=== PATIENT | female | born 1950 | race Caucasian/White ===

== ENCOUNTER 2020-09-27 13:38 | Outpatient (CLI) | payer MEDICARE, SELFPAY ==
--- NOTE | ~2020-09-27 | DEXA_ITS ---
Bone Density Report Name: Araceli Rider Age: 70 Sex: Female Ethnicity: White Date of : 1950 Indication: postmenopausal; parental hip fracture; height loss; asthma or emphysema; hysterectomy; Referring Provider: Breana Munson Study: Bone densitometry was performed. Exam Date: September 27, 2020 Accession number: [id number] Bone Density: Region BMD T-score Z-score Classification AP Spine (L1-L4) 0.927 -1.1 1.0 Osteopenia Femoral Neck (Left) 0.598 -2.3 -0.5 Osteopenia Total Hip (Left) 0.728 -1.8 -0.3 Osteopenia Total Hip Bilateral Avg 0.728 -1.8 -0.3 Osteopenia Femoral Neck (Right) 0.598 -2.3 -0.5 Osteopenia Total Hip (Right) 0.728 -1.8 -0.3 Osteopenia World Health Organization criteria for BMD impression classify patients as: Normal (T-score at or above -1.0), Osteopenia (T-score between -1.0 and -2.5), or Osteoporosis (T-score at or below -2.5). 10-year Fracture Risk(1): Major Osteoporotic Fracture 23% Hip Fracture 9.5% Reported Risk Factors: [place] (), Neck BMD=0.598, BMI=28.7, parental fracture, smoking (1) FRAX(R) Version 3.08. Fracture probability calculated for an untreated patient. Fracture probability may be lower if the patient has received treatment. Previous Exams: Region Exam Age BMD T-score BMD Change BMD Change Date g/cm2 vs Baseline vs Previous AP Spine(L1-L4) 09/27/2020 70 0.927 -1.1 -0.182(-16.4%) -0.182(-16.4%) 09/18/2001 50 1.110 0.6 Total Hip(Left) 09/27/2020 70 0.728 -1.8 -0.188(-20.5%) -0.188(-20.5%) 09/18/2001 50 0.916 -0.2 Total Hip(Right) 09/27/2020 70 0.728 -1.8 -0.219(-23.1%) -0.219(-23.1%) 09/18/2001 50 0.947 0.0 *Denotes significance at 95% confidence level, LSC for AP Spine = 0.022 g/cm2, LSC for Total Hip = 0.027 g/cm2 Clinical Information Provided by Patient: Parent has had a hip fracture Smokes Has used the following medications: Vitamin D Has the following medical conditions: Asthma or Emphysema, Hysterectomy Patient maximum height was 63 Menopause Age: 40 No regular weight bearing exercise Does not regularly consume dairy products Drinks caffeinated beverages Onset of menses at age 12 Number of children 3 Impression: The patient has low bone mass, based on the Left Femoral Neck T-score. The patient has an estimated ten-year risk of hip fracture of 9.5% and an estimated ten-year risk of major fracture of 23%, based on the WHO FRAX algorithm. The misty
--- NOTE | ~2020-09-27 | MM_ITS ---
EXAMINATION: MM screening mimi BI w rianna HISTORY: Screening mammogram TECHNIQUE: Craniocaudal and mediolateral oblique 3-D tomosynthesis images were obtained and synthetic 2-D images were generated. CAD analysis was submitted and interpreted. COMPARISON: 03/03/2010 BREAST PARENCHYMAL COMPOSITION: The breasts are heterogeneously dense, which may obscure small masses . FINDINGS: There is no evidence of suspicious mass, calcification, or architectural distortion to sugg est malignancy in either breast. There has been no suspicious interval change. IMPRESSION: 1. No mammographic evidence of malignancy. 2. Recommend routine screening mammography in one year. BI-RADS Category 1: Negative Reviewed, dictated and finalized at location A.
== END 2020-09-27 13:39 | disposition home or self-care (01) ==
PROVIDERS: PCP Internal Medicine; Visit Provider Nurse Practitioner
DX: Z12.31 Encounter for screening mammogram for malignant neoplasm of breast (principal); Z78.0 Asymptomatic menopausal state; M85.89 Other specified disorders of bone density and structure, multiple sites
CPT/HCPCS: 77063; 77067; 77080

== ENCOUNTER 2021-03-27 15:12 | Outpatient (CLI) | payer MEDICARE, SELFPAY ==
--- NOTE | ~2021-03-27 | CT_ITS ---
EXAMINATION: CT lung screening DATE: 03/27/2021 15:42 INDICATION: Personal history of tobacco dependence TECHNIQUE: Computed tomography (CT) of the chest was performed without intravenous contrast. The dose -length product was 67.58 mGy-cm. Automated exposure control and iterative reconstruction technique w ere employed. COMPARISON: Chest x-ray dated 12/06/2007 FINDINGS: No thoracic lymphadenopathy. Small pericardial effusion. No significant pleural effusion. T he upper abdomen is unremarkable. Status post cholecystectomy. There is emphysema. There is apical sc arring/pleural thickening. There is right lower lobe atelectasis/scarring. There are small bilateral pulmonary nodules measuring 4 mm or less. No endobronchial lesions. There is mild thoracic spondylosi s. No lytic or blastic lesions. IMPRESSION: 1. Lung-RADS category 2: Benign appearance or behavior. Continue annual screening with noncontrast lo w-dose chest CT in 12 months. Reviewed, dictated and finalized at location A. IMPRESSION: 1. Lung-RADS category 2: Benign appearance or behavior. Continue annual screeni ng with noncontrast low-dose chest CT in 12 months.
== END 2021-03-27 15:13 | disposition home or self-care (01) ==
LOC: ANHIMG 15:13
PROVIDERS: PCP Internal Medicine; Visit Provider Internal Medicine
DX: Z87.891 Personal history of nicotine dependence (principal)
CPT/HCPCS: 71271

== ENCOUNTER 2021-11-10 14:13 | Outpatient (CLI) | payer MEDICARE, SELFPAY ==
--- NOTE | ~2021-11-10 | US_ITS ---
EXAMINATION: US arterial ankle brachial ind DATE: 11/10/2021 15:59 INDICATION: Peripheral vascular disease, unspecified. TECHNIQUE: Segmental pressures and plethysmographic and Doppler waveforms of the brachial and lower e xtremity arteries were obtained. COMPARISON: None. FINDINGS: Right and left brachial artery pressures of 163 mm Hg and 163 mm Hg, respectively, are concordant (no rmal difference <= 30 mmHg). The right ankle-brachial index (DAISY) is 1.07 (normal >= 0.9-1.0). The right great toe-brachial index (TBI) is 0.44 (normal >= 0.65). Arterial Doppler waveforms are biphasic at the ankle. The left DAISY is 1.07. The left TBI is 0.50. Arterial Doppler waveforms are biphasic at the ankle. IMPRESSION: 1. Decreased TBIs and normal ABIs, consistent with arterial occlusive disease. Note that ABIs may be overestimated if arteries are calcified. Reviewed, dictated and finalized at location A.
== END 2021-11-10 14:14 | disposition home or self-care (01) ==
LOC: ANHIMG 14:16
PROVIDERS: PCP Internal Medicine; Visit Provider Nurse Practitioner
DX: I73.9 Peripheral vascular disease, unspecified (principal); M79.671 Pain in right foot; M79.672 Pain in left foot
CPT/HCPCS: 93922

== ENCOUNTER 2022-11-15 10:19 | Outpatient (CLI) | payer MEDICARE, SELFPAY ==
--- NOTE | ~2022-11-15 | DEXA_ITS ---
Bone Density Report Name: SANJU MCDANIEL Age: 72 Sex: Female Ethnicity: White Date of : 1950 Indication: osteopenia; monitoring treatment; parental hip fracture; height loss; asthma or emphysema; hysterectomy; postmenopausal Referring Provider: SUSANA, [facility] Study: Bone densitometry was performed. Exam Date: November 15, 2022 Accession number: [id number] Bone Density: Region BMD T-score Z-score Classification AP Spine(L1-L4) 0.949 -0.9 1.3 Normal Femoral Neck (Left) 0.591 -2.3 -0.4 Osteopenia Total Hip (Left) 0.778 -1.3 0.3 Osteopenia Femoral Neck (Right) 0.636 -1.9 0.0 Osteopenia Total Hip (Right) 0.760 -1.5 0.1 Osteopenia Total Hip Mean 0.769 -1.4 0.2 Osteopenia World Health Organization criteria for BMD impression classify patients as: Normal (T-score at or above -1.0), Osteopenia (T-score between -1.0 and -2.5), or Osteoporosis (T-score at or below -2.5). 10-year Fracture Risk: FRAX not reported because: Treated for osteoporosis Previous Exams: Region Exam Age BMD T-score BMD Change BMD Change Date g/cm2 vs Baseline vs Previous AP Spine (L1-L4) 11/15/2022 72 0.949 -0.9 0.022 (2.4%) 0.022 (2.4%) 09/27/2020 70 0.927 -1.1 Total Hip(Left) 11/15/2022 72 0.778 -1.3 0.050 (6.8%)* 0.050 (6.8%)* 09/27/2020 70 0.728 -1.8 Total Hip(Right) 11/15/2022 72 0.760 -1.5 0.031 (4.3%)* 0.031 (4.3%)* 09/27/2020 70 0.728 -1.8 *Denotes significance at 95% confidence level, LSC for AP Spine = 0.022 g/cm2, LSC for Total Hip = 0.027 g/cm2 Clinical Information Provided by Patient: Parent has had a hip fracture Smokes Is being treated for osteoporosis Has used the following medications: Fosamax (i.e. alendronate), Vitamin D Has the following medical conditions: Asthma or Emphysema, Hysterectomy Patient maximum height was 63 Menopause Age: 40 Does not regularly consume dairy products Drinks caffeinated beverages Onset of menses at age 12 Number of children 3 Impression: The patient has low bone mass, based on the Left Femoral Neck T-score. The patient has risk factors, including: parental hip fracture, smoking. No significant bone loss was observed. Discussion: PATIENT UNDER TREATMENT WITH NO SIGNIFICANT BMD LOSS SINCE LAST EXAM. In an untreated patient, BMD typically declines with age. A lack of decline or gain is usually a sign that treatment is efficacious and fracture risk is reduced. It is important
--- NOTE | ~2022-11-15 | CT_ITS ---
CT Scan of the Chest without Contrast: Clinical Indication: Lung cancer screening, smoking history Technique: Contiguous sections were acquired throughout the chest without intravenous contrast. Dose reduction technique was used on this scan by utilizing automated exposure control and iterative recon struction technique. The dose-length product (DLP) was 87.68 mGy-cm. COMPARISON: 03/27/2021 Findings: There is no evidence of any significant mediastinal, hilar or axillary lymphadenopathy. The mediastin al soft tissues appear normal. Minimal pericardial fluid noted. No pleural effusions. Biapical scarring is present. There is mild emphysema in the upper lobes. Focal areas of scarring at the right middle lobe and right lower lobe are noted. Images through the upper abdomen reveal atherosclerotic calcifications of the aorta. Impression: Lung RADS 2: Benign appearance. 12 month follow-up screening CT advised. Mild emphysema. Reviewed, dictated and finalized at [facility]. Impression: Lung RADS 2: Benign appearance. 12 month follow-up screening CT advised. Mild emphysema.
--- NOTE | ~2022-11-15 | MM_ITS ---
EXAMINATION: MM screening [facility] BI w rianna HISTORY: Screening mammogram TECHNIQUE: Craniocaudal and mediolateral oblique 3-D tomosynthesis images were obtained and synthetic 2-D images were generated. CAD analysis was submitted and interpreted. COMPARISON: 09/27/2020, 03/03/2010 BREAST PARENCHYMAL COMPOSITION: The breasts are heterogeneously dense, which may obscure small masses . FINDINGS: No suspicious mass, calcification, or architectural distortion are identified in either steph ast to suggest malignancy. There has been no suspicious interval change. IMPRESSION: 1. No mammographic evidence of malignancy. 2. Recommend routine screening mammography in one year. BI-RADS Category 1: Negative Reviewed, dictated and finalized at location A.
== END 2022-11-15 10:20 | disposition home or self-care (01) ==
PROVIDERS: PCP Family Medicine; Visit Provider Family Medicine
DX: Z12.31 Encounter for screening mammogram for malignant neoplasm of breast (principal); Z12.2 Encounter for screening for malignant neoplasm of respiratory organs; F17.210 Nicotine dependence, cigarettes, uncomplicated; J43.9 Emphysema, unspecified; M85.89 Other specified disorders of bone density and structure, multiple sites
CPT/HCPCS: 71271; 77063; 77067; 77080

== ENCOUNTER 2023-11-18 14:06 | Outpatient (CLI) | payer MEDICARE, SELFPAY ==
--- NOTE | ~2023-11-18 | CT_ITS ---
CT Scan of the Chest without Contrast: Clinical Indication: Lung cancer screening, nicotine dependence Technique: Contiguous sections were acquired throughout the chest without intravenous contrast. Dose reduction technique was used on this scan by utilizing automated exposure control and iterative recon struction technique. The dose-length product (DLP) was 76.21 mGy-cm. COMPARISON: 11/15/2022 Findings: There is no evidence of any significant mediastinal, hilar or axillary lymphadenopathy. The mediastin al soft tissues appear normal. Possible pericardial effusion. No pleural effusions. Stable biapical scarring and subcentimeter right apical pulmonary nodules. Mild to moderate emphysema present in the upper lobes. Stable focal scarring right middle lobe and right lower lobe. Images through the upper abdomen reveal no abnormalities. Impression: Lung RADS 2: Benign appearance. 12 month follow-up screening CT advised. Reviewed, dictated and finalized at [facility]. Impression: Lung RADS 2: Benign appearance. 12 month follow-up screening CT advised.
== END 2023-11-18 14:07 | disposition home or self-care (01) ==
PROVIDERS: PCP Family Medicine; Visit Provider Family Medicine
DX: Z12.2 Encounter for screening for malignant neoplasm of respiratory organs (principal); F17.210 Nicotine dependence, cigarettes, uncomplicated
CPT/HCPCS: 71271

== ENCOUNTER 2024-02-12 14:07 | Outpatient (CLI) | payer MEDICARE, SELFPAY ==
--- NOTE | ~2024-02-12 | MM_ITS ---
EXAMINATION: MM screening mimi BI w rianna HISTORY: Screening TECHNIQUE: Craniocaudal and mediolateral oblique 3-D tomosynthesis images were obtained and synthetic 2-D images were generated. CAD analysis was submitted and interpreted. COMPARISON: Comparison to multiple prior studies sequentially, with oldest reviewed study dated 09/27. BREAST PARENCHYMAL COMPOSITION: Dense: The breasts are heterogeneously dense, which may obscure small masses FINDINGS: There is no evidence of suspicious mass, calcification, or architectural distortion to sugg est malignancy in either breast. There has been no suspicious interval change. IMPRESSION: 1. No mammographic evidence of malignancy. 2. Recommend routine screening mammography in one year. BI-RADS Category 1: Negative Reviewed, dictated and finalized at location B.
== END 2024-02-12 14:08 | disposition home or self-care (01) ==
LOC: ANHIMG 14:08
PROVIDERS: PCP Family Medicine; Visit Provider Family Medicine
DX: Z12.31 Encounter for screening mammogram for malignant neoplasm of breast (principal)
CPT/HCPCS: 77063; 77067

== ENCOUNTER 2024-09-12 12:09 | Emergency (ER) | payer MEDICARE, SELFPAY ==
--- NOTE | ~2024-09-12 | XR_ITS ---
EXAMINATION: XR chest 2V DATE: 09/12/2024 12:34 INDICATION: Shortness of breath. TECHNIQUE: Frontal and lateral views of the chest were obtained. COMPARISON: Chest 2 views 12/06/2007, chest CT 11/18/2023 FINDINGS: There is mild scarring at the lung apices. There are lucencies in the lungs, consistent wit h emphysema. No pleural effusion or pneumothorax. The heart size is normal. Surgical clips in the rig ht upper quadrant are likely from cholecystectomy. IMPRESSION: 1. Emphysema. Reviewed, dictated and finalized at location A. ASTRUCTURE CONSULTANT IMPRESSION: 1. Emphysema.
--- OUTSIDE RECORDS SUMMARY | 2024-09-12 12:13 | XMS_ITS | Data Portability ---
Author Organization [place] [facility] [employer], Main Office Address [address] [place] [address] Care Team Providers Care Beadworker Name Role Phone JARETT BLACK Primary Care Provider [phone] Assessment Encounter Date Assessment Date Assessment LastModified by Organization Details LastModified Time 01/15/2024 01/15/2024 73 yo F with - HLD - EMPHYSEMA, mild - DEPRESSION - ANXIETY - CHRONIC INSOMNIA - HTN - RLS - OSTEOPOROSIS - SMOKER - OVERWEIGHT LDCT chest: 11/18/23. Annual labs: 09/25/23. LDCT chest: 11/15/22. Annual labs: 09/12/22. D/w pt in detail about her conditions, recent labs & imagines and further plan of care. Will do random UDS today. [place]. [place] declined to do any changes in her Anxiety meds. Meds as directed. Diet and exercise explained in detail. BP diary education given and call us if any concerns. Cont f/u with Derm at [facility] [facility] as per schedule. Offered to refer to Counsellor/Psych ; but pt declined. Offered to refer for PFT/Pulmo; but pt declined. HM: WWE - 10/09/22, normal. Cont f/u as needed. Mammo - 11/15/22, normal. Ordered. Colonoscopy - Pt declined. Cologuard 09/20/22 - neg. DEXA - 11/15/22, osteopenia ++. Flu - Pt declined. Tdap - Pt declined. Pneumo - Pt declined. Shingrix - At pharmacy/HD. F/u in 1-2 months. Lipids before next visit. Annual labs in 09/29. [email or web address] Not available 01/15/2024 14:27:44 02/19/2024 02/19/2024 73 yo F with - HLD - EMPHYSEMA, mild - DEPRESSION - ANXIETY - CHRONIC INSOMNIA - HTN - RLS - OSTEOPOROSIS - SMOKER - OVERWEIGHT LDCT chest: 11/18/23. Annual labs: 09/25/23. LDCT chest: 11/15/22. Annual labs: 09/12/22. D/w pt in detail about her conditions, recent labs & imagines and [place] of care. [place]. Pt declined to do any changes in her Anxiety meds. Meds as directed. Diet and exercise explained in detail. BP diary education given and call us if any concerns. Cont f/u with Derm at [facility] [facility] as per schedule. Offered to refer to Counsellor/Psych ; but pt declined. Offered to refer for PFT/Pulmo; but pt declined. HM: WWE - 10/09/22, normal. Cont f/u as needed. Mammo - 02/12/24, normal. Colonoscopy - Pt declined. Cologuard 09/20/22 - neg. DEXA - 11/15/22, osteopenia ++. Flu - Pt declined. Tdap - Pt declined. Pneumo - Pt declined. Shingrix - At pharmacy/HD. F/u in 3 months. Lipids before next visit. Annual labs in 09/29. [email or web address] Not available 02/19/2024 14:37:18 05/21/2024 05/21/2024 73 yo F with - HLD - EMPHYSEMA, mild - DEPRESSION - ANXIETY - CHRONIC INSOMNIA - HTN - RLS - OSTEOPOROSIS - SMOKER - OVERWEIGHT LDCT chest: 11/18/23. Annual labs: 09/25/23. LDCT chest: 11/15/22. Annual labs: 09/12/22. D/w pt in detail about her conditions, recent labs & imagines and [place] of care. [place]. Pt declined to do any changes in her Anxiety meds. Meds as directed. Diet and exercise explained in detail. BP diary education given and call us if any concerns. Cont f/u with Derm at [facility] [facility] as per schedule. Offered to refer to Counsellor/Psych ; but pt declined. Offered to refer for PFT/Pulmo; but pt declined. HM: WWE - 10/09/22, normal. Cont f/u as needed. Mammo - 02/12/24, normal. Colonoscopy - Pt declined. Cologuard 09/20/22 - neg. DEXA - 11/15/22, osteopenia ++. Flu - Pt declined. Tdap - Pt declined. Pneumo - Pt declined. Shingrix - At pharmacy/HD. F/u in 3 months. Annual labs in 09/29. Not available 05/21/2024 14:11:20 08/24/2024 08/24/2024 73 yo F with - HLD - EMPHYSEMA, mild - DEPRESSION - ANXIETY - CHRONIC INSOMNIA - HTN - RLS - OSTEOPOROSIS - SMOKER - OVERWEIGHT LDCT chest: 11/18/23. Annual labs: 09/25/23. LDCT chest: 11/15/22. Annual labs: 09/12/22. D/w pt in detail about her conditions, recent labs & imagines and further plan of care. Will do random UDS today. Last dose was today morning. [place] Pt declined to do any changes in her Anxiety meds. Meds as directed. Diet and exercise explained in detail. BP diary education given and call us if any concerns. Cont f/u with Derm at [place] [facility] as per schedule. Offered to refer to Counsellor/Psych ; but pt declined. Offered to refer for PFT/Pulmo; but pt declined. HM: WWE - 10/09/22, normal. Cont f/u as needed. Mammo - 02/12/24, normal. Colonoscopy - Pt declined. Cologuard 09/20/22 - neg. DEXA - 11/15/22, osteopenia ++. Flu - Pt declined. Tdap - Pt declined. Pneumo - Pt declined. Shingrix - At pharmacy/HD. F/u in 2 months. Annual labs in 09/29. [email or web address] Not available 08/24/2024 14:48:41 09/09/2024 09/09/2024 The patient gave verbal consent using TelePhonic services and the consent is documented in the medical record prior to using the service. The patient has been informed of what a TeleMedicine visit is. Patient is located at home. Provider is located at office. Names and roles of persons in addition to the patient and provider participating in telemedicine services include staff. The patient had a 11 minute TeleMedicine consultation via phone call to discuss the following: Not available 09/09/2024 16:33:47 Plan of Treatment Reminders Order Date Submit Date Provider Last Modified By Organization Details Last Modified Time Details Appointments Medicare Wellness 30 2024 10:30A M Jarett Black MD Not available Not available Not available Lab drug screen, urine - To check for listed controlle d medicatio n [address] (Lab), [address] [place], [address], 09/04/2024 11:54:32 lipid panel, serum [address] (Lab), [address] [place], [address], 08/20/2024 13:57:48 drug screen, urine - To check for listed controlle d medicatio n 2023 024 [facility] (Lab), [address] [place], [address], 01/15/2024 22:14:45 lipid panel, serum 2023 024 [facility] (Lab), [address] [place], [address], 02/19/2024 19:50:51 Referral None recorded. Procedures None recorded. Surgeries None recorded. Imaging None recorded. Medication Orders azithromy shyla 250 mg tablet 2024 025 [facility] #01981, [address] [place], [place], [id number], 09/09/2024 16:38:49 prednison e 10 mg tablet 2024 025 [facility] #03297, [address] [place], [place], [id number], 09/09/2024 16:38:51 benzonata te 200 mg capsule 2024 025 [facility] #68449, [address] [place], [place], [id number], 09/09/2024 16:38:50 alendrona te 70 mg tablet 2024 025 [facility] #81352, [address] [place], [place], [id number], 08/24/2024 14:44:24 lisinopri l 20 mg-hydroc hlorothia zide 12.5 mg tablet 2024 025 [facility] #53498, [address] [place], [place], [id number], 08/24/2024 14:44:25 hydrocort isone 2.5 % topical cream 2024 025 [facility] #33020, [address] [place], [place], [id number], 08/24/2024 14:44:23 Calcium 600 + D(3) 600 mg-10 mcg (400 unit) tablet 2024 025 [facility] #51986, [address] [place], [place], [id number], 08/24/2024 14:44:24 rosuvasta tin 10 mg tablet 2024 025 [facility] #36979, [address] [place], [place], [id number], 08/24/2024 14:44:23 trazodone 150 mg tablet 2024 025 [facility] #20535, [address] [place], [place], [id number], 08/24/2024 14:44:34 albuterol sulfate HFA 90 mcg/actua tion aerosol inhaler 2024 025 [facility] #80277, [address] [place], [place], [id number], 08/24/2024 14:44:25 gabapenti n 300 mg capsule 2024 025 [facility] #24107, [address] [place], [place], [id number], 08/24/2024 14:44:26 alendrona te 70 mg tablet 2023 024 [facility] #12542, [address] [place], [place], [id number], 05/21/2024 14:18:12 lisinopri l 20 mg-hydroc hlorothia zide 12.5 mg tablet 2023 024 [facility] #41834, [address] [place], [place], [id number], 05/21/2024 14:18:41 nicotine 14 mg/24 hr daily transderm al patch 2023 024 [facility] #79217, [address] [place], [place], [id number], 05/21/2024 14:18:14 alprazola m 1 mg tablet 2023 024 [facility] #96822, [address] [place], [place], [id number], 05/21/2024 14:22:34 hydrocort isone 2.5 % topical cream 2023 024 [facility] #85393, [address] [place], [place], [id number], 05/21/2024 14:18:16 Calcium 600 + D(3) 600 mg-10 mcg (400 unit) tablet 2023 [facility] #16119, [address] [place], [place], [id number], 05/21/2024 14:18:21 rosuvasta tin 10 mg tablet 2023 [facility] #20107, [address] [place], [place], [id number], 05/21/2024 14:18:15 trazodone 150 mg tablet 2023 [facility] #93247, [address] [place], [place], [id number], 05/21/2024 14:18:14 albuterol sulfate HFA 90 mcg/actua tion aerosol inhaler 2023 [facility] #05503, [address] [place], [place], [id number], 05/21/2024 14:18:15 gabapenti n 300 mg capsule 2023 [facility] #24332, [address] [place], [place], [id number], 05/21/2024 14:18:31 alendrona te 70 mg tablet 2023 [facility] #08751, [address] [place], [place], [id number], 02/19/2024 14:32:09 lisinopri l 20 mg-hydroc hlorothia zide 12.5 mg tablet 2023 024 [facility] #85279, [address] [place], [place], [id number], 02/19/2024 14:32:08 nicotine 14 mg/24 hr daily transderm al patch 2023 024 [facility] #51302, [address] [place], [place], [id number], 02/19/2024 14:38:44 hydrocort isone 2.5 % topical cream 2023 024 [facility] #28482, [address] [place], [place], [id number], 02/19/2024 14:32:10 Calcium 600 + D(3) 600 mg-10 mcg (400 unit) tablet 2023 024 [facility] #34255, [address] [place], [place], [id number], 02/19/2024 14:32:11 rosuvasta tin 10 mg tablet 2023 024 [facility] #43805, [address] [place], [place], [id number], 02/19/2024 14:32:12 trazodone 150 mg tablet 2023 024 [facility] #31837, [address] [place], [place], [id number], 02/19/2024 14:32:13 albuterol sulfate HFA 90 mcg/actua tion aerosol inhaler 2023 024 [facility] #61785, [address] [place], [place], [id number], 02/19/2024 14:32:11 gabapenti n 300 mg capsule 2023 024 [facility] #88025, [address] [place], [place], [id number], 02/19/2024 14:32:10 alendrona te 70 mg tablet 2023 024 [facility] #06299, [address] [place], [place], [id number], 01/15/2024 14:11:24 Chantix Starting Month Box 0.5 mg (11)-1 mg (42) tablets in dose pack 2023 [facility] #20316, [address] [place], [place], [id number], 01/15/2024 14:11:25 nicotine 14 mg/24 hr daily transderm al patch 2023 [facility] #97437, [address] [place], [place], [id number], 01/15/2024 14:11:46 hydrocort isone 2.5 % topical cream 2023 [facility] #25758, [address] [place], [place], [id number], 01/15/2024 14:11:27 albuterol sulfate HFA 90 mcg/actua tion aerosol inhaler 2023 024 [facility] #83683, [address] [place], [place], [id number], 01/15/2024 14:11:27 gabapenti n 300 mg capsule 2023 024 [facility] #06932, [address] [place], [place], [id number], 01/15/2024 14:11:28 meclizine 25 mg tablet 2023 024 [facility] #72823, [address] [place], [place], [id number], 01/15/2024 14:11:28 lisinopri l 20 mg-hydroc hlorothia zide 12.5 mg tablet 2023 [facility] #33140, [address] [place], [place], [id number], 01/15/2024 14:11:28 alprazola m 1 mg tablet 2023 [facility] #32156, [address] [place], [place], [id number], 01/15/2024 14:11:46 Calcium 600 + D(3) 600 mg-10 mcg (400 unit) tablet 2023 [facility] #91421, [address] [place], [place], [id number], 01/15/2024 14:11:26 rosuvasta tin 10 mg tablet 2023 [facility] #18506, [address] [place], [place], [id number], 01/15/2024 14:11:26 trazodone 150 mg tablet 2023 [facility] #26406, [address] [place], [place], [id number], 01/15/2024 14:11:27 Patient TargetsNo targets recorded. Patient Instructions Encounter Date Encounter Id Patient Instructions Last Modified By Organization Details Last Modified Time 09/09/2024 [id number] Due to the COVID-19 (Novel Coronavirus) pandemic, it is within this context (and with the understanding that this method of patient encounter is in the patient s best interest as well as the health and safety of other patients and the public) that veterans health administration is being provided for this patient encounter rather than a [id number] visit. This patient encounter is appropriate at this time. This patient has been advised of the potential risks and limitations of this mode of treatment (including, but not limited to, the absence of in-person examination) and has agreed to be treated in a remote fashion despite these risks. Any and all of the patient s /patient s family s questions on this issue have been answered, and I have made no promises or guarantees to the patient. The patient has also been advised to contact this office for worsening conditions or problems, and seek emergency medical treatment and/or call 911 if the patient deems either necessary. HPI and/or vitals, if listed, were provided by the patient. Not available 09/09/2024 16:33:15 Reason for Referral None Reported. Results Created Date Observation Date Name Description Value Unit Range Abnormal Flag Note LastModifiedBy Organization Detail LastModifiedTime 01/15/20 24 01/15/2024 URINE DRUG SCREE N amphetamines NEGATI VE Amphe tamin e cut off 500 ng/mL Not Available [facility] (Lab) [address] [place], [address], 01/15/2024 22:14:45 01/15/20 24 01/15/2024 URINE DRUG SCREE N barbiturates NEGATI VE Adelina turat e cut off 200 ng/mL Not Available [facility] (Lab) [address] [place], [address], 01/15/2024 22:14:45 01/15/20 24 01/15/2024 URINE DRUG SCREE N benzodiazepi jasmeet POSITI VE abnormal Benzo diaze pine cut off 200 ng/mL Not Available [facility] (Lab) [address] [place], [address], 01/15/2024 22:14:45 01/15/20 24 01/15/2024 URINE DRUG SCREE N cocaine NEGATI VE Cocai ne metab olite cut off 150 ng/mL Not Available [facility] (Lab) [address] [place], [address], 01/15/2024 22:14:45 01/15/20 24 01/15/2024 URINE DRUG SCREE N fentanyl NEGATI VE Fenta nyl cut off 1.0 ng/mL Not Available [facility] (Lab) [address] [place], [address], 01/15/2024 22:14:45 01/15/20 24 01/15/2024 URINE DRUG SCREE N methadone NEGATI VE Metha done cutof f 300 ng/mL . Not Available [facility] (Lab) [address] [place], [address], 01/15/2024 22:14:45 01/15/20 24 01/15/2024 URINE DRUG SCREE N opiates NEGATI VE Opiat e cut off 300 ng/mL Not Available [facility] (Lab) [address] [place], [address], 01/15/2024 22:14:45 01/15/20 24 01/15/2024 URINE DRUG SCREE N oxycodone NEGATI VE Oxyco done cut off 100 ng/mL Not Available [facility] (Lab) [address] [place], [address], 01/15/2024 22:14:45 01/15/20 24 01/15/2024 URINE DRUG SCREE N phencyclidin e NEGATI VE PCP cut off 25 ng/mL Not Available [facility] (Lab) [address] [place], [address], 01/15/2024 22:14:45 01/15/20 24 01/15/2024 URINE DRUG SCREE N marijuana POSITI VE abnormal Marij uana cut off 50 ng/mL ANY POSIT BRICE RESUL TS REPOR BILLIE ARE UNCON FIRME D, AND SUCH, SHOUL D BE USED FOR MEDIC AL TREAT MENT PURPO SES ONLY. Not Available [facility] (Lab) [address] [place], [address], 01/15/2024 22:14:45 02/19/20 24 02/19/2024 LIPID PANEL cholesterol 130 mg/dL 140-19 9 low NIH ROLO NSUS RECOM MENDA TION FOR SHRUTHI STERO L: ADULT CHILD LOW RISK: <200 <170 BORDE RLINE : <200- 239 ----- HIGH RISK: >240 >200 Not Available [facility] (Lab) [address] [place], [address], 02/19/2024 19:50:51 02/19/20 24 02/19/2024 LIPID PANEL triglyceride s 91 mg/dL 0-150 NIH ROLO NSUS REPOR T RECOM MENDA TION FOR TRIGL YCERI ELSA: ADULT CHILD LOW RISK: <150 ----- BODER LINE: 150-1 99 ----- HIGH RISK: >200 ----- Not Available [facility] (Lab) [address] [place], [address], 02/19/2024 19:50:51 02/19/20 24 02/19/2024 LIPID PANEL HDL cholesterol 66 mg/dL 40- Not Available [facility] (Lab) [address] [place], [address], 02/19/2024 19:50:51 02/19/20 24 02/19/2024 LIPID PANEL LDL cholesterol, calculated 46 mg/dL 0-130 NIH ROLO NSUS REPOR T RECOM MENDA TIONS FOR LDL: ADULT CHILD LOW RISK <130 <110 (OPTI MAL LDL) <100 ----- BORDE RLINE : 130-1 59 ----- HIGH RISK: >160 >130 A TRIGL YCERI DE RESUL T >400 INVAL IDATE S THE CALCU LATIO N FOR LDL FRACT IONAT ION - THE LDL RESUL T WILL NOT BE REPOR BILLIE. Not Available [facility] (Lab) [address] [place], [address], 02/19/2024 19:50:51 02/12/20 24 02/12/2024 MAMMO , scree ameena, bilat eral No observ ation record ed. [facility] [address], [place], [address], 02/19/2024 14:28:06 Result Notes None recorded. Problems Name Problem SNOMED Code Status Onset Date Resolution Date Notes Provider Name and Address Organization Details Recorded Time Anxiety disorder 298216426 Active 2022 Not Available [facility] 3 01:47:45 Restless legs 59388547 Active 2022 Not Available [facility] 3 01:47:45 Depressive disorder 14153084 Active 2022 Not Available [facility] 3 01:47:45 Hypertensi ve disorder 75607040 Active 2022 Not Available [facility] 3 01:47:45 Hyperlipid emia 74406797 Active 2022 Not Available [facility] 3 01:47:45 Osteoporos is 63965317 Active 2022 Not Available [facility] 3 01:47:45 194199557 Active 2022 Not Available [facility] 3 01:47:46 Chronic insomnia 139121100 Active 2022 Not Available [facility] 3 01:47:46 Smoker 95618394 Active 2022 Not Available [facility] 3 01:47:46 Overweight 460414427 Active 2022 Jarett Black MD [address], [place], [address] , [employer] [facility] [employer] 3 10:13:45 Screening for malignant neoplasm of colon Active 2022 Sil Garner NP [address], [address], [place], [address] , [employer] 3 14:53:49 Osteopenia 496527575 Active 2022 Jarett Black MD [address], [address], [place], [address] , [employer] [facility] [employer] 3 08:22:33 Pulmonary emphysema 47906208 Active 2022 Jarett Black MD [address], [address], [place], [address] , [employer] 3 14:16:30 Herpes labialis 8159893 Active 2022 Jarett Black MD [address], [address], [place], [address] , [employer] 3 15:10:57 Lesion of skin of face 917999888729 Active 2022 Jarett Black MD [address], [address], [place], [address] , [employer] 3 15:11:42 Bronchitis 84947974 Active 2023 Jarett Black MD [address], [address], [place], [address] , [employer] 4 14:55:53 Acute urinary tract infection 914888834 Active 2023 SAVITA Dutta [address], [address], [place], [address] , [employer] 4 14:08:44 Bilateral earache 324935358 Active 2023 Jarett Black MD [address], [address], [place], [address] , [employer] 4 14:29:02 Allergic contact dermatitis 451971823 Active 2023 Jarett Black MD [address], [address], [place], [address] , [employer] 4 14:07:02 Motion sickness 45352364 Active 2023 Jarett Black MD [address], [address], [place], [address] , [employer] [facility] 4 14:07:25 Cough 72639797 Active 2024 JarettMD Love [address], [place], [address] , [place] [facility] 16:35:17 Fever 628018482 Active 2024 MD Love Weaver [address], [place], [address] , [place] [facility] 16:38:35 Problem Notes None recorded. Procedures Surgical History Date Name Laterality Status Provider Name and Address Organization Details Recorded Time 08/24/19 25 Smoking Cessation completed MD Love Weaver [address], [place], [address], [employer] [place] [facility] 08/24/2024 14:38:39 05/21/20 24 Smoking Cessation completed MD Love Weaver [address], [place], [address], [place] [facility] [employer] 05/21/2024 14:12:23 09/17/19 24 Medicare Wellness CPT Code, Initial completed October VENUS Beckham [place] [facility] 09/16/2023 15:09:23 09/17/19 24 Smoking Cessation completed MD Love Weaver [address], [place], [address], [place] [facility] 09/17/2023 12:46:57 06/18/20 23 Smoking Cessation completed MD Love Weaver [address], [place], [address], [place] [facility] 06/18/2023 12:47:33 03/12/20 23 Smoking Cessation completed MD Love Weaver [address], [place], [address], [employer] [place] [facility] 03/12/2023 14:30:09 12/11/19 23 Smoking Cessation completed MD Love Weaver [address], [place], [address], [place] [facility] 12/10/2022 14:17:07 09/13/19 23 Smoking Cessation completed Jarett Black MD [address], [address], [place], [address], [facility] [employer] 09/12/2022 10:23:27 07/08/19 22 Most Recent Bone Density completed Not Available [facility] 09/06/2022 01:47:18 07/08/19 03 Hysterectomy completed Not Available [facility] 09/06/2022 01:47:19 cholecystectomy completed Not Available [facility] 09/06/2022 01:47:19 Tonsillectomy completed Not Available [facility] 09/06/2022 01:47:19 Imaging Results Imaging Date Name Status LastModified by Organiz ation Details LastModified Time 02/12/2024 MAMMO, screening, bilateral completed [id number], [place], [address], 02/19/2024 14:28:06 Procedure Notes None recorded. Medical Equipment None Reported. Allergies No known drug allergies Medications Name Sig Start Date Stop Date Status Note LastModified by Organization Details LastModified Time bupropion HCl SR 150 mg tablet,12 hr sustained-r elease Take 1 tablet twice a day by oral route as directed for 90 days. 09/16 completed Not Available Not Available Not Available prednisone 10 mg tablet Take 1 tablet every day by oral route as directed for 7 days. 2024 active Not Available Not Available Not Avai lable nicotine 14 mg/24 hr daily transdermal patch Apply 1 patch every day by transderm al route as directed for 30 days. 2023 active Not Available Not Available Not Avai lable trazodone 50 mg tablet Take 1 tablet every day by oral route at bedtime for 90 days. 09/27 completed Not Available Not Available Not Available lisinopril 20 mg-hydrochl orothiazide 12.5 mg tablet Take 1 tablet every day by oral route in the morning for 90 days. 2024 active Not Available Not Available Not Avai lable azithromyci n 250 mg tablet TAKE 2 TABLETS (500 MG) BY ORAL ROUTE ONCE DAILY FOR 1 DAY THEN 1 TABLET (250 MG) BY ORAL ROUTE ONCE DAILY FOR 4 DAYS 2024 active Not Available Not Available Not Avai lable alprazolam 1 mg tablet TAKE 1 TABLET BY MOUTH EVERY 12 HOURS NEEDED 2024 active Not Available Not Available Not Avai lable benzonatate 200 mg capsule Take 1 capsule every 8 hours by oral route as needed for 5 days. 2024 active Not Available Not Available Not Avai lable hydrocodone 5 mg-acetamin ophen 325 mg tablet 10/15 completed Not Available Not Available Not Available alendronate 70 mg tablet Take 1 tablet every week by oral route as directed. 2024 active Not Available Not Available Not Avai lable sertraline 100 mg tablet Take 1 tablet every day by oral route in the morning for 90 days. 01/14 completed Not Available Not Available Not Available valacyclovi r 500 mg tablet Take 1 tablet 3 times a day by oral route as directed for 7 days. active Not Available Not Available No t Available ondansetron 8 mg disintegrat ing tablet 10/15 completed Not Available Not Available Not Available hydrocortis one 2.5 % topical cream with perineal applicator 08/02 completed Not Available Not Available Not Available meclizine 25 mg tablet Take 1 tablet every 8 hours by oral route as needed for 10 days. active Not Available Not Available No t Available cephalexin 500 mg capsule 10/15 completed Not Available Not Available Not Available trazodone 150 mg tablet Take 1 tablet every day by oral route at bedtime for 90 days. 2024 active Not Available Not Available Not Avai lable nicotine 21 mg/24 hr daily transdermal patch Apply 1 patch every day by transderm al route as directed for 30 days. 2022 active Not Available Not Available Not Avai lable gabapentin 300 mg capsule Take 1 capsule every 12 hours by oral route as directed for 90 days. 2024 active Not Available Not Available Not Avai lable hydrocortis one 2.5 % topical cream APPLY A THIN LAYER TO THE AFFECTED AREA(S) BY TOPICAL ROUTE 2 TIMES PER DAY 2024 active Not Available Not Available Not Avai lable zolpidem 10 mg tablet 10/09 completed Not Available Not Available Not Available albuterol sulfate HFA 90 mcg/actuati on aerosol inhaler Inhale 2 puffs every 6 hours by inhalatio n route as needed for 15 days. 2024 active Not Available Not Available Not Avai lable sertraline 50 mg tablet Take 1 tablet every day by oral route in the morning for 90 days. 09/27 completed Not Available Not Available Not Available neomycin-po lymyxin-hyd rocort 3.5 mg-10,000 unit/mL-1 % ear drops,susp INSTILL 3 DROPS INTO AFFECTED EAR(S) BY OTIC ROUTE 3 TIMES PER DAY 01/14 completed Not Available Not Available Not Available rosuvastati n 5 mg tablet Take 1 tablet every day by oral route at bedtime for 90 days. 10/15 completed Not Available Not Available Not Available rosuvastati n 10 mg tablet Take 1 tablet every day by oral route at bedtime for 90 days. 2024 active Not Available Not Available Not Avai lable nitrofurant oin monohydrate /macrocryst als 100 mg capsule Take 1 capsule every 12 hours by oral route as directed for 5 days. 01/14 completed Not Available Not Available Not Available Vitamin C 2022 active Not Available Not Available Not Avai lable Oysco 500/D 2022 active Not Available Not Available Not Avai lable Fish Oil 2022 active Not Available Not Available Not Avai lable varenicline tartrate 0.5 mg (11)-1 mg (42) tablets in a dose pack Take 1 startr pk every day by oral route as directed. active Not Available Not Available No t Available Calcium 600 + D(3) 600 mg-10 mcg (400 unit) tablet Take 1 tablet twice a day by oral route as directed for 90 days. 2024 active Not Available Not Available Not Avai lable Paxlovid 300 mg (150 mg x 2)-100 mg tablets in a dose pack 08/02 completed Not Available Not Available Not Available Vitals Date Recorded Body height Body mass index (BMI) Body weight Body temperature Heart rate Oxygen saturation Oxygen saturation in Arterial blood by Pulse oximetry Systolic blood pressure Diastolic blood pressure Provider Name and Address Organization Details Last Updated DateTime 4 160.02 cm 27.5 kg/m2 54689.2 5 g 96.9 [degF] 68 /min 98 % 98 % 116 mm[Hg] 78 mm[Hg] Yadira Patel RN [facility] 4 14:00:58 Date Recorded Body height Body mass index (BMI) Body weight Body temperature Heart rate Respiratory rate Oxygen saturation Oxygen saturation in Arterial blood by Pulse oximetry Systolic blood pressure Diastolic blood pressure Provider Name and Address Organization Details Last Updated DateTime 4 160.02 cm 27.1 kg/m2 49477.6 3 g 97.1 [degF] 62 /min 20 /min 98 % 98 % 122 mm[Hg] 66 mm[Hg] Mervin Thompson [facility] [employer] 4 14:19:52 Date Recorded Body height Body mass index (BMI) Body weight Body temperature Heart rate Oxygen saturation Oxygen saturation in Arterial blood by Pulse oximetry Provider Name and Address Organization Details Last Updated DateTime 4 160.02 cm 25.8 kg/m2 88943.7 7 g 97.3 [degF] 80 /min 95 % 95 % Yadira Patel RN [facility] 4 14:06:50 Date Recorded Systolic blood pressure Diastolic blood pressure Provider Name and Address Organization Details Last Updated DateTime 05/21/2024 130 mm[Hg] 82 mm[Hg] Jarett Black MD [address], [place], [address] [employer] [facility] [employer] 05/21/2024 14:21:19 Date Recorded Body height Body mass index (BMI) Body weight Body temperature Oxygen saturation Oxygen saturation in Arterial blood by Pulse oximetry Heart rate Provider Name and Address Organization Details Last Updated DateTime 5 160.02 cm 27.3 kg/m2 32023.9 7 g 97.3 [degF] 97 % 97 % 94 /min Disha Andrews RN [facility] 5 14:35:25 Date Recorded Systolic blood pressure Diastolic blood pressure Provider Name and Address Organization Details Last Updated DateTime 08/24/2024 170 mm[Hg] 90 mm[Hg] Jarett Black MD [address], [address], [place], [address], [facility] 08/24/2024 14:46:03 Social History Question Answer Notes LastModified by Organization Details LastModified Time Tobacco Smoking Status Current Every Day Smoker Not Available [facility] 09/06/2022 01:47:07 Do You Have An Advance Directive? No MIGRATION.0301 [id number] Information not available 09/06/2022 What Is Your Level Of Alcohol Consumption? None MIGRATION.030 [id number] Information not available 09/06/2022 Are You Blind Or Do You Have Difficulty Seeing? No MIGRATION.030 [id number] Information not available 09/06/2022 Is Blood Transfusion Acceptable In An Emergency? No Information not available 10/09/2022 What Is Your Code Status? Full Code MIGRATION.030 [id number] Information not available 09/06/2022 In The 14 Days Before Symptom Onset, Have You Had Close Contact With A Laboratory-confi rmed COVID-19 While That Case Was Ill? No MIGRATION.030 [id number] Information not available 09/06/2022 In The 14 Days Before Symptom Onset, Have You Had Close Contact With A Person Who Is Under Investigation For COVID-19 While That Person Was Ill? No MIGRATION.0301 [id number] Information not available 09/06/2022 Are You Currently Employed? No Information not available 10/09/2022 Are You Deaf Or Do You Have Serious Difficulty Hearing? No MIGRATION.030 [id number] Information not available 09/06/2022 What Type Of Diet Are You Following? REGULAR MIGRATION.030 [id number] Information not available 09/06/2022 What Is The Highest Grade Or Level Of School You Have Completed Or The Highest Degree You Have Received? PB99205-4 MIGRATION.030 [id number] Information not available 09/06/2022 Have There Been Any Changes To Your Family Or Social Situation? Yes On 07/15/22 MIGRATION.0301 [id number] Information not available 09/06/2022 Do You Use Insect Repellent Routinely? No Information not available 10/09/2022 Where Do You Live? [facility] MIGRATION.030 [id number] Information not available 09/06/2022 Do You Have A Medical Power Of Security Shift Manager? No MIGRATION.030 054183 Information not available 09/06/2022 What Was The Date Of Your Most Recent Tobacco Screening? 09/17/2023 Long Time Ago [email or web address] Information not available 09/17/2023 Do You Have Any Pets? Yes 2 Dogs And Cat MIGRATION.0301 [id number] Information not available 09/06/2022 What Is Your Relationship Status? MIGRATION.0301 [id number] Information not available 09/06/2022 Do You Use Your Seat Belt Or Car Seat Routinely? No Information not available 10/09/2022 Do You Have Smoke And Carbon Monoxide Detectors In Your Home? Yes MIGRATION.0301 [id number] Information not available 09/06/2022 At What Age Did You Start Smoking Tobacco? 16 MIGRATION.0301 [id number] Information not available 09/06/2022 Are You Passively Exposed To Smoke? Yes MIGRATION.0301 [id number] Information not available 09/06/2022 Are There Any Smokers In Your House? Yes MIGRATION.0301 382110 Information not available 09/06/2022 How Much Tobacco Do You Smoke? 1 PPD MIGRATION.0301 [id number] Information not available 09/06/2022 Do You Participate In Social Media? Yes Information not available 10/09/2022 Do You Feel Stressed (tense, Restless, Nervous, Or Anxious, Or Unable To Sleep At Night)? [id number] MIGRATION.0301 [id number] Information not available 09/06/2022 Do You Use Sunscreen Routinely? No Information not available 10/09/2022 Have You Recently Traveled Abroad? No MIGRATION.0301 [id number] Information not available 09/06/2022 Are You Currently In School? No MIGRATION.0301 612243 Information not available 09/06/2022 Sex: Unknown Functional Status Question Answer Note LastModified by Organizat ion Details LastModified Time Do you have difficulty walking or climbing stairs? No MIGRATION.52345 63654 Information not available 09/06/2022 Do you have transportation difficulties? Yes drives MIGRATION.69928 51673 Information not available 09/06/2022 Are you able to walk? YESWOREST MIGRATION.36049 81301 Information not available 09/06/2022 Do you have difficulty doing errands alone? No MIGRATION.36973 32045 Information not available 09/06/2022 Are you able to care for yourself? Yes MIGRATION.29165 74524 Information not available 09/06/2022 Do you have difficulty dressing or bathing? No MIGRATION.97319 05114 Information not available 09/06/2022 What is your exercise level? Occasional stairs to basement MIGRATION.37880 32470 Information not available 09/06/2022 Mental Status Question Answer Note LastModified by Organizat ion Details LastModified Time Do you have difficulty concentrating, remembering or making decisions? No MIGRATION.[id number] Information not available 09/06/2022 Family History Relationship Description Onset Age of this Age Resolved Age Notes LastModified by Organization Details LastModified Time Mother Diabetes mellitus MIGRATION.[id number] Not available 09/06/2022 01:47:21 Medical History Condition Response DEPRESSION (INCLUDING POST ) Y INSOMNIA Y HYPERTENSION Y HIGH CHOLESTEROL / HYPERLIPIDEMIA Y Gynecological History Statement/Question Response How many live births 3 If Post Menopausal, Age at Menopause 52 Date of Last Mammogram 07/08/2021 Date of Last Colonoscopy Most Recent Mammogram Most Recent Bone Density 07/08/2021 Obstetrics History GPAL:G 3 P 0 0 0 3 Type Value Living 3 Total 3 Past Encounters Encounter ID Performer Location Encounter Start Date Encounter Closed Date Diagnosis/Indication Diagnosis SNOMED-CT Code Diagnosis ICD10 Code Diagnosis Note [id number] [address] [address] 08/02/2022 00:00:00 08/02/2022 17:24:37 [id number] Jarett Black MD [address] [address] 09/12/2022 09:56:49 09/12/2022 10:47:33 Hypertensive disorder 89519164 I10 Hyperlipidemia 08312807 E78.5 Chronic insomnia 8452145 04 F51.04 Anxiety disorder 3633587 06 F41.9 Osteoporosis 64631930 M8 1.0 Restless legs 06225185 G 25.81 Smoker 09357675 F17.200 Depressive disorder 3548 9007 F32.A Overweight 157144261 E66 .3 Screening mammography 24 656771 Z12.31 Screening for osteoporosis 832419865 Z13.820 Screening for malignant neoplasm of colon 736272343 Z12.11 [id number] Jarett Black MD [address] [address] 09/27/2022 11:23:24 09/27/2022 12:12:50 Hypertensive disorder 85857859 I10 Hyperlipidemia 68140589 E78.5 Chronic insomnia 4790950 04 F51.04 Anxiety disorder 06 F41.9 Osteoporosis 00012670 M8 1.0 Restless legs 56338065 G 25.81 Depressive disorder 3548 9007 F32.A Overweight 474789319 E66 .3 [id number] Sil Garner NP [address] [address] 10/09/2022 14:05:18 10/09/2022 15:09:33 Gynecologic examination 92844937 Z01.419 Encouraged well balanced meals, active lifestyle, and routine vision and dental appts.Mamm ogram scheduled for 11/15/22 Screening for malignant neoplasm of colon 276686958 Z12.11 Pt states she did cologuard September 2022. Nurse locating results to add to chart. [id number] Jarett Black MD [address] [address] 12/10/2022 13:49:46 12/10/2022 14:24:48 Hypertensive disorder 03916998 I10 Hyperlipidemia 85842223 E78.5 Chronic insomnia 8677522 04 F51.04 Depressive disorder 3548 9007 F32.A Anxiety disorder F41.9 Osteoporosis 52239498 M8 1.0 Restless legs 33977600 G 25.81 Overweight 622267477 E66 .3 Osteopenia 460001744 M85 .80 Medication monitoring 39 3412968 Z51.81 Pulmonary emphysema 8743 3001 J43.9 Smoker 38988248 F17.200 [id number] Jarett Black MD [address] [address] 01/29/2023 14:57:35 01/29/2023 15:31:08 Herpes labialis 2678990 B00.1 Lower Lesion of skin of face 1801171851 06 L98.9 Rt [id number] Jarett Black MD [place] [address] 03/12/2023 14:08:18 03/12/2023 14:37:24 Medication monitoring 903089662 Z51.81 Hypertensive disorder 38 229307 I10 Hyperlipidemia 87315460 E78.5 Chronic insomnia 5068941 04 F51.04 Depressive disorder 3548 9007 F32.A Anxiety disorder F41.9 Osteoporosis 56752392 M8 1.0 Restless legs 59944125 G 25.81 Overweight 567707070 E66 .3 Osteopenia 560448459 M85 .80 Pulmonary emphysema 8743 3001 J43.9 Smoker 43378644 F17.996 [id number] Jarett Black MD [place] [address] 1 06/18/2023 12:35:40 06/18/2023 13:06:21 Medication monitoring 674342698 Z51.81 Anxiety disorder F41.9 Depressive disorder 3548 9007 F32.A Chronic insomnia 9238737 04 F51.04 Hypertensive disorder 38 520127 I10 Hyperlipidemia 09073263 E78.5 Osteoporosis 47986797 M8 1.0 Restless legs 30087838 G 25.81 Overweight 275958068 E66 .3 Osteopenia 522179597 M85 .80 Pulmonary emphysema 8743 3001 J43.9 Smoker 20093972 F17.823 [id number] Jarett Black MD [address] [address] 09/17/2023 12:21:47 09/17/2023 12:56:31 Adult health examination 922776173 Z00.00 Screening for disorder 290008293 Z13.9 Anxiety disorder 06 F41.9 Depressive disorder 3548 9007 F32.A Chronic insomnia 1968800 04 F51.04 Hypertensive disorder 38 935699 I10 Hyperlipidemia 55813490 E78.5 Osteoporosis 41995939 M8 1.0 Restless legs 75353933 G 25.81 Overweight 346277358 E66 .3 Osteopenia 919017916 M85 .80 Pulmonary emphysema 8743 3001 J43.9 Smoker 86123206 F17.200 Screening mammography 24 170716 Z12.31 [id number] SAVITA Dutta [address] [address] 09/25/2023 12:41:57 09/25/2023 14:48:08 [id number] Jarett Black MD [place] [id number] 10/16/2023 14:12:40 10/16/2023 14:42:18 Anxiety disorder 532165174 F41.9 Depressive disorder 3548 9007 F32.A Chronic insomnia 5857703 04 F51.04 Hypertensive disorder 38 658206 I10 Hyperlipidemia 95287473 E78.5 Osteoporosis 94978313 M8 1.0 Restless legs 53361446 G 25.81 Overweight 960265275 E66 .3 Osteopenia 707556935 M85 .80 Pulmonary emphysema 8743 3001 J43.9 Smoker 17815929 F17.200 Bilateral earache 394233 003 H92.03 [id number] Jarett Black MD [place] [address] 01/15/2024 13:52:19 01/15/2024 14:31:47 Anxiety disorder 080267120 F41.9 Depressive disorder 3548 9007 F32.A Chronic insomnia 4482628 04 F51.04 Hypertensive disorder 38 862114 I10 Hyperlipidemia 82160248 E78.5 Osteoporosis 09350592 M8 1.0 Restless legs 80092654 G 25.81 Overweight 156306447 E66 .3 Osteopenia 335143336 M85 .80 Pulmonary emphysema 8743 3001 J43.9 Smoker 19765547 F17.200 Motion sickness 02491119 T75.3XXD Allergic c ontact dermatitis 320727735 L23.9 Medication monitoring 39 9120331 Z51.81 [id number] Jarett Black MD [place] [id number] 02/19/2024 14:06:28 02/19/2024 14:41:30 Anxiety disorder 279875118 F41.9 Depressive disorder 3548 9007 F32.A Chronic insomnia 2651679 04 F51.04 Hypertensive disorder 38 015634 I10 Hyperlipidemia 74699879 E78.5 Osteoporosis 56649994 M8 1.0 Restless legs 38046908 G 25.81 Overweight 254043685 E66 .3 Osteopenia 815691410 M85 .80 Pulmonary emphysema 8743 3001 J43.9 Smoker 80122987 F17.200 Allergic c ontact dermatitis 237276020 L23.9 [id number] [place] [address] 05/21/2024 13:59:45 05/21/2024 14:26:54 Hyperlipidemia 64702419 E78.5 Anxiety disorder 3907023 06 F41.9 Depressive disorder 3548 9007 F32.A Chronic insomnia 5913201 04 F51.04 Hypertensive disorder 38 953040 I10 Osteoporosis 79425051 M8 1.0 Restless legs 60163990 G 25.81 Overweight 564279118 E66 .3 Osteopenia 027037085 M85 .80 Pulmonary emphysema 8743 3001 J43.9 Smoker 54154128 F17.200 Allergic c ontact dermatitis 651375111 L23.9 [id number] Jarett Black MD [place] [id number] 08/24/2024 14:25:15 08/24/2024 14:58:00 Anxiety disorder 833336182 F41.9 Chronic insomnia 9346048 04 F51.04 Hyperlipidemia 42778474 E78.5 Depressive disorder 3548 9007 F32.A Hypertensive disorder 38 845282 I10 Osteoporosis 87051093 M8 1.0 Restless legs 71053609 G 25.81 Overweight 341920955 E66 .3 Osteopenia 320070684 M85 .80 Pulmonary emphysema 8743 3001 J43.9 Smoker 28881647 F17.200 Allergic c ontact dermatitis 973120973 L23.9 Medication monitoring 39 6633995 Z51.81 [id number] Jarett Black MD [facility] [address] [place] [address] 09/09/2024 16:33:01 09/09/2024 17:19:11 Cough 82780882 R05.9 Bronchitis 25110410 J40 Smoker 21085117 F17.200 Fever 512959941 R50.9 Health Concerns Section Related Observation LastModified by Organization Detai ls LastModified Time None Recorded Concern Status LastModified by Organization Details LastModified Time None Recorded Advance Directives Directive N: Payers Encounter Date Sequence Insurance Name Policy Number Policy Cid Covered Member ID Cid Member ID Guarantor Name 01/15/2024 2 [facility] (MEDICARE SUPPLEMENT) Araceli Adry [id number] Araceli Adry 01/15/2024 1 [facility] (MEDICARE REPLACEMENT/ ADVANTAGE - HMO) [id number] Araceli Adry [id number] Araceli Adry 02/19/2024 2 [facility] (MEDICARE SUPPLEMENT) Araceli Adry [id number] Araceli Adry 02/19/2024 1 [facility] (MEDICARE REPLACEMENT/ ADVANTAGE - HMO) [id number] Araceli Adry [id number] Araceli Adry 05/21/2024 2 [facility] (MEDICARE SUPPLEMENT) Araceli Adry [id number] Araceli Adry 05/21/2024 1 [facility] (MEDICARE REPLACEMENT/ ADVANTAGE - HMO) [id number] Araceli Adry [id number] Araceli Adry 08/24/2024 1 [facility] (MEDICARE REPLACEMENT/ ADVANTAGE - HMO) [id number] Araceli Adry [id number] Araceli Adry 09/09/2024 1 [facility] (MEDICARE REPLACEMENT/ ADVANTAGE - HMO) [id number] Araceli Adry [id number] Araceli Adry Notes Date Note Type Note Provider Name and Address Organization Details Recorded Time 01/15/2024 text/html Pt is here for f/u on her lab, meds and chronic conditions. Doing overall well. Denies any problem with mes. Denies any new concern. Pt has not gone for lab yet. Pt is going on a cruise and is requesting meds for it. Needs refill on her Alprazolam. Denies any mood swings/SI/HI. Pt has good family support and someone checks on her on a daily basis.Pt has chronic depression, anxiety and insomnia for last many yrs. Pt is on Alprazolam 1mg bid for last 30+ yrs and doesn't want to do any changes with it.Pt has chronic RLS and is on Gabapentin for it. Pt is f/u with Derm at [facility] for her skin cancer and got surgery with them. Jarett Black MD [address] [facility], [facility] [address], [place], [address], [employer] 01/15/2024 14:28:17 02/19/2024 text/html Pt is here for f/u on her lab, meds and chronic conditions. Doing overall well. Denies any problem with mes. Denies any new concern. Pt has not gone for lab yet. Pt wants to do it today. Doing overall well with her mood and anxiety. Denies any mood swings/SI/HI. Pt has good family support and someone checks on her on a daily basis.Pt has chronic depression, anxiety and insomnia for last many yrs. Pt is on Alprazolam 1mg bid for last 30+ yrs and doesn't want to do any changes with it.Pt has chronic RLS and is on Gabapentin for it. Pt is f/u with Derm at [facility] for her skin cancer and got surgery with them. Jarett Black MD [address] [facility], [facility] [address], [place], [address], [employer] 02/19/2024 14:38:50 05/21/2024 text/html Pt is here for f/u on her lab, meds and chronic conditions. Doing overall well. Denies any problem with mes. Denies any new concern. Doing overall well with her mood and anxiety. Denies any mood swings/SI/HI. Pt has good family support and someone checks on her on a daily basis.Pt has chronic depression, anxiety and insomnia for last many yrs. Pt is on Alprazolam 1mg bid for last 30+ yrs and doesn't want to do any changes with it.Pt has chronic RLS and is on Gabapentin for it. Pt is f/u with Derm at [facility] for her skin cancer and got surgery with them. Jarett Black MD [address], [facility] [address], [place], [address], [employer] 05/21/2024 14:23:09 08/24/2024 text/html Pt is here for f/u on her meds and chronic conditions. Doing overall well. Denies any problem with mes. Denies any new concern. Pt says she is checking her BP at home and its good as per pt. No concern with it. Doing overall well with her mood and anxiety. Denies any mood swings/SI/HI. Pt has good family support and someone checks on her on a daily basis.Pt has chronic depression, anxiety and insomnia for last many yrs. Pt is on Alprazolam 1mg bid for last 30+ yrs and doesn't want to do any changes with it.Pt has chronic RLS and is on Gabapentin for it. Pt is f/u with Derm at [facility] for her skin cancer and got surgery with them. Jarett Black MD [address], [place], [address], [employer] 08/24/2024 14:49:31 09/09/2024 text/html Telephone visit:ACV. C/o cough, fever, chills, congestion, fatigue for last 2-3 days. Pt says everyone around her is sick, no Flu. Pt has been doing otc meds, but still not getting better. Smoking ++. Jarett Black MD [address], [place], [address], [employer] 09/09/2024 16:58:07 OBGyn Episode No OBEpisode recorded.
--- OUTSIDE RECORDS SUMMARY | 2024-09-12 12:13 | XMS_ITS | Data Portability ---
Author Organization [facility] FERMINLeobardo Address [address] [place] [address] Assessment No assessment recorded. Plan of Treatment Reminders Order Date Submit Date Provider Last Modified By Organization Details Last Modified Time Details Appointments None recorded. Lab CBC 2015 016 [place] [facility], [address] [place] [address], [address], [place], [address], 6 09:24:52 CMP, serum or plasma 2015 016 [facility], [address] [place] [address], [address], [place], [address], 6 09:24:52 lipid panel, serum 2015 016 [facility], [address] [place] [address], [address], [place], [address], 6 09:24:53 TSH + free T4, serum 2015 016 [facility], [address] [place] [address], [address], [place], [address], 6 09:24:51 Referral gastroente rologist referral - history of polyps overdue for colonoscop y 2015 016 [facility] (Admitting), [address] [facility], [place], [address], 6 15:58:00 Procedures None recorded. Surgeries None recorded. Imaging None recorded. Medication Orders lovastatin 40 mg tablet 2015 016 [facility], [address] [place], [address], 6 15:49:20 lisinopril 20 mg-hydroch lorothiazi de 12.5 mg tablet 2015 016 [facility], [address] [place], [address], 6 15:35:13 lovastatin 40 mg tablet 2015 016 [facility], [address] [place], [address], 6 15:35:11 alprazolam 1 mg tablet 2015 016 [facility], [address] [place], [address], 6 16:15:45 zolpidem 5 mg tablet 2015 016 [facility], [address] [place], [address], 6 16:15:45 codeine 10 mg-guaifen esin 100 mg/5 mL oral liquid 2014 015 [facility], [address] [place], [address], 5 15:24:07 Cipro 500 mg tablet 2014 015 [facility], [address] [place], [address], 5 15:24:58 zolpidem 5 mg tablet 2014 015 [facility], [address] [place], [address], 5 16:33:32 alprazolam 1 mg tablet 2014 015 [facility], [address] [place], [address], 5 15:55:21 Patient TargetsNo targets recorded. Patient Instructions Encounter Date Encounter Id Patient Instructions Last Modified By Organization Details Last Modified Time 03/21/2015 [id number] bronchitis: care instructions Not available 03/21/2015 15:20:14 09/08/2015 [id number] learning about high blood pressure Not available 09/08/2015 15:31:50 09/26/2015 [id number] colon polyps: care instructions Not available 09/26/2015 15:44:23 learning about high blood pressure jnanney Not available 09/26/2015 15:44:12 Reason for Referral history of polyps overdue fo r colonoscopy Referring Physician: Felice Rizo, Family Medicine, Encounter Date: 09/26/2015 Results Created Date Observation Date Name Description Value Unit Range Abnormal Flag Note LastModifiedBy Organization Detail LastModifiedTime 09/09/19 16 09/10/2015 TSH + free T4, serum TSH 0.925 uIU/m L 0.450- 4.500 Not Available [facility] ([facility]) [address] [place], [address], 09/10/2015 09:24:51 09/09/19 16 09/10/2015 TSH + free T4, serum T4,free(dire ct) 1.05 NG/dL 0.82-1 .77 Not Available [facility] ([facility]) [address] [place], [address], 09/10/2015 09:24:51 09/09/19 16 09/10/2015 CBC WBC 7.9 x10e3 /uL 3.4-10 .8 Not Available [facility] ([facility]) [address] [place], [address], 09/10/2015 09:24:51 09/09/19 16 09/10/2015 CBC RBC 4.61 x10e6 /uL 3.77-5 .28 Not Available [facility] ([facility]) [address] [place], [address], 09/10/2015 09:24:51 09/09/19 16 09/10/2015 CBC hemoglobin 14.6 g/dL 11.1-1 5.9 Not Available [facility] ([facility]) [address] [place], [address], 09/10/2015 09:24:51 09/09/19 16 09/10/2015 CBC hematocrit 42.0 % 34.0-4 6.6 Not Available [facility] ([facility]) [address] [place], [address], 09/10/2015 09:24:51 09/09/19 16 09/10/2015 CBC MCV 91 fL 79-97 Not Available [facility] ([facility]) [address] [place], [address], 09/10/2015 09:24:51 09/09/1909/10/2015 CBC MCH 31.7 pg 26.6-3 3.0 Not Available [facility] ([facility]) [address] [place], [address], 09/10/2015 09:24:51 09/09/19 16 09/10/2015 CBC MCHC 34.8 g/dL 31.5-3 5.7 Not Available [facility] ([facility]) [address] [place], [address], 09/10/2015 09:24:51 09/09/19 16 09/10/2015 CBC RDW 12.9 % 12.3-1 5.4 Not Available [facility] ([facility]) [address] [place], [address], 09/10/2015 09:24:51 09/09/1909/10/2015 CBC platelets 197 x10e3 /uL 150-37 9 Not Available [facility] ([facility]) [address] [facility], [place], [address], 09/10/2015 09:24:51 09/09/19 16 09/10/2015 CBC neutrophils 63 % Not Avai lable [facility] ([facility]) [address] [facility], [place], [address], 09/10/2015 09:24:51 09/09/19 16 09/10/2015 CBC lymphs 30 % Not Available [facility] ([facility]) [address] [facility], [place], [address], 09/10/2015 09:24:51 09/09/19 16 09/10/2015 CBC monocytes 6 % Not Availa ble [facility] ([facility]) [address] [facility], [place], [address], 09/10/2015 09:24:51 09/09/19 16 09/10/2015 CBC eos 1 % Not Available [facility] ([facility]) [address] [facility], [place], [address], 09/10/2015 09:24:51 09/09/19 16 09/10/2015 CBC basos 0 % Not Available [facility] ([facility]) [address] [facility], [place], [address], 09/10/2015 09:24:51 09/09/19 16 09/10/2015 CBC immature cells SOFTWARE PROGRAMMER Not Available [facility] ([facility]) [address] [facility], [place], [address], 09/10/2015 09:24:51 09/09/19 16 09/10/2015 CBC neutrophils (absolute) 4.9 x10e3 /uL 1.4-7. 0 Not Available [facility] ([facility]) [address] [place], [address], 09/10/2015 09:24:51 09/09/19 16 09/10/2015 CBC lymphs (absolute) 2.4 x10e3 /uL 0.7-3. 1 Not Available [facility] ([facility]) [address] [place], [address], 09/10/2015 09:24:51 09/09/19 16 09/10/2015 CBC monocytes(ab solute) 0.5 x10e3 /uL 0.1-0. 9 Not Available [facility] ([facility]) [address], [place], [address], 09/10/2015 09:24:51 09/09/19 16 09/10/2015 CBC eos (absolute) 0.1 x10e3 /uL 0.0-0. 4 Not Available [facility] ([facility]) [address], [place], [address], 09/10/2015 09:24:51 09/09/19 16 09/10/2015 CBC baso (absolute) 0.0 x10e3 /uL 0.0-0. 2 Not Available [facility] ([facility]) [address], [place], [address], 09/10/2015 09:24:51 09/09/19 16 09/10/2015 CBC immature granulocytes 0 % Not Available [facility]) [address] [facility], [place], [address], 09/10/2015 09:24:51 09/09/1909/10/2015 CBC immature grans (abs) 0.0 x10e3 /uL 0.0-0. 1 Not Available [facility] ([facility]) [address] [place], [address], 09/10/2015 09:24:51 09/09/1909/10/2015 CBC NRBC SOFTWARE PROGRAMMER Not Available [facility] ([facility]) [address] [facility], [place], [address], 09/10/2015 09:24:51 09/09/19 16 09/10/2015 CBC hematology comments: SOFTWARE PROGRAMMER Not Available [facility] ([facility]) [address] [place], [address], 09/10/2015 09:24:51 09/09/19 16 09/10/2015 CMP, serum or plasm a glucose, serum 99 mg/dL 65-99 Not Available [facility] ([facility]) [address] [place], [address], 09/10/2015 09:24:52 09/09/1909/10/2015 CMP, serum or plasm a BUN 9 mg/dL 8-27 Not Available [facility] ([facility]) [address] [place], [address], 09/10/2015 09:24:52 09/09/19 16 09/10/2015 CMP, serum or plasm a creatinine, serum 0.73 mg/dL 0.57-1 .00 Not Available [facility] ([facility]) [address] [place], [address], 09/10/2015 09:24:52 09/09/19 16 09/10/2015 CMP, serum or plasm a eGFR if nonafricn AM 87 mL/mi n/1.7 3 >59 Not Available [facility] ([facility]) [address] [place], [address], 09/10/2015 09:24:52 09/09/1909/10/2015 CMP, serum or plasm a eGFR if africn AM 101 mL/mi n/1.7 3 >59 Not Available [facility] ([facility]) [address] [place], [address], 09/10/2015 09:24:52 09/09/1909/10/2015 CMP, serum or plasm a BUN/creatini ne ratio 12 11-26 Not Available [facility] ([facility]) [address] [place], [address], 09/10/2015 09:24:52 09/09/19 16 09/10/2015 CMP, serum or plasm a sodium, serum 141 mmol/ L 134-14 4 Not Available [facility] ([facility]) [address] [place], [address], 09/10/2015 09:24:52 09/09/19 16 09/10/2015 CMP, serum or plasm a potassium, serum 4.2 mmol/ L 3.5-5. 2 Not Available [facility] ([facility]) [address] [place], [address], 09/10/2015 09:24:52 09/09/1909/10/2015 CMP, serum or plasm a chloride, serum 99 mmol/ L 97-108 Not Available [facility] ([facility]) [address] [place], [address], 09/10/2015 09:24:52 09/09/1909/10/2015 CMP, serum or plasm a carbon dioxide, total 27 mmol/ L 18-29 Not Available [facility] ([facility]) [address] [place], [address], 09/10/2015 09:24:52 09/09/1909/10/2015 CMP, serum or plasm a calcium, serum 9.6 mg/dL 8.7-10 .3 Not Available [facility] ([facility]) [address] [place], [address], 09/10/2015 09:24:52 09/09/1909/10/2015 CMP, serum or plasm a protein, total, serum 6.5 g/dL 6.0-8. 5 Not Available [facility] ([facility]) [address] [place] [address], [address], 09/10/2015 09:24:52 09/09/1909/10/2015 CMP, serum or plasm a albumin, serum 4.1 g/dL 3.6-4. 8 Not Available [facility] ([facility]) [address] [place], [address], 09/10/2015 09:24:52 09/09/1909/10/2015 CMP, serum or plasm a globulin, total 2.4 g/dL 1.5-4. 5 Not Available [facility] ([facility]) [address] [place], [address], 09/10/2015 09:24:52 09/09/1909/10/2015 CMP, serum or plasm a A/G ratio 1.7 1.1-2. 5 Not Available [facility] ([facility]) [address] [place], [address], 09/10/2015 09:24:52 09/09/1909/10/2015 CMP, serum or plasm a bilirubin, total 0.3 mg/dL 0.0-1. 2 Not Available [facility] ([facility]) [address] [place], [address], 09/10/2015 09:24:52 09/09/1909/10/2015 CMP, serum or plasm a alkaline phosphatase, S 78 IU/L 39-117 Not Available [facility]) [address] [place], [address], 09/10/2015 09:24:52 09/09/1909/10/2015 CMP, serum or plasm a AST (SGOT) 18 IU/L 0-40 Not Available [facility] ([facility]) [address] [place], [address], 09/10/2015 09:24:52 09/09/1909/10/2015 CMP, serum or plasm a ALT (SGPT) 17 IU/L 0-32 Not Available [facility] ([facility]) [address] [place], [address], 09/10/2015 09:24:52 09/09/19 16 09/10/2015 lipid panel , serum cholesterol, total 253 mg/dL 100-19 9 above high normal Not Available [facility] ([facility]) [address] [place], [address], 09/10/2015 09:24:53 09/09/19 16 09/10/2015 lipid panel , serum triglyceride s 139 mg/dL 0-149 Not Available [facility] ([facility]) [address] [facility], [place], [address], 09/10/2015 09:24:53 09/09/19 16 09/10/2015 lipid panel , serum HDL cholesterol 62 mg/dL >39 ACCOR DING TO ATP-I II GUIDE LINES , HDL-C >59 MG/DL IS CONSI DERED A NEGAT BRICE RISK FACTO R FOR CHD. Not Available [facility] ([facility]) [address] [facility], [place], [address], 09/10/2015 09:24:53 09/09/19 16 09/10/2015 lipid panel , serum VLDL cholesterol dania 28 mg/dL 5-40 Not Available [facility] ([facility]) [address] [place], [address], 09/10/2015 09:24:53 09/09/19 16 09/10/2015 lipid panel , serum LDL cholesterol calc 163 mg/dL 0-99 above high normal Not Available [facility] ([facility]) [address] [place], [address], 09/10/2015 09:24:53 09/09/19 16 09/10/2015 lipid panel , serum comment: SOFTWARE PROGRAMMER Not Available [facility] ([facility]) [address] [place], [address], 09/10/2015 09:24:53 09/09/19 16 09/10/2015 lipid panel , serum LDL/HDL ratio 2.6 ratio _unit s 0.0-3. 2 LDL/H DL RATIO MEN WOMEN 1/2 AVG.R ISK 1.0 1.5 AVG.R ISK 3.6 3.2 2X AVG.R ISK 6.2 5.0 3X AVG.R ISK 8.0 6.1 Not Available [facility] ([facility]) [address] [facility], [place], [address], 09/10/2015 09:24:53 09/09/19 16 09/10/2015 cardi ovasc ular asses sment panel , serum interpretati on NOTE SUPPL EMENT REPOR T IS AVAIL ABLE. Not Available [facility] ([facility]) [address] [facility], [place], [address], 09/10/2015 09:24:54 09/09/19 16 09/10/2015 cardi ovasc ular asses sment panel , serum pdf image . Not Available [facility] ([facility]) [address] [facility], [place], [address], 09/10/2015 09:24:54 Result Notes None recorded. Problems Name Problem SNOMED Code Status Onset Date Resolution Date Notes Provider Name and Address Organization Details Recorded Time Anxiety 94377915 Active SURINDER Mccray, [place] - [facility] 6 15:12:52 Acute bronchitis 78790938 Active Yris Watson [place] null, [place] - [facility] 6 15:12:52 Essential hypertension 62140041 Active Felice Rizo PA-C Attn: Yahir allred,[address] [place], [address], [place] - [facility] 6 15:44:11 Hyperlipidemia 35762018 Active Felice Rizo PA-C Attn: Yahir g,[address] [facility], [place], [place], [address] [place] [address] 2, [place] - [facility] 6 15:44:11 Polyp of colon 22833308 Active Felice Rizo PA-C Attn: Yahir g,[address] [facility], [place], [address], [place] - [facility] 6 15:44:11 Problem Notes None recorded. Procedures Surgical History Date Name Laterality Status Provider Name and Address Organization Details Recorded Time Tonsillectomy completed Cassia Monson MA [place] - [facility] 09/16/2014 15:24:55 Hysterectomy completed Cassia Monson MA [facility] 09/16/2014 15:24:55 Imaging Results None recorded. Procedure Notes None recorded. Medical Equipment None Reported. Allergies No known drug allergies Medications Name Sig Start Date Stop Date Status Note LastModified by Organization Details LastModified Time lisinopril 20 mg-hydrochlo rothiazide 12.5 mg tablet TAKE ONE TABLET DAILY active Not Available Not Available No t Available alprazolam 1 mg tablet TAKE ONE TABLET 3 TIMES DAILY 2015 active Not Available Not Available Not Avai lable lovastatin 40 mg tablet TAKE ONE TABLET DAILY 2015 active Not Available Not Available Not Avai lable tramadol 50 mg tablet TAKE ONE TABLET 3 TIMES DAILY NEEDED FOR PAIN 2015 active Not Available Not Available Not Avai lable ciprofloxaci n 0.3 % eye drops 3 drops to affected eye tid for 7 days 2014 active Not Available Not Available Not Avai lable Cipro 500 mg tablet Take 1 tablet every 12 hours by oral route for 10 days. 2014 active Not Available Not Available Not Avai lable pramipexole 0.125 mg tablet TAKE 2 TABLETS EVERY DAY active Not Available Not Available No t Available codeine 10 mg-guaifenes in 100 mg/5 mL oral liquid TAKE ONE TEASPOONFUL THREE TIMES DAILY NEEDED FOR COUGH 2014 active Not Available Not Available Not Avai lable zolpidem 5 mg tablet TAKE 1 TABLET DAILY AT BEDTIME NEEDED 2015 active Not Available Not Available Not Avai lable azithromycin 500 mg tablet Take 1 tablet every day by oral route for 3 days. 2014 active Not Available Not Available Not Avai lable Vitals Date Recorded Body height Body weight Oxygen saturation Oxygen saturation in Arterial blood by Pulse oximetry Body mass index (BMI) Systolic blood pressure Diastolic blood pressure Provider Name and Address Organization Details Last Updated DateTime 5 157.48 cm 89344.0 25354 g 94 % 94 % 30.1 kg/m2 120 mm[Hg] 80 mm[Hg] Yris Watson, MA [facility] 5 15:04:20 Date Recorded Body height Body weight Body mass index (BMI) Provider Name and Address Organization Details Last Updated DateTime 09/26/2015 157.48 cm 76133.94299 5 g 30.3 kg/m2 Yrisari Watson MA [facility] 09/26/2015 15:18:57 Date Recorded Body height Body mass index (BMI) Body weight Systolic blood pressure Diastolic blood pressure Provider Name and Address Organization Details Last Updated DateTime 09/16/2014 157.48 cm 31.5 kg/m2 07269.93 6209 g 144 mm[Hg] 90 mm[Hg] Cassia Monson MA [facility] 5 15:27:42 Social History Question Answer Notes LastModified by Organizat ion Details LastModified Time Tobacco Smoking Status Current Every Day Smoker Cassia Monson MA null, [facility] 09/16/2014 15:24:56 How Many Years Have You Smoked Tobacco? 40 [email or web address] Information not available 09/16/2014 Sex: Unknown Functional Status None recorded. Mental Status None recorded. Family History Relationship Description Onset Age of this Age Resolved Age Notes LastModified by Organization Details LastModified Time Mother Diabetes mellitus Not available 2015 15:12:52 Medical History Condition Response Anxiety Disorder Y High Blood Pressure Y High Cholesterol Y Headaches Y COPD Y Gynecological HistoryNo gynecological history recorded. Obstetrics History GPAL:G 0 P 0 0 0 0 Past Encounters Encounter ID Performer Location Encounter Start Date Encounter Closed Date Diagnosis/Indication Diagnosis SNOMED-CT Code Diagnosis ICD10 Code Diagnosis Note [id number] MAYANK Stringer [facility] [address] [place] [address] 09/16/2014 15:22:57 09/16/2014 15:50:43 Anxiety 50842579 193628 [facility] [address] [place] [address] 03/21/2015 14:57:15 03/21/2015 15:37:55 Acute bronchitis 46534705 [id number] MAYANK Stringer [address] [place] [address] 09/08/2015 15:10:42 09/08/2015 15:57:21 Essential hypertension 07446619 I10 Anxiety 75924902 F41.9 [id number] Felice Rizo PA-C [facility] [address] [place] [address] 09/26/2015 15:08:46 09/26/2015 15:57:59 Hyperlipidemia 34108673 E78.5 Essential hypertension 86335801 I10 Polyp of colon 89522653 K63.5 Health Concerns Section Related Observation LastModified by Organization Detai ls LastModified Time None Recorded Concern Status LastModified by Organization Details LastModified Time None Recorded Advance Directives Directive None Recorded Payers Encounter Date Sequence Insurance Name Policy Number Policy Cid Covered Member ID Cid Member ID Guarantor Name 09/16/2014 1 *SELF PAY* Jessica Alvesjohn 03/21/2015 1 *SELF PAY* Jessica Alvesjohn 09/08/2015 1 [place] Aracelithiago Alvesjohn [id number] Araceli Adry 09/08/2015 2 [facility] (MEDICARE SUPPLEMENT) Araceli Adry [id number] Araceli Adry 09/26/2015 1 [place] Araceli Adry [id number] Araceli Adry 09/26/2015 2 [facility] (MEDICARE SUPPLEMENT) Araceli Adry [id number] Araceli Adry Notes Date Note Type Note Provider Name and Address Organization Details Recorded Time 09/16/2014 text/html 6 mos check on anxiety. Felice Rizo PA-C Attn: [address] [place], [address], [facility] 09/16/2014 15:45:17 03/21/2015 text/html productive cough 100 degree fever at night. sinus pain Felice Rizo PA-C Attn: [address] [place], [address], [facility] 03/21/2015 15:17:12 09/08/2015 text/html needs labs and meds Felcie Rizo PA-C Attn: [address] [place], [address], [facility] 09/08/2015 15:30:54 09/26/2015 text/html was out of cholesterol meds 1 week prior to these labs. see labs lovastatin 40 mg. needs a GI referral Felice Rizo PA-C Attn: [address] [place], [address], [facility] 09/26/2015 15:47:02 OBGyn Episode No OBEpisode recorded.
--- OUTSIDE RECORDS SUMMARY | 2024-09-12 12:13 | XMS_ITS | CONTINUITY OF CARE DOCUMENT ---
Author Name jacquie siddharthjesu Address Unknown Organization [facility] Address [address] [address] [place] [address] Phone [phone] Care Team Providers Care Newspaper Photojournalist Name Role Phone Naldo Anne MD Unavailable [phone] PATRICIA AVELAR DO Unavailable [phone] PATRICIA AVELAR DO Unavailable [phone] PROBLEMS Condition Status Date Provider Notes Exposure to SARS-associated coronavirus active Naldo Anne MD CHEST PAIN-07/18 NUC FALSE -POS completed - Naldo Anne MD Dyslipidemia active Naldo Anne MD Hypertension active Naldo Anne MD ANXIETY DISORDER active ? Naldo Anne MD Tobacco abuse active Naldo Anne MD Shortness of breath active Naldo Anne MD Pericardial effusion - small 07/2010 active Naldo Anne MD Emphysema active Connor Luis MD COPD active Connor Luis MD ENCOUNTERS Date Type Provider Location Encounter Diag nosis - In-person encounter Office Visit Connor Luis MD [facility] EmphysemaCOPD - In-person encounter Office Visit Naldo Anne MD [facility] CHEST PAIN-07/18 NUC FALSE -POSDyslipidemiaHyperten sionTobacco abuseShortness of breathPericardial effusion - small 07/2010 - In-person encounter Office Visit Naldo Anne MD [facility] - In-person encounter Office Visit Naldo Anne MD [facility] CHEST PAIN-07/18 NUC FALSE -POSDyslipidemiaHyperten sionANXIETY DISORDER VITAL SIGNS Date Observation Value Provider Body Mass Index (Ratio) 30.72 kg/m2 Heydi Luis MD blood pressure, diastolic 80 mm[Hg] [facility] blood pressure, systolic 130 mm[Hg] Zachery ardon [place] oxygen saturation, oximetry 96 % [facility] respiratory rate E&M 16 /min [facility] pulse rate 96 /min [facility] weight E&M 168 [lb_av] [facility] height E&M 62 [in_i] [facility] Body Mass Index (Ratio) 30.72 kg/m2 Nestor Clark blood pressure, resting Yes Rigo tity Taylor oxygen saturation, oximetry 97 % Chastity Taylor pulse rate 79 /min Chastity Taylor respiratory rate E&M 16 /min Chastit y Taylor blood pressure, diastolic 78 mm[Hg] Ch astity Taylor blood pressure, systolic 132 mm[Hg] Isis stity Taylor weight E&M 168 [lb_av] Chastity Taylor height E&M 62 [in_i] Chastity Taylor blood pressure, diastolic, left arm 92 mm [Hg] Taylor [facility] blood pressure, systolic, left arm 158 mm [Hg] Taylor [facility] blood pressure, diastolic, right arm 98 m m[Hg] Taylor [facility] blood pressure, systolic, right arm 146 m m[Hg] Taylor [facility] blood pressure, diastolic 92 mm[Hg] Etelvina mastha [facility] blood pressure, systolic 158 mm[Hg] Mary rain [facility] pulse rate 84 /min [facility] oxygen saturation, oximetry 97 % [facility] respiratory rate E&M 16 /min [facility] weight E&M 153 [lb_av] Taylor [facility] blood pressure, diastolic, left arm 104 m m[Hg] Taylor [facility]iel blood pressure, systolic, left arm 166 mm [Hg] Taylor [facility] blood pressure, diastolic, right arm 100 mm[Hg] Taylor [facility]iel blood pressure, systolic, right arm 175 m m[Hg] Taylor O'Yuniel blood pressure, diastolic 100 mm[Hg] [facility] O'Yuniel blood pressure, systolic 175 mm[Hg] [facility] O[facility]uniel pulse rate 100 /min [facility]uniel oxygen saturation, oximetry 97 % [facility] O'Yuniel respiratory rate E&M 18 /min Taylor O'[facility]un[facility] weight E&M 134 [lb_av] Taylor [facility] ALLERGIES No Known Drug Allergies HISTORY OF MEDICATION USE Medication Status Instructions Dates Provider Indications Com ments GABAPENTIN 300 MG ORAL CAPSULE active one tab daily Tiffany Vazquez AMBIEN 5 MG ORAL TABLET active one tab daily Tiffany Vazquez LISINOPRIL-HYDROCHLORO THIAZIDE 20-12.5 MG ORAL TABLET active one tab daily ShoshanaVarVee Taylor ASPIRIN ADULT LOW DOSE 81 MG ORAL TABLET DELAYED RELEASE active One Tab By Mouth Daily Tiffany Vazquez FISH OIL CAPSULE active ONE TAB. DAILY Tiffany Vazquez HYDROCHLOROTHIAZIDE 25 MG ORAL TABLET completed 1 tab daily - Isisstmatt Vazquez TRAZODONE HCL 50 MG ORAL TABLET completed 1 tab by mouth 3 times daily - Tiffany Vazquez ALPRAZOLAM 1 MG ORAL TABLET active 1 tab by mouth 3 taimes daily [facility] CRESTOR 5 MG ORAL TABLET active ONE TAB. DAILY Tiffany Vazquez LISINOPRIL 40 MG ORAL TABLET completed 1 tab by mouth daily - Tiffany Vazquez SOCIAL HISTORY Date Observation Value Provider social history E&M Marital Statu s: Farida cobian with family/friends E thnicity: Smoking History: [place] currently smokes every day. P attricia has been counseled to quit. Connor Luis MD social history reviewed E&M revi ewed - no changes required Connor Luis MD number of grandchildren Connor Luis MD [facility] alcohol use, average drinks per day 1-3 drinks per day [facility] smoking/tobacco cess ation, patient education and counseling yes [facility] caffeine use, averag e drinks per day 1+ [facility] number of years as a smoker 40-50 [facility] smoking history, tot al pack/day 1 [facility] cigarette use yes [facility] smoking status Current every day smoker Tish darrinrobby Gr social history reviewed E&M revi ewed - no changes required Bassem Clark social history E&M Marital Statu s: Farida cobian with family/friends E thnicity: Smoking History: [place] currently smokes every day. P attricia has been counseled to quit. Bassem Clark smoking/tobacco cess ation, patient education and counseling yes Bassem Clark caffeine use, averag e drinks per day 1+ Naldo Anne MD smoking history, tot al pack/day 1 Naldo Anne MD number of years as a smoker 40-50 Bassem Clark cigarette use yes Tiffany Vazquez smoking status Current every day smoker Hong Vazquez social history reviewed E&M reviewed Avery Epstein RN smoking/tobacco cess ation, patient education and counseling yes Avery Epstein RN social history E&M Marital Statu s: Farida cobian with family/friends E thnicity: Avery Epstein RN social history reviewed E&M reviewed Avery Epstein RN caffeine use, averag e drinks per day yes [employer] alcohol use, average drinks per day 1-3 drinks per day [employer] smoking status Smoker [employer] MENTAL STATUS Date Observation Value Provider assessment of judgme nt and insight E&M Alert and oriented to time, place and person. Mood and affect are normal. Avery Epstein RN assessment of judgme nt and insight E&M Alert and oriented to time, place and person. Mood and affect are normal. Avery Epstein RN FAMILY HISTORY Family Member Condition Mother Family History of Di abetes: INSURANCE PROVIDERS Payer name Policy type / Coverage type [place] red green party ID [facility] Accept Software [id number] [place] Medicare [id number] ADVANCE DIRECTIVES Name Date DISCUSSED - NO DECISION MADE TREATMENT PLAN Date Name Performer Cardiology: t rivial pericardial effusion per echo Connor Luis MD Cardiology: c essation strongly enouraged. COPD + emphysema per PFTs and low-dose CT. Connor Luis MD Cardiology: B P today: 130/80 P rior BP: 132/78 (08/13/2018) Her updated medication list for this problem includes: Lisinopril-hydrochlorothiazide 20-12.5 Mg Oral Tablet (Lisinopril-hydrochlorothiazide) ..... One tab daily Aspirin Adult Low Dose 81 Mg Oral Tablet Delayed Release (Aspirin) ..... One tab by mouth daily Connor Luis MD Cardiology: H er updated medication list for this problem includes: Lisinopril-hydrochlorothiazide 20-12.5 Mg Oral Tablet (Lisinopril-hydrochlorothiazide) ..... One tab daily Aspirin Adult Low Dose 81 Mg Oral Tablet Delayed Release (Aspirin) ..... One tab by mouth daily Connor Luis MD Cardiology: P FTs revealed M oderately severe Obstructive Airways Disease R estriction -Probable S evere Diffusion Defect Lod-dose CT revealed: i mpression COPD. no disscrete nodules however there is a biapical pleural and parenchymal scarring and a groundlgass infiltrate and in [facility]. f /u study in 6 months was recommneded she does have a hx of exposure to asbestos. f/u CT lungs in 6 months. Connor Luis MD Cardiology:Her [facility] ed medication list for this problem includes: Crestor 5 Mg Oral Tablet (Rosuvastatin calcium) ..... One tab. daily Bassem Clark Cardiology:BP today: 132/78 P rior BP: 158/92 (07/19/2010) Her updated medication list for this problem includes: Lisinopril-hydrochlorothiazide 20-12.5 Mg Oral Tablet (Lisinopril-hydrochlorothiazide) ..... One tab daily Bassem Clark Cardiology:Encourage d to quit. The patient is between 55-77 years old and has smoked at least 30 pack years. The patient is either a current smoker or has quit within the past 15 years. T he patient is recommended to have low dose CT scan for lung cancer screening. Has been counseled regarding the importance of tobacco cessation and abstinence. Shared decision making during this office visit included discussion of the benefits and harms of screening, possible future recommendations of follow-up diagnostic testing, and total amount of radiation exposure. The patient was recommended to have annual low dose CT scan for lung cancer screening and is willing to undergo diagnosis and treatment. Bassem Clark Cardiology:Orders: E KG (CPT-52632) C omplete Echo (CPT-86727) S tress Exercise Cardiolite (CPT-79725) F VC - 71923 (73157) F RC - 10690 (84656) D LCO - 41446 (11996) Bassem Clark Date Name Covid Antibody IgA ( LC) Covid Antibody IgM ( LC) Covid Antibody Igg CT Chest without con trast Low Dose Lung CT DLCO - 31912 FRC - 67013 FVC - 23675 Stress Exercise Card iolite Complete Echo Complete Echo Stress Test - Nuclea r Complete Echo HISTORY OF PROCEDURES Procedure Date Procedure Name Provider Procedure Notes S tatus Stress EKG Thanh Friedman MD completed Cardiolite, 2 units Thanh Friedman MD completed SPECT Images Thanh Friedman MD completed FVC / MVV with bronchodilator - 19853 Naldo Anne MD completed BLOOD COUNT HEMOGLOBIN Naldo Anne MD completed FRC - 64664 Naldo Anne MD completed SpO2 w/o 6min walk/titration Naldo Anne MD completed DLCO - 40019 Naldo Anne MD complete d Counseling LDCT Naldo Anne MD compl eted EKG Naldo Anne MD completed EKG Naldo Anne MD completed
--- OUTSIDE RECORDS SUMMARY | 2024-09-12 12:13 | XMS_ITS | Clinical Summary ---
Author Organization [facility] Address [address] [place] [address] Care Team Providers Care Ob/Gyn Nurse Name Role Phone Jarett Black MD Primary Care Provider [phone] Allergies No known active allergies Medications ALPRAZolam (XANAX) 1 mg tablet alprazolam 1 mg tablet TAKE ONE TABLET 3 TIMES DAILY 0 Active lisinopril-hydroCH LOROthiazide (ZESTORETIC) 20-12.5 mg per tablet daily 9 Active gabapentin (NEURONTIN) 300 mg capsule Take 1 capsule (300 mg total) by mouth 2 (two) times a day 2 Active rosuvastatin (CRESTOR) 5 mg tablet Take by mouth daily 9 Active alendronate (FOSAMAX) 70 mg tablet Take 1 tablet (70 mg total) by mouth every 7 days 2 Active traZODone (DESYREL) 150 mg tablet Take 1 tablet (150 mg total) by mouth nightly 3 Active calcium carbonate (CALCIUM 500 ORAL) Take by mouth daily Active cholecalciferol (Vitamin D3) 2000 unit capsule 1 capsule (2,000 Units total) daily Active ascorbic acid (vitamin C) 1,000 mg tablet Take 1 tablet (1,000 mg total) by mouth daily Active HYDROcodone-acetam inophen (NORCO) 5-325 mg per tabletIndications: Pain Take 1 tablet by mouth every 6 (six) hours as needed for pain 12 tablet 4 Active ondansetron ODT (ZOFRAN-ODT) 8 mg disintegrating tabletIndications: Prevention of Post-Operative Nausea and Vomiting Take 1 tablet (8 mg total) by mouth every 8 (eight) hours as needed for nausea or vomiting 12 tablet 1 4 Active varenicline tartrate (CHANTIX DANILO) 0.5 mg (11)- 1 mg (42) tablet 4 Active albuterol HFA (PROVENTIL HFA,VENTOLIN HFA,PROAIR HFA) 90 mcg/actuation inhaler 4 Active sertraline (ZOLOFT) 100 mg tablet 4 Active Active Problems Problem Noted Date Diagnosed Date SCC (squamous cell carcinoma), leg, left 023 Herpes labialis 01/29/2023 Lesion of skin of face 01/29/2023 Osteopenia 11/18/2022 Overweight 09/11/2022 Chronic insomnia 08/01/2022 Depressive disorder 08/01/2022 Osteoporosis 08/01/2022 Restless legs 08/01/2022 Smoker 08/01/2022 Acute bronchitis 11/30/2021 Anxiety disorder 11/30/2021 Chest pain, unspecified 11/30/2021 Hyperlipidemia 11/30/2021 Polyp of colon 11/30/2021 Chronic obstructive pulmonary disease 10/13/2018 Shortness of breath 08/13/2018 Tobacco dependence syndrome 08/13/2018 Pericardial effusion 07/17/2010 Dyslipidemia 04/24/2010 Hypertension 04/24/2010 Immunizations Immunization Administration Dates Next Due Hep A, Adult 11/21/2016 Pneumococcal Conjugate PCV 13 11/18/2016 Surgical History Surgery Date Site/Laterality Comments HYSTERECTOMY CHOLECYSTECTOMY Medical History Medical History Date Comments Dyslipidemia Hyperlipidemia HTN (hypertension) Anxiety COPD (chronic obstructive pulmonary disease) (HC C) PONV (postoperative nausea and vomiting) Cancer (HCC) squamous cell ca ncer Family History Medical History Relation Name Comments Throat cancer Father Diabetes Mother Relation Name Status Comments Father Mother Social History Tobacco Use Types Packs/Day Years Used Date Smoking Tobacco: Every Day Cigarettes Smokeless Tobacco: Former Chew Tobacco Cessation:Ready to Q uit: Not Asked; Counseling Given: Not Answered AUDIT-C Answer Date Recorded Q1: How often do you have a drink containing alcohol? Never 08/08/2023 Q2: How many drinks containi ng alcohol do you have on a typical day when you are drinking? Patient does not drink Frequency of Binge Drinking Not on file 07/2023 Personal Safety Answer Date Recorded Have you ever been in or are you currently in a harmful physical or emotional relationship or is someone making you feel afraid or unsafe? Denies 08/08/2023 Comments Unknown Sex and Gender Information Value Date Recorded Sex Assigned at Not on file Legal Sex Female 7:58 AM [employer] Gender Identity Not on file Sexual Orientation Not on file Obstetrics History Last Filed Vital Signs Vital Sign Reading Time Taken Comments Blood Pressure 138/68 08/08/2023 2:19 PM [facility] Pulse 68 08/08/2023 2:19 PM [facility] Temperature 36.1 C (96.9 F) 08/08/2023 2:19 PM [facility] Respiratory Rate 18 08/08/2023 2:19 PM [facility] Oxygen Saturation 95% 08/08/2023 2:19 PM [facility] Inhaled Oxygen Concentration - - Weight 67.5 kg (148 lb 13 oz) 08/08/2023 10:42 A M [facility] [employer] Height 157.5 cm (5' 2 ) 08/08/2023 10:42 AM [facility] Body Mass Index 27.22 08/08/2023 10:42 AM [facility] Plan of Treatment Health Maintenance Due Date Last Done Comments Colon Cancer Screening-Colonoscopy 1950 Depression Screening 1950 Hepatitis C Screening 1950 Osteoporosis Screening-Bone Density Scan 1950 DTaP/Tdap/Td Vaccine (1 - Tdap) 1961 Hepatitis B Screening 1968 Zoster Vaccine (1 of 2) 2000 Well Visit 65+ 09/23/2015 Pneumococcal vaccine 65+ (2 of 2 - PPSV23) 01/13/2017 11/18/2016 Breast Cancer Screening-Mammogram 11/16/2023 023 Influenza Vaccine (#1) 2024 Fall Risk Assessment 06/13/2024 06/13/2023 Insurance MEDICARE COMMERCIAL GENERIC MEDICARE COMMERCIAL GENERIC MEDICARE [place] [address] Care Teams Ob/Gyn Nurse Relationship Specialty Start Date End Date Jarett Black MD Isaias [facility] [place] [address] PCP - General Family Medicine 03/22/23
--- OUTSIDE RECORDS SUMMARY | 2024-09-12 12:13 | XMS_ITS | Continuity of Care Document ---
Author Organization [facility] Address [address] [place] [address] [place] [address] Phone Care Team Providers Care Cadastral Engineer Name Role Phone Johnny Glynn MD Unavailable Unavailable Allergies, Adverse Reactions, Alerts Substance Reaction Status Criticality No Known Allergies Active No Inform ation Medications Medication Instructions Dosage Effective Dates (start - stop) Status Comments Artificial Tears (polyvinyl alcohol) 1.4 % eye drops instill 1 drop by ophthalmic route 4 times every day 1 drop - Active ZOLPIDEM TARTRATE (unknown strength) take 2 tablet by oral route every day at bedtime Not Available - Active LISINOPRIL (unknown strength) take 1 tablet by oral route every day Not Available - Active CRESTOR (unknown strength) take 2 tablet by oral route every day Not Available - Active ALPRAZOLAM (unknown strength) take 1 tablet by oral route 3 times every day Not Available - Active Vigamox 0.5 % eye drops Instill 1 drop in the operated eye QID x 1 week, and then TID until bottle runs out - No Longer Active ok to substitute Polytrim qty 1 QID x7days if Vigamox too expensive prednisolone acetate 1 % eye drops,suspension instill 1 drop in the operated eye QID x 1 week, TIDx 1 week, BID x 1 week then Qday x 1 week then stop - No Longer Active diclofenac 0.1 % eye drops Instill 1 drop in the operated eye TID x 4 weeks - No Longer Active Procedures Procedure Date Eye Exam & Treatment No Charge Refraction Post-op Follow-up Visit Post-op Follow-up Visit Post-op Follow-up Visit Remove Cataract, Post Op Care 7 Remove Cataract, Insert Lens,Comanaged N IOLMaster-Professional No Charge Refraction Post-op Follow-up Visit No Charge Refraction Post-op Follow-up Visit No Charge GDX Retina Post-op Follow-up Visit Remove Cataract, Post Op Care 7 Remove Cataract, Insert Lens,Comanaged O Astigmatism Correcting Toric IOL 2016 IOLMaster-Professional No Charge Refraction Office/outpatient Visit, Est No Charge IOL Master No Charge Refraction No Charge Orbscan Office/outpatient Visit, Est IOLMaster-Technical No Charge Refraction Office/outpatient Visit, New Advance Directives Directive Yes / No Effective Date File Name No Information Encounters Encounter Description Practice Location Reason(s) For Visit Diagnoses Date Provider Providers Copied on Encounter [facility], [address], [place], [place], [id number], [place] tel:[phone] SEC Kb MCKEON Professional Complete Exam (chief complaint) Superficial punctate keratitis of both eyesBilatera l artificial lens implantOther secondary cataract, bilateral 8 Renard Turner. [address] [facility], [facility] [address], [place], [place], [address], [place]. tel:[phone] Referring Provider: Johnny Bryan, [address] [facility] [address], [place], [address] . tel:[phone] [facility], [address], [place], [place], [address], [place] tel:[phone] SEC [place] Professional Post-Op (chief complaint) Encntr for f/u exam aft trtmt for cond oth than malig neoplm Dec-2 7 Renard Turner. [address] [facility], [address], [place], [place], [address], [place]. tel:[phone] Referring Provider: Johnny Bryan, [address] [facility] [address], [place], [address] . tel:[phone] [facility], [address], [place], [place], [address], [place] tel:[phone] [place] Professional Post-Op (chief complaint) Encntr for f/u exam aft trtmt for cond oth than malig neoplm Jun-0 7 Mary Rosales. [address] [facility], [place], [address], [place]. tel:[phone] Referring Provider: Johnny Bryan, [address] [facility] [address], [place], [address] . tel:[phone] [facility], [address], [place], [place], [address], [place] tel:[phone] SEC Kb LINDA Professional 2 day PC IOL po (chief complaint) Encntr for f/u exam aft trtmt for cond oth than malig neoplm Jun-0 7 Renard Turner. [address] [facility], [address], [place], [place], [address], [place]. tel:[phone] Referring Provider: Johnny Bryan, [address] [facility] [address], [place], [address] . tel:[phone] [facility], [address], [place], [place], [address], [place] tel:[phone] [facility] No Information Renard Turner. [address] [facility], [address] [place], [address], [place]. tel:[phone] Referring Provider: Johnny Bryan, [address] [facility] [place], [address] . tel:[phone] [facility], [address], [place], [place], [address], [place] tel:[phone] SEC [facility] No Information Renard Turner. [address] [facility], [address] [place], [address], [place]. tel:[phone] Referring Provider: Johnny Bryan, [address] [facility] [place], [address] . tel:[phone] [facility], [address], [place], [place], [address], [place] tel:[phone] SEC Kb MCKEON Professional No Information Renard Turner. [address] [facility], [address] [place], [address], . tel:[phone] [facility], [address], [place], [place], [address], [place] tel:[phone] [place] Professional 2 wk Toric CE PO (chief complaint) Post-op cataract surgery left eye Renard Turner. [address] [facility], [address] [place], [address], [place]. tel:[phone] Referring Provider: Johnny Bryan, [address] [facility] [place], [address] . tel:[phone] [facility], [address], [place], [place], [address], [place] tel:[phone] SEC [place]b MCKEON Professional Post-Op (chief complaint) Post-op cataract surgery left eye Oct-3 1- 7 Renard Turner. [address] [place] [address] [place], [address], . tel:[phone] Referring Provider: Johnny Bryan, [address] [facility] [address], [place], [address] . tel:[phone] [facility], [address], [place], [place], [address], tel:[phone] SEC Kb MCKEON Professional 1 wk Toric CE PO (chief complaint) Post-op cataract surgery left eye Oct-3 0-201 7 Mary Rosales. [address] [place] [address], [address], . tel:[phone] Referring Provider: Johnny Bryan, [address] [facility] [address], [place], [address] . tel:[phone] [facility], [address], [place], [place], [address], tel:[phone] [place] Professional 1 day PO PCIOL TORIC (chief complaint) No Information Oct-1 9 7 Klaus Orozco. [address] [facility], [address], [place], [place], [address], . tel:[phone] Referring Provider: Johnny Bryan, [address] [place], [address] . tel:[phone] [facility], [address], [place], [place], [address], [phone] [place] [address] No Information Oct-1 8 7 Renard Turner. [address] [place] [address] [place], [address], . tel:[phone] Referring Provider: Johnny Bryan, [address], [place], [address] . tel:[phone] [facility], [address] [place] [address] [address], [place], [place], [address], tel:[phone] SEC [place] [facility] No Information Oct-1 7 Renard Turnre. [address], [place], [place], [address], [place]. tel:[phone] Referring Provider: Johnny Bryan, [address] [facility] [address], [place], [address] . tel:[phone] [place] [facility] [address] [place] [address] [address], [place], [place], [address], tel:[phone] SEC [place] Professional Cataract check/repeat measurements (chief complaint) No Information Oct-0 3 7 Renard Turner. [address], [address] [place], [address], [place]. tel:[phone] Referring Provider: Johnny Bryan, [address], [place], [address] . tel:[phone] [place]pa [place], [facility], [address] [place] [address] [address], [place], [place], [address], [place] tel:[phone] [place] Professional Follow up visit (chief complaint) No Information Sep- 7 Renard Turner. [address], [place], [address], . tel:[phone] Referring Provider: Johnny Bryan, [address], [place], [address] . tel:[phone] Office/outpa tient Visit, [facility], [address] [place] [address] [address], [place], [place], [address], [place] tel:[phone] SEC Kb LIN[place] Professional Cataract evaluation (chief complaint) No Information 7 Renard Loveson. [address], [address], [place], [place], [address], [place]. tel:[phone] Family History Family Member Type Diagnosis Age At Onset No Information Payers Payer name Insurance type Covered republican ID Authoriza tiestela(s) Medicare [facility] [id number] [facility] Life Insurance [id number] Social History Type Description Quantity Date Captured Comments Alcohol Use Details No Caffeine Use Details Tobacco Use Status Current non-smoker 18 Smoking Status Never smoker Non-Smoking Tobacco Use Details : No Details Available : No Details Available Sex Female Chief Complaint And Reason For Visit From encounter dated '01/27/2018 14:30'. Complete Exam (chief complaint). Description: The 67 year old female presents for evaluation of Complete Exam in the right eye and left eye. 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 Pt reports she sees well, DV and NV, OU. Pt reports she uses AFT QHS OU. Pt reports she has crustiness in the cornersof OU and OU is irritated, x couple mos. Pt reports she feels pressure behind OU, worse in the evenings, and this was happening at last appt too. Reason For Referral Reason For Referral No Information Plan Of Treatment Date Type Action Status Goal Tobacco cessation counseling completed History Of Present Illness Encounter Date Complaint History Of Prese nt Illness Complete Exam The 67 year old female presents for evaluation of Complete Exam in the right eye and left eye. 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 Pt reports she sees well, DV and NV, OU. Pt reports she uses AFT QHS OU. Pt reports she has crustiness in the corners of OU and OU is irritated, x couple mos. Pt reports she feels pressure behind OU, worse in the evenings, and this was happening at last appt too. Post-Op The 66 year old female presents for a 1 month post op CE OD. Patient is pseudo OS with toric IOL. Patient c/o she feels pressure behind ou and states she has been on an antibiotic for 10 days. Patient states she is finished with drops. Post-Op The 66 year old female presents for a 1 week post op CE OD. Patient to begin Pred qid, Diclofenac tid and vigamoc qid OD. Patient states OD is doing good. 2 day PC IOL po The 66 year old female presents for 2 day PC IOL po in the right eye. All medications reviewed and PO instructions understood. Pt using Vig qid, PF1% qid, and Diclo tid. Pt was sick on her 1 day PO yesterday. Pt was vomiting all day, but denies pain or discomfort in her eye. Pt is feeling better today. Pt used all her gtts yesterday, but has not used them today. She thought it would skew the results of our tests today. Pt states vision has improved. 2 wk Toric CE PO The 66 year old female presents for 2 wk Toric CE PO in the left eye. Pt reports she is using Pred BID OS, Diclo BID OS, and Vigamox BID OS. Pt reports VA is better since CE, OS. Pt reports she still has a hard time driving at night due to glare from oncoming headlights, OD, x few mos. Pt also reports hard time reading small print, OD, x few mos, even when she is wearing her gls. Pt reports no pain, irritation or discomfort today, OU. Post-Op The 66 year old female presents for 13 day post op CE OS with toric IOL. Patient saw Dr. Hernandez yesterday and thought patient should be seeing better. Patient is using Pred, Vigamox and Diclofenac OS as directed. Patient states OS is doing ok just vision OS seems a little blurry at distance. 1 wk Toric CE PO The 66 year old female presents for 1 wk Toric CE PO in the left eye. Pt reports she is using Pred QID OS, Vigamox QID OS, and Diclo TID OS. Pt reports no pain, irritation or discomfort today, OU. Pt reports everything is much brighter, OS, since CE, but she thinks things are just a tad blurry, DV and NV. Pt reports it may be her OD throwing her off, making her think OS is blurry 1 day PO PCIOL TORIC The 66 year old female presents for 1 day PO PCIOL TORIC in the left eye. Pt using Pred and Vigamox QID OS and Diclo TID. Pt states OS feels like something is in it. States no pain or discomfort. VA is still blurred from dilation Cataract check/repeat measuremen ts The 66 year old female presents for Cataract check/repeat measurements in the right eye and left eye. Hx of CAT OU, ELSA OU, and PVD OD. Pt reports she has been using AFT BID and not very often TID, OU. Pt reports she hasn't noticed any difference in OU, since last visit. Follow up visit The 66 year old female presents for a 6 month cataract check ou. Patient c/o vision is horrible ou. Patient c/o halos around lights at night. Patient c/o hard to read small print. Cataract evaluation The 65 year old female presents for Cataract evaluation in the right eye and left eye. Pt reports the eye dr told her she had Cataracts 1 year ago. Pt denies any other eye disease, injury, or Sx. Pt reports no pain, irritation, or discomfort OU. Pt reports she doesn't use any gtts. Pt reports she has had blurry VA, OU, x several months and it is gradually getting worse. Pt reports it is worse at nighttime and with glare from oncoming headlights, OU. Functional Status Date Functional Assessmen t No Information Instructions Date Instruction Additional Infor ayah Impression/Plan Educational material given Relat ed to Bilateral artificial lens implant Follow up - Return i n 6 months for complete exam, sooner if problems Impression/Plan - 1 Month Post-op s/p CE/PCIOL OD- Patient healed well OU- Vision and IOP stable- Post-op drops completed at this time- Discussed bifocals vs. OTC readers and their benefits to improve vision - The patient is currently happy with OTC readers- Continue ATs PRN for irritation- Educated on PCO, signs, symptoms, and treatment option in future if needed- Return in 6 months for complete exam, sooner if problems Encntr for f/u exam aft trtmt for cond oth than malig neoplm - Post op instructions reviewed and understood by patient Related to Encntr for f/u exam aft trtmt for cond oth than malig neoplm as scheduled Related to Encnt r for f/u exam aft trtmt for cond oth than malig neoplm Follow up - as scheduled Related to Encntr for f/u exam aft trtmt for cond oth than malig neoplm Impression/Plan - On e week post-op s/p CE/PCIOL OD- IOL in good position; healing well; IOP well controlled. - Activities restrictions reviewed. - Medication instillation and post op instructions reviewed. - Patient will return in 2 weeks or sooner with problems. Related to Encntr for f/u exam aft trtmt for cond oth than malig neoplm Return to clinic as scheduled or sooner with problems. Related to Encntr for f/u exam aft trtmt for cond oth than malig neoplm Follow up - Return t o clinic as scheduled or sooner with problems. Related to Encntr for f/u exam aft trtmt for cond oth than malig neoplm Impression/Plan - 2 Day Post-Op s/p phaco and PCIOL OD- PCIOL in good position.- Patient is healing well.- Vision and IOP stable.- Patient noted nausea and vomiting yesterday, feeling better today.- Discussed continued improvement in vision as eye continues to heal.- Medication instillation, shield use and restrictions reviewed with patient.- Return to clinic as scheduled or sooner with problems. Related to Encntr for f/u exam aft trtmt for cond oth than malig neoplm Encntr for f/u exam aft trtmt for cond oth than malig neoplm - Post op instructions reviewed and understood by patient Related to Encntr for f/u exam aft trtmt for cond oth than malig neoplm Encntr for f/u exam aft trtmt for cond oth than malig neoplm - Medication use reviewed Related to Encntr for f/u exam aft trtmt for cond oth than malig neoplm Continue with CE OD on 06/05 as scheduled, RTC sooner if any problems Related to Post-op cataract surgery left eye Follow up - Continue with CE OD on 06/05 as scheduled, RTC sooner if any problems Related to Post-op cataract surgery left eye Post-op cataract valerie keo left eye - Medication use reviewed Related to Post-op cataract surgery left eye Post-op cataract valerie keo left eye - Post op instructions reviewed and understood by patient Related to Post-op cataract surgery left eye Impression/Plan - 2 Week PO CE Phaco With Toric PCIOL OS- Toric IOL in good position, patient healing well - Vision and IOP stable today- Mild myopic correction present- Medication instillation and post-op instructions reviewed - Continue with CE OD on 06/05 as scheduled Related to Post-op cataract surgery left eye Impression/Plan - 2 week PO s/p Phaco with Toric IOL OS:- Toric IOL in good position; healing well- Vision improved today compared to measured vision yesterday- MRx today shows no residual astigmatism; mild myopic outcome at -0.50.- re-assured patient vision may continue to improve as eye continues to heal- OCT MAC performed yesterday was normal without CME- Medication instillation and post op instructions reviewed- Patient will return as scheduled or sooner with problems Follow up - as scheduled Impression/Plan - On e week post-op s/p CE/PCIOL OS- Toric IOL in good position- Healing well- IOP well controlled- Activities restrictions reviewed. Medication instillation and post op instructions reviewed - OCT Mac WNL - Discussed that I would expect her vision to be a little better than what it is today- Instructed patient to follow up with Dr Glynn within 1 week Follow up - Return w zacharyin 1 week with Johnny Glynn M.D. for post op exam. Post-op cataract valerie keo left eye - Post op instructions reviewed and understood by patient Related to Post-op cataract surgery left eye Impression/Plan - Po st-op instructions given. Instructed to continue Vigamox and Prednisolone qid and Diclofenac tid in left eye.Return in 1 week. Related to Post-op cataract surgery left eye Post-op cataract valerie keo left eye - Medication use reviewed Related to Post-op cataract surgery left eye Impression/Plan - Ca taracts OU:- Discussed all R/B/A pertaining to cataract surgery at last visit and answered additional questions today- Lifestyle lens options discussed.- The possibility that patient may still need to wear glasses to correct astigmatism and/or for reading vision following surgery reviewed in great detail and is understood by patient.- Patient elects to proceed with Toric IOL OS for distance first and then Standard IOL OD for distance. Age-related nuclear cataract of both eyes - Educational material given Related to Age-related nuclear cataract of both eyes Follow up - Patient will be returning in 2 weeks for repeat testing for accuracy due to dryness Impression/Plan - Ca taract OU:- Cataracts account for patient's visual complaints.- Discussed all R/B/A pertaining to cataract surgery.- The procedure and recovery from cataract extraction were discussed.- Recommend phacoemulsification with intraocular lens implant.- Lifestyle lens options discussed.- The possibility that patient may still need to wear glasses to correct astigmatism and/or for reading vision following surgery reviewed in great detail and is understood by patient.- Patient elects to proceed with,Toric IOL OS for distance first and then Standard IOL OD for distance.- Start AT's 3-4 times per day.- Follow up in 2 weeks for repeat testing due to ELSA and interest in Toric IOL Impression/Plan - Ca taract OU:- Cataracts are affecting the vision and causing trouble with glare. - Best corrected vision meets the legal requirements to drive without restrictions.- Cataracts currently do not meet insurance qualifications for CE.- Recommend patient return in 6 months or sooner with problems. Follow up - Return t o clinic in 6 months for cataract check (measurements if vision has changed) Assessments Type Assessment Date assessment Superficial punctate keratitis o f both eyes assessment Bilateral artificial lens implan t assessment Other secondary cataract, bilate ral Patient Care Teams Name Effective Dates (start - stop) Status Members No Information
--- OUTSIDE RECORDS SUMMARY | 2024-09-12 12:13 | XMS_ITS | Referral Summary ---
Author Organization [facility] Address [address] [place] [address] Care Team Providers Care Workplace Trainer And Assessor Name Role Phone Jarett Black MD Primary Care Provider [phone] Allergies No known active allergies Medications ALPRAZolam [...] Adult 11/21/2016 Pneumococcal Conjugate PCV 13 11/18/2016 Social History Tobacco Use Types Packs/Day Years [...] on file Legal Sex Female 7:58 AM [employer] Gender Identity Not on file Sexual Orientation Not on file Last Filed Vital Signs Vital Sign Reading Time Taken Comments Blood Pressure 138/68 08/08/2023 2:19 PM [employer]EL[employer] Pulse 68 08/08/2023 2:19 PM [employer]EL[employer] Temperature 36.1 C (96.9 F) 08/08/2023 2:19 PM [employer]EL[employer] Respiratory Rate 18 08/08/2023 2:19 PM [employer]EL[employer] Oxygen Saturation 95% 08/08/2023 2:19 PM [employer]EL[employer] Inhaled Oxygen Concentration - - Weight 67.5 kg (148 lb 13 oz) 08/08/2023 10:42 A M [employer]EL[employer] Height 157.5 cm (5' 2 ) 08/08/2023 10:42 AM [employer]EL[employer] Body Mass Index 27.22 08/08/2023 10:42 AM [employer]ELOPER Plan of Treatment Not on file Insurance MEDICARE COMMERCIAL GENERIC MEDICARE COMMERCIAL GENERIC MEDICARE SOLUTIONS MEDICARE SOLUTIONS [facility] Address: [facility] [address] [place] [address] Care Teams Workplace Trainer And Assessor Relationship Specialty Start Date End Date Jarett Black MD [address] [place] [address] PCP - General Family Medicine 03/22/23
[2024-09-12 12:16] VITALS: BP 153/78; PULSE 103; RESP 20; TEMP 36.8; O2SAT 93
--- NOTE | 2024-09-12 12:22 | ECG_ITS ---
Test Date: 2024-09-12 12:38:48 Measurements Intervals [place] Rate: 102 P: 79 SD: 152 QRS: 88 QRSD: 74 T: 91 QT: 299 QTc: 391 Interpretive Statements SINUS TACHYCARDIA WITH OCCASIONAL SUPRAVENTRICULAR PREMATURE COMPLEXES NONSPECIFIC ST & T-WAVE ABNORMALITY ABNORMAL RHYTHM ECG No previous ECG available for comparison Electronically Signed On 09-12-2024 16:02:56 TELEPHONE SURVEYOR by Jose Booth M.D.
[2024-09-12 12:56] LABS: Basophils Percent Auto 0.4 % (0.2-1.2); Hematocrit 42.5 % (37.0-47.0); Hemoglobin 14.7 g/dL (12.0-15.0); Immature Granulocyte Absolute 0.02 K/mm3 (0.00-0.031); Immature Granulocyte Percent A 0.2 % (0-0.5); Immature Platelet Fraction Pct 3.5 % (0.9-11.2); Lymphocytes Absolute Auto 0.65 K/mm3 (0.9-3.2); Lymphocytes Percent Auto 8.1 % (18.3-44.2); Mean Corpuscular HGB Conc 34.6 g/dl (32-36); Mean Corpuscular Hemoglobin 31.6 pg (26-34); Mean Corpuscular Volume 91.4 fl (80-100); Mean Platelet Volume 9.7 fl (7.4-10.4); Monocytes Absolute Auto 0.4 K/mm3 (0.1-0.6); Monocytes Percent Auto 4.3 % (2.6-8.5); Platelet Count Result 139 k/mm3 (150-375); Red Blood Count 4.65 M/mm3 (4.2-5.4); Red Cell Distribution Width 12.4 % (11.5-14.5); White Blood Count 8.1 K/mm3 (4.5-10.0)
[2024-09-12 13:03] LABS: Alanine Aminotransferase 31 U/L (6-35); Albumin Level 4.5 g/dL (3.5-5.1); Alkaline Phosphatase 69 U/L (38-126); Anion Gap 10 mmol/L (4-12); Aspartate Amino Transferase 45 U/L (14-36); Bilirubin,Total 0.4 mg/dL (0.2-1.3); Blood Urea Nitrogen 7 mg/dL (7-17); Calcium 8.6 mg/dL (8.4-10.2); Carbon Dioxide 31 mmol/L (22-30); Chloride 99 mmol/L (98-107); Estimated CRCL calculation 70 ml/min; Estimated Glomerular Filt Rate > 60; Glucose 104 mg/dL (65-110); Potassium 3.4 mmol/L (3.4-5.0); Sodium 140 mmol/L (137-145)
[2024-09-12 13:04] LABS: Prothrombin Time 13.7 Seconds (11.1-14.7)
[2024-09-12 13:05] LABS: Partial Thromboplastin Time 31.4 Seconds (22.3-36.8)
--- OUTSIDE RECORDS SUMMARY | 2024-09-12 13:13 | XMS_ITS | Continuity of Care Document ---
Author Organization [employer] [facility] [place] Address [address] Burgos [address] [place] [address] Phone Care Team Providers Care 3D Animator Name Role Phone Johnny Glynn MD Unavailable [...] Diagnoses Date Provider Providers Copied on Encounter [facility], Dead [facility] [address], [place], [place], [address], [place] tel:[phone] SEC Kb MCKEON Professional Complete Exam (chief complaint) Superficial punctate keratitis of both eyesBilatera l artificial lens implantOther secondary cataract, bilateral 8 Renard Turner. [address] [facility] [facility] [address], [place], [place], [address], [place]. tel:[phone] Referring Provider: Johnny Bryan, [address] [facility] [address], [place], [address] . tel:[phone] [facility], [facility] [address], [place], [place], [address], [place] tel:[phone] SEC [place] Professional Post-Op (chief complaint) Encntr for f/u exam aft trtmt for cond oth than malig neoplm Dec-2 7 Renard Turner. [address] [facility], [place], [place], [address], [place]. tel:[phone] Referring Provider: Johnny Bryan, [address] [facility] [address], [place], [address] . tel:[phone] [facility], [address], [place], [place], [address], [place] tel:[phone] SEC [place] Professional Post-Op (chief complaint) Encntr for f/u exam aft trtmt for cond oth than malig neoplm Jun-0 7 Mary Rosales. [address] [facility], [place], [address], [place]. tel:[phone] Referring Provider: Johnny Bryan, [address] [facility] [address], [place], [address] . tel:[phone] [facility], [address], [place], [place], [address], [place] tel:[phone] SEC Kb LINDA Professional 2 day PC IOL po (chief complaint) Encntr for f/u exam aft trtmt for cond oth than malig neoplm Jun-0 7 Renard Turner. [address] [facility], [place], [place], [address], [place]. tel:[phone] Referring Provider: Johnny Bryan, [address] [facility] [address], [place], [address] . tel:[phone] [facility], [address], [place], [place], [address], [place] tel:[phone] [facility] No Information Renard Turner. [address] [facility], [address] [place], [address], [place]. tel:[phone] Referring Provider: Johnny Bryan, [address] [facility] [place], [address] . tel:[phone] [facility], [address], [place], [place], [address], [place] tel:[phone] SEC [facility] No Information Renard Turner. [address] [facility], [address] [place], [address], [place]. tel:[phone] Referring Provider: Johnny Bryan, [address] [facility] [place], [address] . tel:[phone] [facility], [address], [place], [place], [address], [place] tel:[phone] SEC Kb MCKEON Professional No Information Renard Turner. [address] [facility], [address] [place], [address], . tel:[phone] [facility], [address], [place], [place], [address], [place] tel:[phone] SEC [place] Professional 2 wk Toric CE PO (chief complaint) Post-op cataract surgery left eye Renard Turner. [address] [facility], [address] [place], [address], [place]. tel:[phone] Referring Provider: Johnny Bryan, [address] [facility] [place], [address] . tel:[phone] [facility], [address], [place], [place], [address], [place] tel:[phone] SEC Kb MCKE[place] Professional Post-Op (chief complaint) Post-op cataract surgery left eye Oct-3 1- 7 Renard Turner. [address] [place] [address] [place], [address], . tel:[phone] Referring Provider: Johnny Bryan, [address] [facility] [address], [place], [address] . tel:[phone] [facility], [address], [place], [place], [address], tel:[phone] SEC Kb MCKEON Professional 1 wk Toric CE PO (chief complaint) Post-op cataract surgery left eye Oct-3 0-201 7 Mary Rosales. [address] [place] [address], [address], . tel:[phone] Referring Provider: Johnny Bryan, [address] [facility] [address], [place], [address] . tel:[phone] [facility], [address], [place], [place], [address], tel:[phone] SEC [place] Professional 1 day PO PCIOL TORIC (chief complaint) No Information Oct-1 9 7 Klaus Orozco. [address] [facility], [address], [place], [place], [address], . tel:[phone] Referring Provider: Johnny Bryan, [address] [facility] [place], [address] . tel:[phone] [facility], [address], [place], [place], [address], [phone] [place] [address] No Information Oct-1 8 7 Renard Turner. [address] [place] [address] [place], [address], . tel:[phone] Referring Provider: Johnny Bryan, [address], [place], [address] . tel:[phone] [facility], [address] [place] [address] [address], [place], [place], [address], tel:[phone] SEC [place] [facility] No Information Oct-1 7 Renard Turner. [address] [facility] [address], [place], [place], [address], [place]. tel:[phone] Referring Provider: Johnny Bryan, [address] [facility] [address], [place], [address] . tel:[phone] Office/outpa tient Visit, [facility], [address] [place] [address] [address], [place], [place], [address], tel:[phone] SEC [place] Professional Cataract check/repeat measurements (chief complaint) No Information Oct-0 3 7 Renard Turner. [address], [address] [place], [address], [place]. tel:[phone] Referring Provider: Johnny Bryan, [address], [place], [address] . tel:[phone] Office/outpa tient Visit, [facility], [address] [place] [address] [address], [place], [place], [address], [place] tel:[phone] [place] Professional Follow up visit (chief complaint) No Information Sep- 7 Renard Turner. [address], [address] [place], [address], . tel:[phone] Referring Provider: Johnny Bryan, [address], [place], [address] . tel:[phone] Office/outpa tient Visit, [facility], [address] [place] [address] [address], [place], [place], [address], [place] tel:[phone] SEC Kb LINDA Professional Cataract evaluation (chief complaint) No Information 7 Renard Loveson. [address], [address], [place], [place], [address], [place]. tel:[phone] Family History Family Member Type Diagnosis Age At Onset No Information Payers Payer name Insurance type Covered democrat ID Authoriza tiestela(s) Medicare [facility] [id number] [facility] Life Insurance [id number] Social History Type Description Quantity Date Captured [...] cataract surgery left eye Follow up - as scheduled Impression/Plan - 2 week PO s/p Phaco [...] or sooner with problems Follow up - Return w zacharyin 1 week with Johnny Glynn M.D. for post op exam. Impression/Plan - On e week post-op s/p CE/PCIOL OS- Toric IOL in good position- Healing well- IOP well controlled- Activities restrictions reviewed. Medication instillation and post op instructions reviewed - OCT Mac WNL - Discussed that I would expect her vision to be a little better than what it is today- Instructed patient to follow up with Dr Glynn within 1 week Impression/Plan - Po st-op instructions given. Instructed [...] to ELSA and interest in Toric IOL Follow up - Return t o clinic in 6 months for cataract check (measurements if vision has changed) Impression/Plan - Ca taract OU:- Cataracts are affecting the vision and causing trouble with glare. - Best corrected vision meets the legal requirements to drive without restrictions.- Cataracts currently do not meet insurance qualifications for CE.- Recommend patient return in 6 months or sooner with problems. Assessments Type Assessment Date assessment Superficial punctate keratitis o f both eyes assessment Bilateral artificial lens implan t assessment Other secondary cataract, bilate ral Patient Care Teams Name Effective Dates (start - stop) Status Members No Information
[2024-09-12 13:14] LABS: Troponin I < 0.012 ng/mL (0.000-0.034)
--- OUTSIDE RECORDS SUMMARY | 2024-09-12 13:14 | XMS_ITS | Referral Summary ---
Author Organization [facility] Address [address] [place] [address] Care Team Providers Care Finger Buffs Assembler Name Role Phone Jarett Black MD Primary Care Provider [phone] Allergies No known active allergies Medications ALPRAZolam [...] on file Legal Sex Female 7:58 AM NEGATIVE RETOUCHER Gender Identity Not on file Sexual Orientation Not on file Last Filed Vital Signs Vital Sign Reading Time Taken Comments Blood Pressure 138/68 08/08/2023 2:19 PM NEGATIVE RETOUCHER Pulse 68 08/08/2023 2:19 PM NEGATIVE RETOUCHER Temperature 36.1 C (96.9 F) 08/08/2023 2:19 PM NEGATIVE RETOUCHER Respiratory Rate 18 08/08/2023 2:19 PM NEGATIVE RETOUCHER Oxygen Saturation 95% 08/08/2023 2:19 PM NEGATIVE RETOUCHER Inhaled Oxygen Concentration - - Weight 67.5 kg (148 lb 13 oz) 08/08/2023 10:42 A M NEGATIVE RETOUCHER Height 157.5 cm (5' 2 ) 08/08/2023 10:42 AM NEGATIVE RETOUCHER Body Mass Index 27.22 08/08/2023 10:42 AM NEGATIVE RETOUCHER Plan of Treatment Not on file Insurance MEDICARE COMMERCIAL GENERIC MEDICARE COMMERCIAL GENERIC MEDICARE SOLUTIONS MEDICARE SOLUTIONS Care Teams Finger Buffs Assembler Relationship Specialty Start Date End Date Jarett Black MD [address] [place] [address] PCP - General Family Medicine 03/22/23
--- OUTSIDE RECORDS SUMMARY | 2024-09-12 13:14 | XMS_ITS | Clinical Summary ---
Author Organization [facility] Address [address] [place] [address] Care Team Providers Care Fourth Grade Teacher Name Role Phone Jarett Black MD Primary Care Provider [phone] Allergies No known active allergies Medications ALPRAZolam [...] on file Legal Sex Female 7:58 AM GRIEF COUNSELLOR Gender Identity Not on file Sexual Orientation Not on file Obstetrics History Last Filed Vital Signs Vital Sign Reading Time Taken Comments Blood Pressure 138/68 08/08/2023 2:19 PM GRIEF COUNSELLOR Pulse 68 08/08/2023 2:19 PM GRIEF COUNSELLOR Temperature 36.1 C (96.9 F) 08/08/2023 2:19 PM GRIEF COUNSELLOR Respiratory Rate 18 08/08/2023 2:19 PM GRIEF COUNSELLOR Oxygen Saturation 95% 08/08/2023 2:19 PM GRIEF COUNSELLOR Inhaled Oxygen Concentration - - Weight 67.5 kg (148 lb 13 oz) 08/08/2023 10:42 A M GRIEF COUNSELLOR Height 157.5 cm (5' 2 ) 08/08/2023 10:42 AM GRIEF COUNSELLOR Body Mass Index 27.22 08/08/2023 10:42 AM GRIEF COUNSELLOR Plan of Treatment Health Maintenance Due Date [...] GENERIC MEDICARE SOLUTIONS MEDICARE SOLUTIONS Care Teams Fourth Grade Teacher Relationship Specialty Start Date End Date Jarett Black MD Isaias [facility] [place] [address] PCP - General Family Medicine 03/22/23
--- OUTSIDE RECORDS SUMMARY | 2024-09-12 13:14 | XMS_ITS | CONTINUITY OF CARE DOCUMENT ---
Author Name jacquie siddharthjesu Address Unknown Organization [facility] Address [address] [facility] [address] [place] [address] Phone [phone] Care Team Providers Care Hospitality Recruiter Name Role Phone Naldo Anne MD Unavailable [phone] PATRICIA AVELAR DO Unavailable [phone] PATRICIA AVELAR DO Unavailable [phone] PROBLEMS Condition Status Date Provider Notes Exposure [...] In-person encounter Office Visit Connor Luis MD [facility] EmphysemaCOPD - In-person encounter Office Visit Naldo Anne MD [facility] CHEST PAIN-07/18 NUC FALSE -POSDyslipidemiaHyperten sionTobacco abuseShortness of breathPericardial effusion - small 07/2010 - In-person encounter Office Visit Naldo Anne MD [facility] - In-person encounter Office Visit Naldo Anne MD [facility] CHEST PAIN-07/18 NUC FALSE -POSDyslipidemiaHyperten sionANXIETY DISORDER VITAL SIGNS Date Observation Value Provider Body Mass Index (Ratio) 30.72 kg/m2 Heydi Luis MD blood pressure, diastolic 80 mm[Hg] [facility] blood pressure, systolic 130 mm[Hg] Zachery ardon Hull oxygen saturation, oximetry 96 % [facility] respiratory rate E&M 16 /min [facility] pulse rate 96 /min [facility] weight E&M 168 [lb_av] [facility] height E&M 62 [in_i] [facility] Body Mass Index (Ratio) 30.72 kg/m2 [...] O'Yuniel blood pressure, diastolic 100 mm[Hg] [facility] O'Yuniel blood pressure, systolic 175 mm[Hg] [facility] O'Yuniel pulse rate 100 /min [facility] O'Yuniel oxygen saturation, oximetry 97 % [facility] O'Yuniel respiratory rate E&M 18 /min [facility] weight E&M 134 [lb_av] [facility] ALLERGIES No Known Drug Allergies HISTORY OF MEDICATION USE Medication Status Instructions Dates Provider Indications Com ments GABAPENTIN 300 MG ORAL CAPSULE active one tab daily Tiffany Vazquez AMBIEN 5 MG ORAL TABLET active one tab daily Tiffany Vazquez LISINOPRIL-HYDROCHLORO THIAZIDE 20-12.5 MG ORAL TABLET active one tab daily [employer] [facility] ASPIRIN ADULT LOW DOSE 81 MG [...] 1 tab by mouth 3 taimes daily [facility]uniel CRESTOR 5 MG ORAL TABLET active [...] MD number of grandchildren Connor Luis MD [facility] alcohol use, average drinks per day 1-3 drinks per day [facility] smoking/tobacco cess ation, patient education and counseling yes [facility] caffeine use, averag e drinks per day 1+ [facility] number of years as a smoker 40-50 [facility] smoking history, tot al pack/day 1 [facility] cigarette use yes [facility] smoking status Current every day smoker [...] Vazquez social history reviewed E&M reviewed Avery Epsetin RN smoking/tobacco cess ation, patient education and [...] Payer name Policy type / Coverage type [place] red libertarian ID [facility] [employer] [id number] [place] MED[place] Medicare [id number] ADVANCE DIRECTIVES Name Date DISCUSSED - NO [...] in 6 months. Connor Luis MD Cardiology:Her [facility] ed medication list for this problem includes: [...] and treatment. Bassem Clark Cardiology:Orders: E KG (CPT-18075) C omplete Echo (CPT-07371) S tress Exercise Cardiolite (CPT-05917) F VC - 51765 (16432) F RC - 10960 (75767) D LCO - 89313 (72268) Bassem Clark Date Name Covid Antibody IgA ( LC) Covid Antibody IgM ( LC) Covid Antibody Igg CT Chest without con trast Low Dose Lung CT DLCO - 84283 FRC - 87983 FVC - 13800 Stress Exercise Card iolite Complete Echo Complete Echo Stress Test - Nuclea r Complete Echo HISTORY OF PROCEDURES Procedure Date Procedure Name Provider Procedure Notes S tatus Stress EKG Thanh Friedman MD completed Cardiolite, 2 units Thanh Friedman MD completed SPECT Images Thanh Friedman MD completed FVC / MVV with bronchodilator - 60955 Naldo Anne MD completed BLOOD COUNT HEMOGLOBIN Naldo Anne MD completed FRC - 31932 Naldo Anne MD completed SpO2 w/o 6min walk/titration Naldo Anne MD completed DLCO - 30846 Naldo Anne MD complete d Counseling LDCT Naldo Anne MD compl eted EKG Naldo Anne MD completed EKG Naldo Anne MD completed
[2024-09-12 13:31] LABS: Influenza A QL RT-PCR Positive (Negative); Influenza B QL RT-PCR Negative (Negative); RSV RNA, RT-PCR Negative (Negative); SARS-CoV-2 RNA PCR Negative (Negative)
[2024-09-12 13:33] LABS: Add Urine Microscopic? YES; Appearance Urine Clear (Clear); Bacteria Urine None Seen /hpf; Bilirubin Urine Negative (Negative); Blood Urine Negative (Negative); Color Urine Yellow (Yellow); Glucose Urine UA Negative (Negative); Ketones Urine Negative (Negative); Leukocyte Esterase Ur Negative LEU/UL (Negative); Nitrate Urine Negative (Negative); Non Pathogenic Casts 0-2; Protein Urine 1+ mg/dL (Negative); Specific Grav Ur 1.013 (1.001-1.035); Squamous Epithelial Cell Urine None Seen /hpf (Few); Urobilinogen Urine 0.2 mg/dL (<2.0); WBC Urine 0-5 /hpf (0-3); pH Urine 7.5 (5.0-9.0)
--- NOTE | 2024-09-12 14:41 | ED.GENADULT ---
HPI - General Adult General Chief complaint: Shortness of Breath/Dyspnea Stated complaint: Shortness of breath, cough and congestion Time Seen by Provider: 09/12/24 13:08 History of Present Illness HPI narrative: 73-year-old female presents to the emergency department for evaluation for worsening shortness breath over last 2-3 days. Patient does have history of emphysema and does continue to smoke. Patient did follow-up with her primary care physician on the and was prescribed prednisone, azithromycin and Tessalon Perles. Patient does have an old prescription for albuterol but states she has not used it because she does not know how. Patient reports increased cough congestion body aches fatigue but denies any chest pain. Related Data Allergies Allergy/AdvReac Type Severity Reaction Status Date / Time No Known Allergies Allergy Unknown Verified 09/12/24 12:11 Review of Systems Review of Systems: All systems reviewed & are unremarkable except as noted in HPI and below PMFSH Past Medical History Medical History (Updated 09/12/24 @ 17:20 by Mervin Damon MD) COVID-19 Family History Family History Sibling Patient's brother is in good health Mother Family history of diabetes mellitus in first degree relative Father Family history of throat cancer Patient's father is Other Family history of malignant neoplasm of breast in first degree relative Social History Social History (Updated 05/23/22 @ 13:53 by Jessica Mendoza [facility]) Smoking packs per day: 1 Smoking cigarettes per day: 20.0 Years smoked: 55 Smoking pack-years: 55.00 Smoking status: Current some day smoker Tobacco type: cigarettes Second hand tobacco smoke exposure: No Alcohol intake: former Substance use: never Substance use type: does not use Lack of Transportation: No Lack of Food: Never True Current Housing: I Have Housing Concerned About Future Housing: No Difficulty Paying Gas/Electric Bills: No Difficulty Paying for Meds: No Currently Unemployed: No Exam Narrative: APPEARANCE: Ill-appearing HEAD: normocephalic, atraumatic. EYES: PERRLA/EOMI, conjunctivae clear. NOSE: Normal no drainage EARS:TMS clear with good light reflex. THROAT: Pharynx clear, no exudate. NECK: Supple. No adenopathy, no masses. RESPIRATORY: Wheezing respirations bilaterally CARDIOVASCULAR: Regular rate and rhythm without murmurs rubs or gallops. ABDOMINAL: Soft, nontender, nondistended, normal bowel sounds MUSCULOSKELETAL: Moves all extremities. Strength/ROM intact, No edema, No calf tenderness. NEURO: Alert. Cranial nerves II through XII intact. Good gait. Good coordination SKIN: Warm, dry. Normal Color Course Vital Signs Vital signs: Vital Signs Temperature 98.2 F 09/12/24 12:16 Pulse Rate 103 H 09/12/24 12:16 Respiratory Rate 20 09/12/24 12:16 Blood Pressure 153/78 H 09/12/24 12:16 Pulse Oximetry 93 09/12/24 12:16 Oxygen Delivery Room Air 09/12/24 12:16 Temperature 98.2 F 09/12/24 12:16 Pulse Rate 94 09/12/24 16:29 Respiratory Rate 16 09/12/24 16:29 Blood Pressure 127/82 09/12/24 16:29 Pulse Oximetry 93 09/12/24 16:29 Oxygen Delivery Room Air 09/12/24 12:36 Medical Decision Making MDM Narrative Medical decision making narrative: 73-year-old female presented emergency department for evaluation for increased shortness of breath. Patient did test positive for influenza A. Chest x-ray was positive for emphysema but no focal bacterial pneumonia. Patient is already on prednisone, azithromycin and benzoate. Patient does have a previous albuterol inhaler but she was provided a spacer today. Patient had a long albuterol neb in does feel improved. Patient does still have some minor wheeze on exam. Patient was offered admission for further treatment but patient declined prefers to be discharged home. Patient family updated on reasons to return to the emergency department. All questions were addressed. Differential Diagnosis Differential Diagnosis: COVID, RSV, influenza, pneumonia, COPD, emphysema Vital Signs Vital Signs: Vital Signs Temperature 98.2 F 09/12/24 12:16 Pulse Rate 103 H 09/12/24 12:16 Respiratory Rate 20 09/12/24 12:16 Blood Pressure 153/78 H 09/12/24 12:16 Pulse Oximetry 93 09/12/24 12:16 Oxygen Delivery Room Air 09/12/24 12:16 Temperature 98.2 F 09/12/24 12:16 Pulse Rate 94 09/12/24 16:29 Respiratory Rate 16 09/12/24 16:29 Blood Pressure 127/82 03/08/25 16:29 Pulse Oximetry 93 09/12/24 16:29 Oxygen Delivery Room Air 09/12/24 12:36 Lab Data Lab results reviewed: Yes I reviewed the patient's lab results. 09/12/24 12:44 09/12/24 12:44 Labs: Lab Results 09/12/24 09/12/24 Range/Units 12:44 13:15 WBC 8.1 (4.5-10.0) K/mm3 RBC 4.65 (4.2-5.4) M/mm3 Hgb 14.7 (12.0-15.0) g/dL Hct 42.5 (37.0-47.0) % MCV 91.4 (80-100) fl MCH 31.6 (26-34) pg MCHC 34.6 (32-36) g/dl RDW 12.4 (11.5-14.5) % Plt Count 139 L (150-375) k/mm3 MPV 9.7 (7.4-10.4) fl Immature Gran % (Auto) 0.2 (0-0.5) % Neut % (Auto) 87.0 H (45.5-73.1) % Lymph % (Auto) 8.1 L (18.3-44.2) % [place] % (Auto) 4.3 (2.6-8.5) % Eos % (Auto) 0.0 (0-4.4) % Baso % (Auto) 0.4 (0.2-1.2) % Lymph # (Auto) 0.65 L (0.9-3.2) K/mm3 [place] # (Auto) 0.4 (0.1-0.6) K/mm3 Eos # (Auto) 0.0 (0-0.3) K/mm3 Baso # (Auto) 0.0 (0.0-0.1) K/mm3 Abs Immat Gran (auto) 0.02 (0.00-0.031) K/mm3 Absolute Neuts (auto) 7.0 H (1.3-6.7) K/mm3 Absolute Nucleated RBC 0.000 (0.0-0.012) K/mm3 Nucleated RBC % 0.0 (0.0-0.2) % % Immature Plt Fraction 3.5 (0.9-11.2) % PT 13.7 (11.1-14.7) Seconds INR 1.0 APTT 31.4 (22.3-36.8) Seconds Sodium 140 (137-145) mmol/L Potassium 3.4 (3.4-5.0) mmol/L Chloride 99 (98-107) mmol/L Carbon Dioxide 31 H (22-30) mmol/L Anion Gap 10 (4-12) mmol/L BUN 7 (7-17) mg/dL Creatinine 0.54 L (0.7-1.0) mg/dL Estim Creat Clear Calc 70 ml/min Estimated GFR > 60 (59 - ) Glucose 104 (65-110) mg/dL Calcium 8.6 (8.4-10.2) mg/dL Total Bilirubin 0.4 (0.2-1.3) mg/dL AST 45 H (14-36) U/L ALT 31 (6-35) U/L Alkaline Phosphatase 69 (38-126) U/L Troponin I < 0.012 (0.000-0.034) ng/mL Total Protein 7.0 (6.3-8.2) g/dL Albumin 4.5 (3.5-5.1) g/dL Urine Color Yellow (Yellow) Urine Appearance Clear (Clear) Urine pH 7.5 (5.0-9.0) Ur Specific [place] 1.013 (1.001-1.035) Urine Protein 1+ H (Negative) mg/dL Urine Glucose (UA) Negative (Negative) mg/dL Urine Ketones Negative (Negative) mg/dL Ur Blood (Man) Negative (Negative) Urine Nitrate Negative (Negative) Urine Bilirubin Negative (Negative) Urine Urobilinogen 0.2 (<2.0) mg/dL Leukocyte Esterase Rfl Negative (Negative) RICO/UL Urine RBC 3-5 H (0-2) /hpf Urine WBC 0-5 (0-3) /hpf Ur Squamous Epith Cells None seen (Few) /hpf Urine Bacteria None seen /hpf Urine Casts 0-2 Influenza A (RT-PCR) Positive A (Negative) Influenza B (RT-PCR) Negative (Negative) RSV (RT-PCR) Negative (Negative) SARS-CoV-2 RNA (RT-PCR) Negative (Negative) Imaging Data Radiologist's impression: Impressions Chest X-Ray 09/12/24 12:36 IMPRESSION: 1. Emphysema. Discharge Plan Discharge Clinical Impression: Influenza A, Emphysema lung Patient Disposition: Home, Self-Care Condition: Stable Instructions: Antibiotic Form, Influenza (ED) Additional Instructions: You were offered admission for treatment for your influenza but abiodun preferred to be discharged home. Continue your azithromycin and prednisone and Tessalon Perles for cough. Use the albuterol inhaler with a spacer. If you have any worsening symptoms then please call or return to the emergency department. Patient Language: Faroese Prescriptions: No Action hydrocortisone [Proctosol HC] 2.5 % cream with perineal applicator See Rx Instructions topical .COMPLEX Qty: 30 0RF Rx Instructions: apply by topical route topical route 2-4 times every day a thin layer to the affected area(s); calcium carbonate 500 mg calcium (1,250 mg) tablet 500 mg PO DAILY Qty: 90 1RF alendronate 70 mg tablet 70 mg PO WEEKLY Qty: 12 1RF rosuvastatin 5 mg tablet See Rx Instructions .ROUTE .COMPLEX Qty: 90 1RF Dose Instruction: TAKE 1 TABLET BY MOUTH EVERY DAY Rx Instructions: TAKE 1 TABLET BY MOUTH EVERY DAY lisinopril-hydrochlorothiazide 20-12.5 mg tablet See Rx Instructions .ROUTE .COMPLEX Qty: 90 1RF Dose Instruction: TAKE ONE TABLET DAILY Rx Instructions: TAKE ONE TABLET DAILY gabapentin 300 mg capsule 300 mg PO BID Qty: 180 1RF alprazolam 1 mg tablet 1 mg PO BID Qty: 60 3RF cholecalciferol (vitamin D3) 50 mcg (2,000 unit) tablet See Rx Instructions .ROUTE .COMPLEX Qty: 90 1RF Dose Instruction: TAKE 1 TABLET BY MOUTH ONCE DAILY Rx Instructions: TAKE 1 TABLET BY MOUTH ONCE DAILY Paxlovid 300 mg (150 mg x 2)-100 mg tablets,dose pack See Rx Instructions PO .COMPLEX Qty: 30 0RF Rx Instructions: take TWO 150 mg tablets of nirmatrelvir with ONE 100 mg tablet of ritonavir twice daily for 5 days PO zolpidem 10 mg tablet 10 mg PO DAILY Qty: 30 2RF Rx Instructions: Take at bedtime Follow-up/Referrals: Wayne,MD Jarett [Primary Care Provider] -
[2024-09-12] MEDS: ALBUTEROL SULFATE NEB 2.5 MG/3 ML INH 10 MG INHALATION (14:50)
[2024-09-12 14:55] VITALS: RESP 18
[2024-09-12 15:54] VITALS: RESP 18
[2024-09-12 16:29] VITALS: BP 127/82; PULSE 94; RESP 16; O2SAT 93
== END 2024-09-12 17:36 | disposition home or self-care (01) ==
PROVIDERS: Emergency Provider Emergency Medicine; PCP Family Medicine
DX: J10.1 Influenza due to other identified influenza virus with other respiratory manifestations (principal); J43.9 Emphysema, unspecified; F17.210 Nicotine dependence, cigarettes, uncomplicated; Z20.822 Contact with and (suspected) exposure to COVID-19
CPT/HCPCS: 36415; 71046; 80053; 81001; 84484; 85025; 85055; 85610; 85730; 87637; 93005; 94640; 94664; 99284

== ENCOUNTER 2024-11-18 13:03 | Outpatient (CLI) | payer MEDICARE, SELFPAY ==
--- NOTE | ~2024-11-18 | CT_ITS ---
CT Scan of the Chest without Contrast: Clinical Indication: Lung cancer screening, nicotine dependence Technique: Contiguous sections were acquired throughout the chest without intravenous contrast. Dose reduction technique was used on this scan by utilizing automated exposure control and iterative recon struction technique. The dose-length product (DLP) was 67.57 mGy-cm. COMPARISON: 11/18/2023 Findings: There is no evidence of any significant mediastinal, hilar or axillary lymphadenopathy. The mediastin al soft tissues appear normal. Minimal pericardial fluid noted. There is no evidence of pleural effusion. Stable biapical scarring. Stable posterior right upper lobe/right apical nodules. Mild to moderate em physema present. Stable focal scarring at the lateral right lower lobe. Images through the upper abdomen reveal no abnormalities. Impression: Lung RADS 2: Benign appearance. 12 month follow-up screening CT advised. Reviewed, dictated and finalized at [facility]. Impression: Lung RADS 2: Benign appearance. 12 month follow-up screening CT advised.
--- OUTSIDE RECORDS SUMMARY | 2024-11-18 13:15 | XMS_ITS | CONTINUITY OF CARE DOCUMENT ---
Author Name jacquie siddharthjesu Address Unknown Organization [facility] Address [address] [place] [address] Phone [phone] Care Team Providers Care Airframe Technician Name Role Phone Naldo Anne MD Unavailable [phone] PATRICIA AVELAR DO Unavailable [phone] PATRICIA AVELAR DO Unavailable [phone] PROBLEMS Condition Status Date Provider Notes Exposure [...] In-person encounter Office Visit Connor Luis MD [place] [facility] EmphysemaCOPD - In-person encounter Office Visit Naldo Anne MD [place] [facility] CHEST PAIN-07/18 NUC FALSE -POSDyslipidemiaHyperten sionTobacco abuseShortness of breathPericardial effusion - small 07/2010 - In-person encounter Office Visit Naldo Anne MD [place] [facility] - In-person encounter Office Visit Naldo Anne MD [place] [facility] CHEST PAIN-07/18 NUC FALSE -POSDyslipidemiaHyperten sionANXIETY DISORDER VITAL SIGNS Date Observation Value Provider Body Mass Index (Ratio) 30.72 kg/m2 Heydi Luis MD blood pressure, diastolic 80 mm[Hg] [facility] blood pressure, systolic 130 mm[Hg] Zachery ardon [facility] oxygen saturation, oximetry 96 % [facility] respiratory rate E&M 16 /min [facility] pulse rate 96 /min [facility] weight E&M 168 [lb_av] [facility] height E&M 62 [in_i] [facility] Body Mass Index (Ratio) 30.72 kg/m2 [...] O'[facility] blood pressure, diastolic 100 mm[Hg] [facility] blood pressure, systolic 175 mm[Hg] [facility] O'Yuniel pulse rate 100 /min [facility] O'Yuniel oxygen saturation, oximetry 97 % [facility] O'Yuniel respiratory rate E&M 18 /min [...] MG ORAL TABLET active one tab daily ShoshanaCelly Taylor ASPIRIN ADULT LOW DOSE 81 MG [...] 1 tab by mouth 3 taimes daily [facility] CRESTOR 5 MG ORAL TABLET active ONE [...] MD number of grandchildren Connor Luis MD [facility] alcohol use, average drinks per day 1-3 drinks per day [facility] smoking/tobacco cess ation, patient education and counseling yes [facility] caffeine use, averag e drinks per day 1+ [facility] number of years as a smoker 40-50 [facility] smoking history, tot al pack/day 1 [facility] cigarette use yes [facility] smoking status Current every day smoker [...] Payer name Policy type / Coverage type [place] red green party ID [facility] [employer] [id number] [place] MED[place] Medicare [id number] ADVANCE DIRECTIVES Name Date DISCUSSED - NO [...] in 6 months. Connor Luis MD Cardiology:Her [facility] ed medication list for this problem includes: [...] and treatment. Bassem Clark Cardiology:Orders: E KG (CPT-95562) C omplete Echo (CPT-45757) S tress Exercise Cardiolite (CPT-71066) F VC - 60228 (78597) F RC - 38364 (33034) D LCO - 37086 (83427) Bassem Clark Date Name Covid Antibody IgA ( LC) Covid Antibody IgM ( LC) Covid Antibody Igg CT Chest without con trast Low Dose Lung CT DLCO - 05608 FRC - 28743 FVC - 92291 Stress Exercise Card iolite Complete Echo Complete Echo Stress Test - Nuclea r Complete Echo HISTORY OF PROCEDURES Procedure Date Procedure Name Provider Procedure Notes S tatus Stress EKG Thanh Friedman MD completed Cardiolite, 2 units Thanh Friedman MD completed SPECT Images Thanh Friedman MD completed FVC / MVV with bronchodilator - 50477 Naldo Anne MD completed BLOOD COUNT HEMOGLOBIN Naldo Anne MD completed FRC - 93832 Naldo Anne MD completed SpO2 w/o 6min walk/titration Naldo Anne MD completed DLCO - 51834 Naldo Anne MD complete d Counseling LDCT Naldo Anne MD compl eted EKG Naldo Anne MD completed EKG Naldo Anne MD completed
--- OUTSIDE RECORDS SUMMARY | 2024-11-18 13:15 | XMS_ITS | Continuity of Care Document ---
Author Organization [facility] Address [address] [place] [phone] Phone Care Team Providers Care Dairy Manufacturing Technologist Name Role Phone Johnny Glynn MD Unavailable [...] Diagnoses Date Provider Providers Copied on Encounter [facility], [address], [employer], [place], [address], [place] tel:[phone] SEC Kb MCKE[place] Professional Complete Exam (chief complaint) Superficial punctate keratitis of both eyesBilatera l artificial lens implantOther secondary cataract, bilateral 8 Renard Turner. [address] [facility] [address], [place], [place], [address], [place]. tel:[phone] Referring Provider: Johnny Bryan, [address], [place], [address] . tel:[phone] [facility], [address], [employer], [place], [address], [place] tel:[phone] SEC [place] Professional Post-Op (chief complaint) Encntr for f/u exam aft trtmt for cond oth than malig neoplm Dec-2 7 Renard Turner. [address] [facility], [place], [place], [address], [place]. tel:[phone] Referring Provider: Johnny Bryan, [address], [place], [address] . tel:[phone] [facility], [address] [place] [address], [employer], [place], [address], [place] tel:[phone] SEC [place] Professional Post-Op (chief complaint) Encntr for f/u exam aft trtmt for cond oth than malig neoplm Jun-0 7 Mary Rosales. [address] [facility], [place], [address], [place]. tel:[phone] Referring Provider: Johnny Bryan, [address], [place], [address] . tel:[phone] [facility], [address] [place] [address], [employer], [place], [address], [place] tel:[phone] SEC [place] Professional 2 day PC IOL po (chief complaint) Encntr for f/u exam aft trtmt for cond oth than malig neoplm Jun-0 7 Renard Turner. [address] [facility], [address], [place], [place], [address], [place]. tel:[phone] Referring Provider: Johnny Bryan, [address] [facility] [facility] [address], [place], [address] . tel:[phone] [facility], [address] [place] [address], [employer], [address], [place] tel:[phone] [facility] No Information Renard Turner. [address], [place], [address], [place]. tel:[phone] Referring Provider: Johnny Bryan, [address] [facility] [place], [address] . tel:[phone] [facility], [address] [place] [address], [employer], [address], [place] tel:[phone] SEC [facility] No Information Renard Turner. [address], [address] [place], [address], [place]. tel:[phone] Referring Provider: Johnny Bryan, [address] [place], [address] . tel:[phone] [facility], [address] [place] [address], [employer], [address], [place] tel:[phone] SEC Kb MCKEON Professional No Information Renard Turner. [address], [address] [place], [address], . tel:[phone] [facility], [address] [place] [address], [employer], [place], [address], [place] tel:[phone] SEC [place] Professional 2 wk Toric CE PO (chief complaint) Post-op cataract surgery left eye Renard Turner. [address] [facility] [address], [address] [place], [address], [place]. tel:[phone] Referring Provider: Johnny Bryan, [address] [facility] [place], [address] . tel:[phone] [facility], [address] [place] [address], [employer], [address], [place] tel:[phone] SEC Kb MCKE[place] Professional Post-Op (chief complaint) Post-op cataract surgery left eye Oct-3 1- 7 Renard Turner. [address] [place] [address] [place], [address], . tel:[phone] Referring Provider: Johnny Bryan, [address] [facility] [address], [place], [address] . tel:[phone] [facility], [address] [place] [address], [employer], [address], tel:[phone] SEC Kb MCKEON Professional 1 wk Toric CE PO (chief complaint) Post-op cataract surgery left eye Oct-3 0-201 7 Mary Rosales. [address] [place] [address], [address], . tel:[phone] Referring Provider: Johnny Bryan, [address] [facility] [address], [place], [address] . tel:[phone] [facility], [address] [place] [address], [employer], [address], tel:[phone] SEC [place] Professional 1 day PO PCIOL TORIC (chief complaint) No Information Oct-1 9 7 Klaus Orozco. [address] [facility], [address], [place], [place], [address], . tel:[phone] Referring Provider: Johnny Bryan, [address] [facility] [place], [address] . tel:[phone] [facility], [address] [place] [address], [employer], [place], [address], [phone] [place] [address] No Information Oct-1 8 7 Renard Turner. [address] [place] [address] [place], [address], . tel:[phone] Referring Provider: Johnny Bryan, [address], [place], [address] . tel:[phone] [facility], [address] [place] [address] [address], [employer], [address], tel:[phone] SEC [place] [facility] No Information Oct-1 7 Renard Turner. [address], [place], [place], [address], [place]. tel:[phone] Referring Provider: Johnny Bryan, [address] [facility], [place], [address] . tel:[phone] [place], [facility] [address] [place] [address] [address], [employer], [place], [address], tel:[phone] SEC [place] Professional Cataract check/repeat measurements (chief complaint) No Information Oct-0 3 7 Renard Turner. [address], [place], [address], [place]. tel:[phone] Referring Provider: Johnny Bryan, [address], [place], [address] . tel:[phone] [place]pa [place]ient [place], [facility], [address] [place] [address] [address], [employer], [place], [address], [place] tel:[phone] [place] Professional Follow up visit (chief complaint) No Information Sep- 7 Renard Turner. [address], [place], [address], . tel:[phone] Referring Provider: Johnny Bryan, [address], [place], [address] . tel:[phone] Office/outpa tient Visit, [facility], [address] [place] [address] [address], [employer], [address], [place] tel:[phone] SEC Kb LINDA Professional Cataract evaluation (chief complaint) No Information 7 Renard Loveson. [address], [address], [place], [place], [address], [place]. tel:[phone] Family History Family Member Type Diagnosis Age At Onset No Information Payers Payer name Insurance type Covered constitution party ID Authoriza tiestela(s) Medicare [facility] [id number] [facility] Life Insurance [id number] Social History Type Description Quantity Date Captured [...] exam aft trtmt for cond oth than kilo neoplm Follow up - Return t o clinic as scheduled or sooner with problems. Related to Encntr for f/u exam aft trtmt for cond oth than kilo neoplm Continue with CE OD on 06/05 [...] Related to Post-op cataract surgery left eye Age-related nuclear cataract of both eyes - Educational material given Related to Age-related nuclear cataract of both eyes Impression/Plan - Ca taracts OU:- Discussed all [...] and then Standard IOL OD for distance. Impression/Plan - Ca taract OU:- Cataracts account [...] interest in Toric IOL Follow up - Patient will be returning in 2 weeks for repeat testing for accuracy due to dryness Impression/Plan - Ca taract OU:- Cataracts are [...]
--- OUTSIDE RECORDS SUMMARY | 2024-11-18 13:15 | XMS_ITS | Clinical Summary ---
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 Gender Identity Not on file Sexual Orientation Not on file Obstetrics History Last Filed Vital Signs Vital Sign Reading Time Taken Comments Blood Pressure 138/68 08/08/2023 2:19 PM CARAMEL COLORING OPERATOR Pulse 68 08/08/2023 2:19 PM CARAMEL COLORING OPERATOR Temperature 36.1 C (96.9 F) 08/08/2023 2:19 PM CARAMEL COLORING OPERATOR Respiratory Rate 18 08/08/2023 2:19 PM CARAMEL COLORING OPERATOR Oxygen Saturation 95% 08/08/2023 2:19 PM CARAMEL COLORING OPERATOR Inhaled Oxygen Concentration - - Weight 67.5 kg (148 lb 13 oz) 08/08/2023 10:42 A M CARAMEL COLORING OPERATOR Height 157.5 cm (5' 2 ) 08/08/2023 10:42 AM CARAMEL COLORING OPERATOR Body Mass Index 27.22 08/08/2023 10:42 AM CARAMEL COLORING OPERATOR Plan of Treatment Health Maintenance Due Date [...] MEDICARE COMMERCIAL GENERIC MEDICARE COMMERCIAL GENERIC MEDICARE ADVANTAGE [facility] MEDICARE ADVANTAGE Care Teams Hot Roller Relationship Specialty Start Date End Date Jarett Black MD [address] [place] [address] [place] [address] PCP - General Family Medicine 03/22/23
--- OUTSIDE RECORDS SUMMARY | 2024-11-18 13:15 | XMS_ITS | Data Portability ---
Author Organization [place] [facility], Main Office Address [address] [place] [address] Care Team Providers Care Day Care Worker Name Role Phone JARETT BLACK Primary Care Provider Assessment Encounter Date Assessment Date Assessment LastModified by Organization Details LastModified Time 05/21/2024 05/21/2024 73 yo F with - [...] any concerns. Cont f/u with Derm at [place] [facility] [place] as per schedule. Offered to refer to [...] in 3 months. Annual labs in 09/29. [email or web address] Not available 05/21/2024 14:11:20 08/24/2024 08/24/2024 73 [...] any concerns. Cont f/u with Derm at [place] [facility] [place] as per schedule. Offered to refer to [...] in 2 months. Annual labs in 09/29. [email or web address] Not available 08/24/2024 14:48:41 09/09/2024 09/09/2024 The [...] via phone call to discuss the following: [email or web address] Not available 09/09/2024 16:33:47 10/07/2024 10/07/2024 74 yo F with - WELL ADULT VISIT - FATIGUE - HLD - EMPHYSEMA, mild - DEPRESSION - ANXIETY - CHRONIC INSOMNIA - HTN - RLS - OSTEOPOROSIS - SMOKER - OVERWEIGHT LDCT chest: 11/18/23. Annual labs: 09/25/23. LDCT chest: 11/15/22. Annual labs: 09/12/22. D/w pt in detail about her conditions, recent labs & imagines and further plan of care. Will do routine labs, [place] chest. [place]. [place] declined to do any changes in her Anxiety meds. Meds as directed. Diet and exercise explained in detail. BP diary education given and call us if any concerns. Cont f/u with Derm at [place] [facility] [place] as per schedule. Offered to refer to Counsellor/Psych ; but pt declined. Offered to refer for PFT/Pulmo; but pt declined. HM: WWE - 10/09/22, normal. Cont f/u with UPHOLSTERY MECHANIC/Gyne as needed. Mammo - 02/12/24, normal. Colonoscopy - Pt declined. Cologuard 09/20/22 - neg. DEXA - 11/15/22, osteopenia ++. Flu - Pt declined. Tdap - Pt declined. Pneumo - Pt declined. Shingrix - At pharmacy/HD. F/u in 2-3 weeks. Annual labs in 10/31. [email or web address] Not available 10/07/2024 12:48:49 10/28/2024 10/28/2024 74 yo F with - FATIGUE - HLD - EMPHYSEMA, mild - DEPRESSION - ANXIETY - CHRONIC INSOMNIA - HTN - RLS - OSTEOPOROSIS - SMOKER - OVERWEIGHT Annual labs: 10/07/24. CXR: 09/12/24. LDCT chest: 11/18/23. Annual labs: 09/25/23. LDCT chest: 11/15/22. Annual labs: 09/12/22. D/w pt in detail about her conditions, recent labs & imagines and further plan of care. Pt declined for [place] study. [place]. Pt declined to do any changes in her Anxiety meds. Meds as directed. Diet and exercise explained in detail. BP diary education given and call us if any concerns. Cont f/u with Derm at [place] [facility] [place] as per schedule. Offered to refer to Counsellor/Psych ; but pt declined. Offered to refer for PFT/Pulmo; but pt declined. HM: WWE - 10/09/22, normal. Cont f/u with UPHOLSTERY MECHANIC/Gyne as needed. Mammo - 02/12/24, normal. Colonoscopy - Pt declined. Cologuard 09/20/22 - neg. DEXA - 11/15/22, osteopenia ++. Flu - Pt declined. Tdap - Pt declined. Pneumo - Pt declined. Shingrix - At pharmacy/HD. F/u in 3 months. Annual labs in 10/31. [email or web address] Not available 10/28/2024 13:07:11 Plan of Treatment Reminders Order Date Submit Date Provider Last Modified By Organization Details Last Modified Time Details Appointments Follow Up 15 2024 11:45A Randi Black MD Not available Not available Not available Lab vitamin D, 25-hydrox y, total, serum [address] (Lab), [address] [place], [address], 10/07/2024 16:39:23 HbA1c (hemoglob in A1c), blood [address] (Lab), [address] [place], [address], 10/07/2024 16:39:53 CBC w/ auto diff [address] (Lab), [address] [place], [address], 10/07/2024 16:36:27 CMP, serum or plasma [address] (Lab), [address] [place], [address], 10/07/2024 16:37:57 urinalysi s complete, reflex culture [address] (Lab), [address] [place], [address], 10/07/2024 16:38:44 lipid panel, serum [address] (Lab), [address] [place], [address], 10/07/2024 16:35:02 TSH, serum, reflex free T4 [address] (Lab), [address] [place], [address], 10/07/2024 16:35:47 vitamin B12 + folate, serum or blood [address] (Lab), [address] [place], [address], 10/07/2024 16:40:26 magnesium , serum or plasma [address] (Lab), [address] [place], [address], 10/07/2024 16:40:55 drug screen, urine - To check for listed controlle d medicatio n [address] (Lab), [address] [place], [address], 09/04/2024 11:54:32 Referral None recorded. Procedures None recorded. Surgeries None recorded. Imaging LDCT, chest, for lung cancer screening - Please call patient to schedule. 2024 [facility], [facility] [address], [place], [address], 11/17/2024 10:13:15 Medication Orders alendrona te 70 mg tablet 2024 025 [email or web address] #84524, [address] [place], [place], [id number], 10/28/2024 12:43:39 lisinopri l 20 mg-hydroc hlorothia zide 12.5 mg tablet 2024 025 [facility] #49106, [address] [place], [place], [id number], 10/28/2024 12:43:40 Calcium 600 + D(3) 600 mg-10 mcg (400 unit) tablet 2024 025 [facility] #01525, [address] [place], [place], [id number], 10/28/2024 12:43:40 rosuvasta tin 10 mg tablet 2024 025 [facility] #15108, [address] [place], [place], [id number], 10/28/2024 12:43:40 trazodone 150 mg tablet 2024 025 [facility]78796, [address] [place], [place], [id number], 10/28/2024 12:43:41 albuterol sulfate HFA 90 mcg/actua tion aerosol inhaler 2024 025 [facility] #03850, [address] [place], [place], [id number], 10/28/2024 12:43:40 ipratropi um 0.5 mg-albute rol 3 mg (2.5 mg base)/3 mL nebulizat ion soln 2024 025 [facility]57626, [address] [place], [place], [id number], 10/28/2024 12:43:35 Breztri Aerospher e 160 mcg-9mcg- 4.8mcg/ac tuation HFA aerosol inhaler 2024 025 [facility] #00063, [address] [place], [place], [id number], 10/28/2024 12:43:34 gabapenti n 300 mg capsule 2024 025 [facility] #65184, [address] [place], [place], [id number], 10/28/2024 12:43:34 alendrona te 70 mg tablet 2024 025 [facility] #65383, [address] [place], [place], [id number], 10/07/2024 12:35:57 lisinopri l 20 mg-hydroc hlorothia zide 12.5 mg tablet 2024 025 [facility] #04082, [address] [place], [place], [id number], 10/07/2024 12:35:48 Calcium 600 + D(3) 600 mg-10 mcg (400 unit) tablet 2024 025 [facility] #23817, [address] [place], [place], [id number], 10/07/2024 12:35:49 rosuvasta tin 10 mg tablet 2024 025 [facility] #13716, [address] [place], [place], [id number], 10/07/2024 12:35:50 trazodone 150 mg tablet 2024 025 [email or web address] [facility] #15009, [address] [place], [place], [id number], 10/07/2024 12:35:55 albuterol sulfate HFA 90 mcg/actua tion aerosol inhaler 2024 025 [facility] #55600, [address] [place], [place], [id number], 10/07/2024 12:35:47 ipratropi um 0.5 mg-albute rol 3 mg (2.5 mg base)/3 mL nebulizat ion soln 2024 025 [facility] #25705, [address] [place], [place], [id number], 10/07/2024 12:35:50 Breztri Aerospher e 160 mcg-9mcg- 4.8mcg/ac tuation HFA aerosol inhaler 2024 025 [facility] #21904, [address] [place], [place], [id number], 10/07/2024 12:35:58 gabapenti n 300 mg capsule 2024 025 [facility] #53551, [address] [place], [place], [id number], 10/07/2024 12:35:58 azithromy shyla 250 mg tablet [email or web address] [place] [address] [facility] #43238, [address] [place], [place], [id number], 10/07/2024 12:38:13 prednison e 10 mg tablet 2024 025 [facility] #08558, [address] [place], [place], [id number], 09/09/2024 16:38:51 benzonata te 200 mg capsule 2024 025 [email or web address] [facility] #33502, [address] [place], [place], [id number], 10/07/2024 12:38:17 alendrona te 70 mg tablet 2024 025 [facility] #86651, [address] [place], [place], [id number], 08/24/2024 14:44:24 lisinopri l 20 mg-hydroc hlorothia zide 12.5 mg tablet 2024 025 [facility] #35461, [address] [place], [place], [id number], 08/24/2024 14:44:25 hydrocort isone 2.5 % topical cream 2024 025 [facility] #53437, [address] [place], [place], [id number], 08/24/2024 14:44:23 Calcium 600 + D(3) 600 mg-10 mcg (400 unit) tablet 2024 025 [facility] #18292, [address] [place], [place], [id number], 08/24/2024 14:44:24 rosuvasta tin 10 mg tablet 2024 025 [facility] #99397, [address] [place], [place], [id number], 08/24/2024 14:44:23 trazodone 150 mg tablet 2024 025 [facility] #30223, [address] [place], [place], [id number], 08/24/2024 14:44:34 albuterol sulfate HFA 90 mcg/actua tion aerosol inhaler 2024 025 [facility] #33450, [address] [place], [place], [id number], 08/24/2024 14:44:25 gabapenti n 300 mg capsule 2024 025 [facility] #58899, [address] [place], [place], [id number], 08/24/2024 14:44:26 alendrona te 70 mg tablet 2023 [facility] #21950, [address] [place], [place], [id number], 05/21/2024 14:18:12 lisinopri l 20 mg-hydroc hlorothia zide 12.5 mg tablet 2023 [facility] #88478, [address] [place], [place], [id number], 05/21/2024 14:18:41 nicotine 14 mg/24 hr daily transderm al patch 2023 [facility] #24207, [address] [place], [place], [id number], 05/21/2024 14:18:14 alprazola m 1 mg tablet 2023 [facility] #72895, [address] [place], [place], [id number], 05/21/2024 14:22:34 hydrocort isone 2.5 % topical cream 2023 [facility] #17264, [address] [place], [place], [id number], 05/21/2024 14:18:16 Calcium 600 + D(3) 600 mg-10 mcg (400 unit) tablet 2023 [facility] #20442, [address] [place], [place], [id number], 05/21/2024 14:18:21 rosuvasta tin 10 mg tablet 2023 024 [facility] #[id number] [place], [place], [id number], 05/21/2024 14:18:15 trazodone 150 mg tablet 2023 [facility] #[id number] [place], [id number], 05/21/2024 14:18:14 albuterol sulfate HFA 90 mcg/actua tion aerosol inhaler 2023 [facility] #[id number] [place], [place], [id number], 05/21/2024 14:18:15 gabapenti n 300 mg capsule 2023 [facility] #[id number] [place], [place], [id number], 05/21/2024 14:18:31 Patient TargetsNo targets recorded. Patient Instructions Encounter Date Encounter Id Patient Instructions Last Modified By Organization Details Last Modified Time 09/09/2024 [id number] Due to the COVID-19 (Novel Coronavirus) pandemic, it is within this context (and with the understanding that this method of patient encounter is in the patient s best interest as well as the health and safety of other patients and the public) that telehealth is being provided for this patient encounter rather than a [id number] visit. This patient encounter is appropriate at this time. This patient has been advised of the potential risks and limitations of this mode of treatment (including, but not limited to, the absence of in-person examination) and has agreed to be treated in a remote fashion despite these risks. Any and all of the patient s/patient s family s questions on this issue have been answered, and I have made no promises or guarantees to the patient. The patient has also been advised to contact this office for worsening conditions or problems, and seek emergency medical treatment and/or call 911 if the patient deems either necessary. HPI and/or vitals, if listed, were provided by the patient. [email or web address] Not available 09/09/2024 16:33:15 Reason for Referral None Reported. Results Created Date Observation Date Name Description Value Unit Range Abnormal Flag Note LastModifiedBy Organization Detail LastModifiedTime 09/13/19 25 09/12/2024 XR, chest , 2 view No observ ation record ed. [email or web address] [facility] [address], [place], [address], 10/07/2024 12:28:03 Result Notes None recorded. Problems Name Problem SNOMED Code Status Onset Date Resolution Date Notes Provider Name and Address Organization Details Recorded Time Anxiety disorder 786533172 Active 2022 Not Available [facility] 3 01:47:45 Restless legs 61048597 Active 2022 Not Available [facility] 3 01:47:45 Depressive disorder 65626880 Active 2022 Not Available [facility] 3 01:47:45 Hypertensi ve disorder 67857249 Active 2022 Not Available [facility] 3 01:47:45 Hyperlipid emia 71974754 Active 2022 Not Available [facility] 3 01:47:45 Osteoporos is 21798971 Active 2022 Not Available [facility] 01:47:45 008780084 Active 2022 Not Available [facility] 3 01:47:46 Chronic insomnia 370737770 Active 2022 Not Available [facility] 3 01:47:46 Overweight 329033551 Active 2022 Jarett Black MD [address] [facility], [place], [address] , [employer] 3 10:13:45 Screening for malignant neoplasm of colon Active 2022 Sil Garner NP [address], [address], [place], [address] , [employer] [facility] 3 14:53:49 Osteopenia 225130467 Active 2022 Jarett Black MD [address], [address], [place], [address] , [place] [facility] 3 08:22:33 Pulmonary emphysema 54084364 Active 2022 Jarett Black MD [address], [address], [place], [address] , [place] [facility] 3 14:16:30 Herpes labialis 3036067 Active 2022 Jarett Black MD [address], [address], [place], [address] , [facility] 3 15:10:57 Lesion of skin of face 334424986543 Active 2022 Jarett Black MD [address], [address], [place], [address] , [place] [facility] 3 15:11:42 Bronchitis 01467959 Active 2023 Jarett Black MD [address], [address], [place], [address] , [place] [facility] 4 14:55:53 Acute urinary tract infection 926089966 Active 2023 SAVITA Dutta [address], [address], [place], [address] , [facility] 4 14:08:44 Bilateral earache 643682704 Active 2023 Jarett Black MD [address], [address], [place], [address] , [facility] 4 14:29:02 Allergic contact dermatitis 636532569 Active 2023 Jarett Black MD [address], [address], [place], [address] , [facility] 4 14:07:02 Motion sickness 82809829 Active 2023 Jarett Black MD [address], [place], [address] , [facility] 4 14:07:25 Cough 04463467 Active 2024 Jarett Black MD [address], [place], [address] , [place] [facility] 5 16:35:17 Fever 796636212 Active 2024 Jarett Black MD [address], [place], [address] , [facility] 5 16:38:35 Cigarette smoker 15451938 Active 2024 Jarett Black MD [address], [place], [address] , [facility] 5 11:59:20 Fatigue 14982197 Active 2024 Jarett Black MD [address], [place], [address] , [employer] [facility] [employer] 5 12:38:27 Problem Notes None recorded. Procedures Surgical History Date Name Laterality Status Provider Name and Address Organization Details Recorded Time 10/08/19 25 Smoking Cessation completed MD [address], [place], [address], [facility] 10/07/2024 12:49:05 08/24/19 25 Smoking Cessation completed MD [address], [place], [address], [facility] 08/24/2024 14:38:39 05/21/20 24 Smoking Cessation completed MD [address], [place], [address], [facility] 05/21/2024 14:12:23 09/17/19 24 Medicare Wellness CPT Code, Initial completed October [facility] [employer] 09/16/2023 15:09:23 09/17/19 24 Smoking Cessation completed Jarett Black MD [address], [address], [place], [address], [employer] 09/17/2023 12:46:57 06/18/20 23 Smoking Cessation completed Jarett Black MD [address], [address], [place], [address], [employer] [facility] 06/18/2023 12:47:33 03/12/20 23 Smoking Cessation completed Jarett Black MD [address], [address], [place], [address], [employer] 03/12/2023 14:30:09 12/11/19 23 Smoking Cessation completed Jarett Black MD [address], [address], [place], [address], [employer] 12/10/2022 14:17:07 09/13/19 23 Smoking Cessation completed Jarett Black MD [address], [address], [place], [address], [employer] 09/12/2022 10:23:27 07/08/19 22 Most Recent Bone Density completed Not Available [facility] 09/06/2022 01:47:18 07/08/19 03 Hysterectomy completed Not Available [facility] 09/06/2022 01:47:19 cholecystectomy completed Not Available [facility] 09/06/2022 01:47:19 Tonsillectomy completed Not Available [facility] 09/06/2022 01:47:19 Imaging Results Imaging Date Name Status LastModified by Organiz ation Details LastModified Time 09/12/2024 XR, chest, 2 view completed [email or web address] [id number], [place], [address], 10/07/2024 12:28:03 Procedure Notes None recorded. Medical Equipment None [...] Not Available Not Available Not Avai lable ipratropium 0.5 mg-albutero l 3 mg (2.5 mg base)/3 mL nebulizatio n soln Inhale 3 mL every 6 hours by nebulizat ion route as needed for 30 days. 2024 active Not Available Not Available [...] ORAL ROUTE ONCE DAILY FOR 4 DAYS 10/07 completed Not Available Not Available Not Available alprazolam 1 mg tablet TAKE 1 TABLET BY MOUTH EVERY 12 HOURS NEEDED 2024 active Not Available Not Available Not Avai lable benzonatate 200 mg capsule TAKE 1 CAPSULE BY MOUTH EVERY 8 HOURS FOR 5 DAYS NEEDED 10/07 completed Not Available Not Available Not Available hydrocodone 5 mg-acetamin ophen 325 mg tablet [...] Not Available Not Available Not Avai lable Breztri Aerosphere 160 mcg-9mcg-4. 8mcg/actuat ion HFA aerosol inhaler Inhale 2 puffs twice a day by inhalatio n route as directed for 30 days. 2024 active Not Available Not Available [...] Updated DateTime 4 160.02 cm 25.8 kg/m2 74162.7 7 g 97.3 [degF] 80 /min 95 % 95 % Yadira Patel RN [place] [facility] [place] [employer] [id number]|2024-11-18 13:15:00|2024-11-18 13:15:00|XMS_ITS|MICKI JOSE|External Medical Summaries|[id number]|" Referral Summary Created on: November 18, 2024 Araceli Rider : 1950 Sex: Female Author Organization [facility] Address [address] [place] [address] Care Team Providers Care Day Care Worker Name Role Phone Jarett Black MD Primary Care Provider [phone] Allergies No known active allergies Medications ALPRAZolam [...] on file Legal Sex Female 7:58 AM [employer]AL PATTERN [employer] Gender Identity Not on file Sexual Orientation Not on file Last Filed Vital Signs Vital Sign Reading Time Taken Comments Blood Pressure 138/68 08/08/2023 2:19 PM [employer] Pulse 68 08/08/2023 2:19 PM [employer] Temperature 36.1 C (96.9 F) 08/08/2023 2:19 PM [employer]AL [employer] Respiratory Rate 18 08/08/2023 2:19 PM [employer]AL [employer] Oxygen Saturation 95% 08/08/2023 2:19 PM [employer]AL [employer] Inhaled Oxygen Concentration - - Weight 67.5 kg (148 lb 13 oz) 08/08/2023 10:42 A M [employer] Height 157.5 cm (5' 2 ) 08/08/2023 10:42 AM [employer]AL PATTERN [employer] Body Mass Index 27.22 08/08/2023 10:42 AM METAL PATTERN [employer]ER Plan of Treatment Not on file Insurance MEDICARE COMMERCIAL GENERIC MEDICARE COMMERCIAL GENERIC [facility] MEDICARE ADVANTAGE [facility] MEDICARE ADVANTAGE Care Teams Day Care Worker Relationship Specialty Start Date End Date Jarett Black MD [address] [place] [address] PCP - General Family Medicine 03/22/23 "
--- OUTSIDE RECORDS SUMMARY | 2024-11-18 13:15 | XMS_ITS | Data Portability ---
Author Organization [facility] Address [address] [place] [address] Assessment No assessment recorded. Plan of Treatment Reminders Order Date Submit Date Provider Last Modified By Organization Details Last Modified Time Details Appointments None recorded. Lab CBC 2015 016 [facility], [address] [place] [address], [address], [place], [address], 6 09:24:52 CMP, serum or plasma 2015 016 [facility], [address] [place] [address], [address], [place], [address], 6 09:24:52 lipid panel, serum 2015 016 [facility], [address] [place] [address], [address], [place], [address], 6 09:24:53 TSH + free T4, serum 2015 016 [facility], [address] [place] [address], [address], [place], [address], 6 09:24:51 Referral gastroente rologist referral - history of polyps overdue for [facility]oscop [facility] [address] [facility] [address] [facility], [place], [address], 6 15:58:00 Procedures None recorded. Surgeries None recorded. Imaging None recorded. Medication Orders lovastatin 40 mg tablet 2015 016 [facility], [address] [place], [address], 6 15:49:20 lisinopril 20 mg-hydroch lorothiazi de 12.5 mg tablet 2015 016 [facility], [address] [place], [address], 6 15:35:13 lovastatin 40 mg tablet 2015 016 [facility], [address] [place], [address], 6 15:35:11 alprazolam 1 mg tablet 2015 016 [facility], [address] [place], [address], 6 16:15:45 zolpidem 5 mg tablet 2015 016 [facility], [address] [place], [address], 6 16:15:45 codeine 10 mg-guaifen esin 100 mg/5 mL oral liquid 2014 015 [facility], [address] [place], [address], 5 15:24:07 Cipro 500 mg tablet 2014 015 [facility], [address] [place], [address], 5 15:24:58 zolpidem 5 mg tablet 2014 015 [facility], [address] [place], [address], 5 16:33:32 alprazolam 1 mg tablet 2014 015 [facility], [address] [place], [address], 5 15:55:21 Patient TargetsNo targets recorded. Patient Instructions Encounter Date Encounter Id Patient Instructions Last Modified By Organization Details Last Modified Time 03/21/2015 [id number] bronchitis: care instructions Not available 03/21/2015 15:20:14 09/08/2015 [id number] learning about high blood pressure Not available 09/08/2015 15:31:50 09/26/2015 [id number] colon polyps: care instructions Not available 09/26/2015 [...] uIU/m L 0.450- 4.500 Not Available [facility] ([facility]) [address] [place], [address], 09/10/2015 09:24:51 09/09/19 16 09/10/2015 TSH + free T4, serum T4,free(dire ct) 1.05 NG/dL 0.82-1 .77 Not Available [facility] ([facility]) [address] [place], [address], 09/10/2015 09:24:51 09/09/19 16 09/10/2015 CBC WBC 7.9 x10e3 /uL 3.4-10 .8 Not Available [facility] ([facility]) [address] [place], [address], 09/10/2015 09:24:51 09/09/19 16 09/10/2015 CBC RBC 4.61 x10e6 /uL 3.77-5 .28 Not Available [facility] ([facility]) [address], [place], [address], 09/10/2015 09:24:51 09/09/19 16 09/10/2015 CBC hemoglobin 14.6 g/dL 11.1-1 5.9 Not Available [facility] ([facility]) [address], [place], [address], 09/10/2015 09:24:51 09/09/19 16 09/10/2015 CBC hematocrit 42.0 % 34.0-4 6.6 Not Available [facility] ([facility]) [address], [place], [address], 09/10/2015 09:24:51 09/09/19 16 09/10/2015 CBC MCV 91 fL 79-97 Not Available [facility] ([facility]) [address] [place], [address], 09/10/2015 09:24:51 09/09/1909/10/2015 CBC MCH 31.7 pg 26.6-3 3.0 Not Available [facility] ([facility]) [address], [place], [address], 09/10/2015 09:24:51 09/09/19 16 09/10/2015 CBC MCHC 34.8 g/dL 31.5-3 5.7 Not Available [facility] ([facility]) [address], [place], [address], 09/10/2015 09:24:51 09/09/19 16 09/10/2015 CBC RDW 12.9 % 12.3-1 5.4 Not Available [facility] ([facility]) [address], [place], [address], 09/10/2015 09:24:51 09/09/1909/10/2015 CBC platelets 197 x10e3 /uL 150-37 9 Not Available [facility] ([facility]) [address], [place], [place], [address], 09/10/2015 09:24:51 09/09/19 16 09/10/2015 CBC neutrophils 63 % Not Avai lable [facility] ([facility]) [address], [place], [place], [address], 09/10/2015 09:24:51 09/09/19 16 09/10/2015 CBC lymphs 30 % Not Available [facility] ([facility]) [address], [place], [place], [address], 09/10/2015 09:24:51 09/09/19 16 09/10/2015 CBC monocytes 6 % Not Availa ble [facility] ([facility]) [address], [place], [place], [address], 09/10/2015 09:24:51 09/09/19 16 09/10/2015 CBC eos 1 % Not Available [facility] ([facility]) [address], [place], [place], [address], 09/10/2015 09:24:51 09/09/19 16 09/10/2015 CBC basos 0 % Not Available [facility] ([facility]) [address], [place], [place], [address], 09/10/2015 09:24:51 09/09/19 16 09/10/2015 CBC immature cells PSYCHOLOGIST RESEARCH ASSISTANT Not Available [facility] ([facility]) [address], [place], [place], [address], 09/10/2015 09:24:51 09/09/19 16 09/10/2015 CBC neutrophils (absolute) 4.9 x10e3 /uL 1.4-7. 0 Not Available [facility] ([facility]) [address] [place], [address], 09/10/2015 09:24:51 09/09/19 16 09/10/2015 CBC lymphs (absolute) 2.4 x10e3 /uL 0.7-3. 1 Not Available [facility] ([facility]) [address] [place], [id number], 09/10/2015 09:24:51 09/09/19 16 09/10/2015 CBC monocytes(ab solute) 0.5 x10e3 /uL 0.1-0. 9 Not Available [facility] ([facility]) [address], [place], [id number], 09/10/2015 09:24:51 09/09/19 16 09/10/2015 CBC eos (absolute) 0.1 x10e3 /uL 0.0-0. 4 Not Available [facility] ([facility]) [address], [place], [id number], 09/10/2015 09:24:51 09/09/19 16 09/10/2015 CBC baso (absolute) 0.0 x10e3 /uL 0.0-0. 2 Not Available [facility] ([facility]) [address], [place], [id number], 09/10/2015 09:24:51 09/09/19 16 09/10/2015 CBC immature granulocytes 0 % Not Available [facility] ([facility]) [address], [place], [place], [id number], 09/10/2015 09:24:51 09/09/1909/10/2015 CBC immature grans (abs) 0.0 x10e3 /uL 0.0-0. 1 Not Available [facility] ([facility]) [address], [place], [id number], 09/10/2015 09:24:51 09/09/1909/10/2015 CBC NRBC PSYCHOLOGIST RESEARCH ASSISTANT Not Available [facility] ([facility]) [address], [place], [place], [id number], 09/10/2015 09:24:51 09/09/19 16 09/10/2015 CBC hematology comments: PSYCHOLOGIST RESEARCH ASSISTANT Not Available [facility] ([facility]) [address] [place], [id number], 09/10/2015 09:24:51 09/09/19 16 09/10/2015 CMP, serum or plasm a glucose, serum 99 mg/dL 65-99 Not Available [facility] ([facility]) [address] [place], [id number], 09/10/2015 09:24:52 09/09/1909/10/2015 CMP, serum or plasm a BUN 9 mg/dL 8-27 Not Available [facility] ([facility]) [address], [place], [id number], 09/10/2015 09:24:52 09/09/19 16 09/10/2015 CMP, serum or plasm a creatinine, serum 0.73 mg/dL 0.57-1 .00 Not Available [facility] ([facility]) [address], [place], [id number], 09/10/2015 09:24:52 09/09/19 16 09/10/2015 CMP, serum or plasm a eGFR if nonafricn AM 87 mL/mi n/1.7 3 >59 Not Available [facility] ([facility]) [address], [place], [id number], 09/10/2015 09:24:52 09/09/1909/10/2015 CMP, serum or plasm a eGFR if africn AM 101 mL/mi n/1.7 3 >59 Not Available [facility] ([facility]) [address], [place], [id number], 09/10/2015 09:24:52 09/09/1909/10/2015 CMP, serum or plasm a BUN/creatini ne ratio 12 11-26 Not Available [facility] ([facility]) [address], [place], [address], 09/10/2015 09:24:52 09/09/19 16 09/10/2015 CMP, serum or plasm a sodium, serum 141 mmol/ L 134-14 4 Not Available [facility] ([facility]) [address], [place], [address], 09/10/2015 09:24:52 09/09/19 16 09/10/2015 CMP, serum or plasm a potassium, serum 4.2 mmol/ L 3.5-5. 2 Not Available [facility] ([facility]) [address], [place], [address], 09/10/2015 09:24:52 09/09/1909/10/2015 CMP, serum or plasm a chloride, serum 99 mmol/ L 97-108 Not Available [facility] ([facility]) [address] [place], [address], 09/10/2015 09:24:52 09/09/1909/10/2015 CMP, serum or plasm a carbon dioxide, total 27 mmol/ L 18-29 Not Available [facility] ([facility]) [address], [place], [address], 09/10/2015 09:24:52 09/09/1909/10/2015 CMP, serum or plasm a calcium, serum 9.6 mg/dL 8.7-10 .3 Not Available [facility] ([facility]) [address] [place], [address], 09/10/2015 09:24:52 09/09/1909/10/2015 CMP, serum or plasm a protein, total, serum 6.5 g/dL 6.0-8. 5 Not Available [facility] ([facility]) [address] [place] [address], [address], 09/10/2015 09:24:52 09/09/1909/10/2015 CMP, serum or plasm a albumin, serum 4.1 g/dL 3.6-4. 8 Not Available [facility] ([facility]) [address], [place], [id number], 09/10/2015 09:24:52 09/09/1909/10/2015 CMP, serum or plasm a globulin, total 2.4 g/dL 1.5-4. 5 Not Available [facility] ([facility]) [address], [place], [id number], 09/10/2015 09:24:52 09/09/1909/10/2015 CMP, serum or plasm a A/G ratio 1.7 1.1-2. 5 Not Available [facility] ([facility]) [address], [place], [id number], 09/10/2015 09:24:52 09/09/1909/10/2015 CMP, serum or plasm a bilirubin, total 0.3 mg/dL 0.0-1. 2 Not Available [facility] ([facility]) [address], [place], [id number], 09/10/2015 09:24:52 09/09/1909/10/2015 CMP, serum or plasm a alkaline phosphatase, S 78 IU/L 39-117 Not Available [facility] ([facility]) [address], [place], [id number], 09/10/2015 09:24:52 09/09/1909/10/2015 CMP, serum or plasm a AST (SGOT) 18 IU/L 0-40 Not Available [facility] ([facility]) [address], [place], [id number], 09/10/2015 09:24:52 09/09/1909/10/2015 CMP, serum or plasm a ALT (SGPT) 17 IU/L 0-32 Not Available [facility] ([facility]) [address], [place], [id number], 09/10/2015 09:24:52 09/09/19 16 09/10/2015 lipid panel , serum cholesterol, total 253 mg/dL 100-19 9 above high normal Not Available [facility] ([facility]) [address], [place], [address], 09/10/2015 09:24:53 09/09/19 16 09/10/2015 lipid panel , serum triglyceride s 139 mg/dL 0-149 Not Available [facility] ([facility]) [address], [place], [place], [address], 09/10/2015 09:24:53 09/09/19 16 09/10/2015 lipid panel , serum HDL cholesterol 62 mg/dL >39 ACCOR DING TO ATP-I II GUIDE LINES , HDL-C >59 MG/DL IS CONSI DERED A NEGAT BRICE RISK FACTO R FOR CHD. Not Available [facility] ([facility]) [address], [place], [place], [address], 09/10/2015 09:24:53 09/09/19 16 09/10/2015 lipid panel , serum VLDL cholesterol dania 28 mg/dL 5-40 Not Available [facility] ([facility]) [address], [place], [address], 09/10/2015 09:24:53 09/09/19 16 09/10/2015 lipid panel , serum LDL cholesterol calc 163 mg/dL 0-99 above high normal Not Available [facility] ([facility]) [address] [place], [address], 09/10/2015 09:24:53 09/09/19 16 09/10/2015 lipid panel , serum comment: PSYCHOLOGIST RESEARCH ASSISTANT Not Available [facility] ([facility]) [address], [place], [address], 09/10/2015 09:24:53 09/09/19 16 09/10/2015 lipid panel , serum LDL/HDL ratio 2.6 ratio _unit s 0.0-3. 2 LDL/H DL RATIO MEN WOMEN 1/2 AVG.R ISK 1.0 1.5 AVG.R ISK 3.6 3.2 2X AVG.R ISK 6.2 5.0 3X AVG.R ISK 8.0 6.1 Not Available [facility] ([facility]) [address], [place], [place], [address], 09/10/2015 09:24:53 09/09/19 16 09/10/2015 cardi ovasc ular asses sment panel , serum interpretati on NOTE SUPPL EMENT REPOR T IS AVAIL ABLE. Not Available [facility] ([facility]) [address], [place], [place], [address], 09/10/2015 09:24:54 09/09/19 16 09/10/2015 cardi ovasc ular asses sment panel , serum pdf image . Not Available [facility] ([facility]) [address], [place], [place], [address], 09/10/2015 09:24:54 Result Notes None recorded. 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 Procedures Surgical History Date Name Laterality Status Provider Name and Address Organization Details Recorded Time Tonsillectomy completed Cassia Monson [place] [facility] 09/16/2014 15:24:55 Hysterectomy completed Cassia Monson MA [facility] 09/16/2014 15:24:55 Imaging Results None recorded. [...] Details Last Updated DateTime 5 157.48 cm 09820.0 47367 g 94 % 94 % 30.1 kg/m2 120 mm[Hg] 80 mm[Hg] Yris SURINDER Watson [facility] 5 15:04:20 Date Recorded Body height Body weight Body mass index (BMI) Provider Name and Address Organization Details Last Updated DateTime 09/26/2015 157.48 cm 45671.30553 5 g 30.3 kg/m2 Yris WatsonSURINDER [facility] 09/26/2015 15:18:57 Date Recorded Body height Body mass index (BMI) Body weight Systolic blood pressure Diastolic blood pressure Provider Name and Address Organization Details Last Updated DateTime 09/16/2014 157.48 cm 31.5 kg/m2 90361.93 6209 g 144 mm[Hg] 90 mm[Hg] Cassiabernice Monson MA [facility] 5 15:27:42 Social History Question Answer Notes LastModified by Organizat ion Details LastModified Time Tobacco Smoking Status Current Every Day Smoker Cassia Monson MA null, [facility] 09/16/2014 15:24:56 How Many Years Have You Smoked Tobacco? 40 [email or web address] Information not available 09/16/2014 Sex: Unknown Functional Status None recorded. Mental Status None recorded. Family History Relationship Description Onset Age of this Age Resolved Age Notes LastModified by Organization Details LastModified Time Mother Diabetes mellitus Not available 2015 15:12:52 Medical History Condition Response Anxiety Disorder Y High Blood Pressure Y Headaches Y COPD Y High Cholesterol Y Gynecological HistoryNo gynecological history recorded. Obstetrics History GPAL:G 0 P 0 0 0 0 Past Encounters Encounter ID Performer Location Encounter Start Date Encounter Closed Date Diagnosis/Indication Diagnosis SNOMED-CT Code Diagnosis ICD10 Code Diagnosis Note [id number] MAYANK Stringer [address] [place] [address] 09/16/2014 15:22:57 09/16/2014 15:50:43 Anxiety 67561559 462011 MD Seth Jett [facility] [address] [place] [address] 03/21/2015 14:57:15 03/21/2015 15:37:55 Acute bronchitis 99633608 [id number] MAYANK Stringer [address] [place] [address] 09/08/2015 15:10:42 09/08/2015 15:57:21 Essential hypertension 43470413 I10 Anxiety 37081026 F41.9 [id number] Felice Rizo PA-C [facility] [address] [place] [address] 09/26/2015 15:08:46 09/26/2015 15:57:59 Hyperlipidemia 51706192 E78.5 Essential hypertension 22810369 I10 Polyp of colon 27617519 K63.5 Health Concerns Section Related Observation LastModified by Organization Detai ls LastModified Time None Recorded Concern Status LastModified by Organization Details LastModified Time None Recorded Advance Directives Directive None Recorded Payers Encounter Date Sequence Insurance Name Policy Number Policy Cid Covered Member ID Cid Member ID Guarantor Name 09/16/2014 1 *SELF PAY* Jessica Alvesjohn 03/21/2015 1 *SELF PAY* Jessica Alvesjohn 09/08/2015 1 MEDICARE-OR (MEDICARE) Araceli Adry [id number] Araceli Adry 09/08/2015 2 [facility] (MEDICARE SUPPLEMENT) Araceli Adry [id number] Araceli Adry 09/26/2015 1 MEDICARE-OR (MEDICARE) Araceli Adry [id number] Araceli Adry 09/26/2015 2 [facility] (MEDICARE SUPPLEMENT) Araceli Adry [id number] Araceli Adry Notes Date Note Type Note Provider Name and Address Organization Details Recorded Time 09/16/2014 text/html 6 mos check on anxiety. Felice Rizo PA-C Attn: [address] [place], [address], [facility] - [facility] 09/16/2014 15:45:17 03/21/2015 text/html productive cough 100 degree fever at night. sinus pain Felice Rizo PA-C Attn: [address] [place], [address], [facility] 03/21/2015 15:17:12 09/08/2015 text/html needs labs and meds Felice Rizo PA-C Attn: [address] [place], [address], [facility] 09/08/2015 15:30:54 09/26/2015 text/html was out of cholesterol meds 1 week prior to these labs. see labs lovastatin 40 mg. needs a GI referral Felice Rizo PA-C Attn: [address] [facility], [place], [address], [facility] - [facility] 09/26/2015 15:47:02 OBGyn Episode No OBEpisode recorded.
== END 2024-11-18 13:04 | disposition home or self-care (01) ==
PROVIDERS: PCP Family Medicine; Visit Provider Family Medicine
DX: Z12.2 Encounter for screening for malignant neoplasm of respiratory organs (principal); F17.210 Nicotine dependence, cigarettes, uncomplicated
CPT/HCPCS: 71271

== ENCOUNTER 2025-04-16 13:47 | Outpatient (CLI) | payer MEDICARE, SELFPAY | END 2025-04-16 13:48 | disposition home or self-care (01) | LOC: ANHAUDIO 13:48 | PROVIDERS: PCP Family Medicine; Visit Provider Otolaryngology | DX: H90.3 Sensorineural hearing loss, bilateral (principal) | CPT/HCPCS: 92557; 92567 ==